=== PATIENT | female | born 1975 | race Caucasian/White ===

== ENCOUNTER → 2018-05-31 12:50 | Outpatient (CLI) | payer OTHER, SELFPAY ==
--- NOTE | 2018-05-31 12:53 | DI.RAD.S_ITS ---
PROCEDURE: XR FOOT LT MIN 3V INDICATIONS: foot inj TECHNIQUE: 3 views of the foot were acquired. COMPARISON: [facility], , FOOT COMP MIN 3VW (LT), 10/03/2014, 15:16. FINDINGS: Bones: No fractures or dislocations. No suspicious bony lesions. Mild first metatarsophalangeal joint degeneration. There is calcaneal spurring. Soft tissues: No tibiotalar joint effusion. Achilles tendon appears normal. IMPRESSION: 1. No fractures. 2. Mild degenerative joint disease. 3. Calcaneal spurring. Dictated by: Naomi Gordillo M.D. on 05/31/2018 at 17:40 Approved by: Naomi Gordillo M.D. on 05/31/2018 at 17:42
[2018-05-31 14:32] LABS: Add Manual Diff / Slide Review NO; Basophils Percent Auto 0.4 % (0-2); Eosinophils Percent Auto 0.3 % (2-4); Hematocrit 39.4 % (36-46); Hemoglobin 13.5 g/dL (12.0-16.0); Lymphocytes Percent Auto 29.4 % (25-40); Mean Corpuscular HGB Conc 34.2 % (30-36); Mean Corpuscular Hemoglobin 30.8 PG (26-34); Monocytes Percent Auto 4.6 % (3-14); Neutrophils Absolute Auto 5800 /uL (3000-5900); Neutrophils Percent Auto 65.3 % (50-75); Platelet Count 250 X10^3/uL (150-400); Red Blood Cell Count 4.37 X10^6/uL (4.0-5.2); Red Cell Distribution Width 13.6 % (11.6-14.8); White Blood Cell Count 8.8 X10^3/uL (4.5-11.0)
[2018-05-31 15:08] LABS: Erythrocyte Sedimentation Rate 21 MM/HR (0-20)
[2018-05-31 15:28] LABS: Prothrombin Time 10.7 SECONDS (10.1-12.7)
[2018-05-31 15:31] LABS: PTT Partial Thromboplastin Tim 30 SECONDS (26.4-36.2)
[2018-05-31 15:37] LABS: Alanine Aminotransferase 24 IU/L (9-52); Albumin 4.5 g/dL (3.5-5.0); Albumin Globulin Ratio 1.4 (1.0-2.8); Alkaline Phosphatase 65 U/L (38-126); Aspartate Aminotransferase 24 IU/L (14-36); BUN Creatinine Ratio 17.1 (6-22); Bilirubin Total 0.9 mg/dL (0.2-1.3); Blood Urea Nitrogen 12 mg/dL (7-17); C-Reactive Protein Quant < 0.5 mg/dL (<1.0); Calcium 9.6 mg/dL (8.4-10.2); Carbon Dioxide 29 mmol/L (22-32); Chloride 100 mmol/L (98-107); Cholesterol 162 mg/dL (140-199); Estimated Glomerular Filt Rate > 60.0 mL/min (>60); Globulin 3.3 g/dL (1.7-4.1); Glucose 93 mg/dL (70-100); HDL Cholesterol 45 mg/dL (40-60); HEMOLYSIS < 15 (0-50); LDL Cholesterol Calculated 89 mg/dL (<100); Potassium 4.1 mmol/L (3.4-5.1); Sodium 140 mmol/L (137-145); Total Protein 7.8 g/dL (6.3-8.2); Triglycerides 140 mg/dL (35-150)
[2018-05-31 15:49] LABS: Follicle Stimulating Hormone 1.98 mIU/mL; Luteinizing Hormone 2.55 mIU/mL
== END ==
PROVIDERS: PCP Family Medicine; Visit Provider Family Medicine
DX: R53.83 Other fatigue (principal); S99.929A Unspecified injury of unspecified foot, initial encounter
CPT/HCPCS: 36415; 73630; 80053; 80061; 83001; 83002; 84443; 85025; 85610; 85651; 85730; 86140

== ENCOUNTER → 2018-10-19 10:49 | Outpatient (CLI) | payer OTHER, SELFPAY ==
[2018-10-19 11:49] LABS: Add Manual Diff / Slide Review NO; Basophils Percent Auto 0.2 % (0-2); Eosinophils Percent Auto 0.4 % (2-4); Hematocrit 40.7 % (36-46); Hemoglobin 13.5 g/dL (12.0-16.0); Lymphocytes Percent Auto 15.9 % (25-40); Mean Corpuscular HGB Conc 33.1 % (30-36); Mean Corpuscular Hemoglobin 29.4 PG (26-34); Mean Corpuscular Volume 88.8 fL (80-100); Monocytes Percent Auto 4.8 % (3-14); Neutrophils Absolute Auto 9700 /uL (3000-5900); Neutrophils Percent Auto 78.7 % (50-75); Platelet Count 276 X10^3/uL (150-400); Red Blood Cell Count 4.59 X10^6/uL (4.0-5.2); White Blood Cell Count 12.4 X10^3/uL (4.5-11.0)
[2018-10-19 12:17] LABS: Alanine Aminotransferase 29 IU/L (9-52); Albumin 4.5 g/dL (3.5-5.0); Albumin Globulin Ratio 1.2 (1.0-2.8); Alkaline Phosphatase 76 U/L (38-126); Aspartate Aminotransferase 25 IU/L (14-36); BUN Creatinine Ratio 16.7 (6-22); Bilirubin Total 0.9 mg/dL (0.2-1.3); Blood Urea Nitrogen 10 mg/dL (7-17); Calcium 9.8 mg/dL (8.4-10.2); Carbon Dioxide 29 mmol/L (22-32); Chloride 100 mmol/L (98-107); Cholesterol 245 mg/dL (140-199); Estimated Glomerular Filt Rate > 60.0 mL/min (>60); Globulin 3.7 g/dL (1.7-4.1); Glucose 106 mg/dL (70-100); HDL Cholesterol 51 mg/dL (40-60); HEMOLYSIS < 15 (0-50); LDL Cholesterol Calculated 164 mg/dL (<100); Potassium 4.4 mmol/L (3.4-5.1); Sodium 141 mmol/L (137-145); Total Protein 8.2 g/dL (6.3-8.2); Triglycerides 148 mg/dL (35-150)
[2018-10-19 12:41] LABS: Thyroid Stimulating Hormone 0.95 uIU/mL (0.47-4.68)
== END ==
PROVIDERS: PCP Family Medicine; Visit Provider Family Medicine
DX: J32.9 Chronic sinusitis, unspecified (principal)
CPT/HCPCS: 36415; 80053; 80061; 84443; 85025

== ENCOUNTER → 2018-11-10 13:16 | Outpatient (CLI) | payer OTHER, SELFPAY ==
--- NOTE | 2018-11-10 13:18 | DI.RAD.S_ITS ---
PROCEDURE: XR CHEST 2V INDICATIONS: chest wall pain TECHNIQUE: 2 views of the chest were acquired. COMPARISON: [facility], CT, CHEST/ABDOMEN WITH CONTRAST, 02/02/2017, 14:23. FINDINGS: Surgical changes and devices: None. Lungs and pleura: No pleural effusions or pneumothorax. Lungs are clear. Mediastinum: Mediastinal contours are normal. Heart size is normal. Bones and chest wall: No suspicious bony abnormalities. Soft tissues appear unremarkable. IMPRESSION: No acute cardiopulmonary disease. Dictated by: Naomi Gordillo M.D. on 11/10/2018 at 15:12 Approved by: Naomi Gordillo M.D. on 11/10/2018 at 15:13
== END ==
PROVIDERS: PCP Family Medicine; Visit Provider Family Medicine
DX: R07.89 Other chest pain (principal)
CPT/HCPCS: 71046

== ENCOUNTER → 2019-07-12 12:38 | Outpatient (CLI) | payer OTHER, SELFPAY ==
--- NOTE | 2019-07-12 12:40 | DI.RAD.S_ITS ---
PROCEDURE: XR KNEE RT 3V INDICATIONS: right knee pain/ popping TECHNIQUE: 3 views of the knee were acquired. COMPARISON: [facility] [place], [place], KNEE 3VW (RT), 03/03/2011, 9:06. FINDINGS: Bones: No fractures or dislocations. No suspicious bony lesions. Mild tricompartmental osteoarthritis. Soft tissues: No joint effusion. No suspicious soft tissue calcifications. IMPRESSION: 1. No acute osseous lesion. If symptoms and/or clinical suspicion for pathology persists, further assessment with advanced imaging (e.g. CT, MRI or bone scan) may be helpful. 2. Mild tricompartmental osteoarthritis. Dictated by: Tita Nobles MD, PhD on 07/12/2019 at 16:53 Approved by: Tita Nobles MD, PhD on 07/12/2019 at 16:55
== END ==
PROVIDERS: PCP Family Medicine; Visit Provider Family Medicine
DX: M17.11 Unilateral primary osteoarthritis, right knee (principal)
CPT/HCPCS: 73562

== ENCOUNTER → 2019-12-20 11:43 | Outpatient (CLI) | payer OTHER, SELFPAY ==
--- NOTE | 2019-12-20 11:44 | DI.RAD.S_ITS ---
PROCEDURE: XR KNEE RT 3V INDICATIONS: medial rt knee pain, status post fall TECHNIQUE: 3 views of the knee were acquired. COMPARISON: [facility], CR, XR KNEE RT 3V, 07/12/2019, 12:46. FINDINGS: Bones: No fractures or dislocations. No suspicious bony lesions. Soft tissues: No joint effusion. No suspicious soft tissue calcifications. IMPRESSION: Source of knee pain is not seen. No joint effusion or loose body found. No prior trauma seen. Dictated by: Hans Jauregui M.D. on 12/20/2019 at 12:18 Approved by: Hans Jauregui M.D. on 12/20/2019 at 12:22
== END ==
PROVIDERS: PCP Family Medicine; Referring Provider Family Medicine; Visit Provider Family Medicine
DX: M25.561 Pain in right knee (principal); R55 Syncope and collapse
CPT/HCPCS: 73562

== ENCOUNTER → 2020-01-01 16:51 | Outpatient (CLI) | payer OTHER, SELFPAY ==
--- NOTE | 2020-01-01 16:52 | DI.MRI.S_ITS ---
PROCEDURE: MR KNEE RT WO CON INDICATIONS: Medial knee joint pain TECHNIQUE: Noncontrast sagittal PD fast spin echo and T2 fast spin echo with fat saturation, sagittal 3-D FLASH with fat saturation; coronal T1 spin echo and PD fast spin echo with fat saturation, and axial PD fast spin echo with fat saturation through the knee. COMPARISON: [facility], CR, XR KNEE RT 3V, 12/20/2019, 11:50. [facility], CR, XR KNEE RT 3V, 07/12/2019, 12:46. CR, KNEE 3VW (RT), 02/19/2009, 17:34. FINDINGS: Image quality: Excellent. Menisci: The medial and lateral menisci demonstrate normal morphology and internal signal. The meniscal root ligaments appear intact. Cruciate ligaments: The anterior and posterior cruciate ligaments appear intact. Medial structures: The medial collateral ligament appears intact but the substance of the MCL and is contiguous extension anteriorly into the medial patellar retinaculum demonstrates a linear fluid signal best seen on series 6 image 10, with immediately adjacent mild overlying edema in the anterior medial subcutaneous fat. The appearance is suggestive of a partial thickness tear within the substance of this retinaculum, and is considered unlikely to represent a manifestation of isolated tendinitis.. The posterior oblique ligament, semimembranosus tendon insertions, oblique popliteal ligament, and meniscocapsular junction appear intact. Visualized portions of the pes anserinus tendons appear normal. No abnormal bursal fluid. Lateral structures: The lateral collateral ligament, long and short heads of the biceps femoris tendon appear intact. The popliteus tendon appears normal; the popliteofibular ligament appears intact. The posterosuperior and anteroinferior popliteomeniscal fascicles appear intact. The arcuate and fabellofibular ligaments appear intact, on either side of the lateral inferior geniculate artery. Iliotibial band appears normal. Anterior structures: The quadriceps and patellar tendons appear intact. Patellar alignment is normal. No femoral trochlear dysplasia or ventral trochlear prominence. No edema in the infrapatellar fat pad. Bones and cartilage: No bone marrow contusions or fractures. The cartilage of the medial and lateral femorotibial compartments, as well as the patellofemoral compartment, appears normal in thickness. Joint space: There is physiologic knee joint fluid. No Marc's cyst. Normal appearing synovial plicae are incidentally noted. IMPRESSION: No meniscal injury, no evidence of anterior or posterior cruciate ligament injury. As discussed above there is a finding of a sharply demarcated linear band of fluid signal within the medial collateral ligament contiguously extending anteriorly within the medial patellar retinaculum. A partial-thickness anterior-posterior tear within the substance of this retinaculum is the likely etiology for that appearance. No joint effusion, no cartilage injury is found. Dictated by: Hans Jauregui M.D. on 01/02/2020 at 13:39 Approved by: Hans Jauregui M.D. on 01/02/2020 at 13:44
== END ==
PROVIDERS: PCP Family Medicine; Referring Provider Family Medicine; Visit Provider Family Medicine
DX: M25.561 Pain in right knee (principal)
CPT/HCPCS: 73721

== ENCOUNTER → 2020-01-29 13:53 | Outpatient (CLI) | payer OTHER, SELFPAY ==
--- NOTE | 2020-03-01 15:25 | PM.CARDMON.1 ---
[employer] Report Referral & Results Date Patient Seen: 01/29/20 Requesting provider: Romie Montiel Indication: Syncope Duration of monitoring (days): 14 Diary information: There were no patient diary entries or patient triggered events noted Data: Minimum heart rate identified was 43 beats per minute at 07:36 on 02/12/2020 Maximum sinus heart rate was 159 beats per minute at 15:59 on 01/31/2020 Maximum overall heart rate was 179 beats per minute at 03:20 on 02/09/2020 during a 16 beat run of SVT Less than 1% of identified beats or either ventricular supraventricular ectopic in origin Only 1 run of SVT was noted as above Impression: Minor dysrhythmias as above. No etiology for syncope identified on this study
== END ==
PROVIDERS: PCP Family Medicine; Referring Provider Family Medicine; Visit Provider Family Medicine
DX: R55 Syncope and collapse (principal)
CPT/HCPCS: 0296T; 0298T

== ENCOUNTER → 2020-06-13 12:41 | Outpatient (CLI) | payer OTHER, SELFPAY ==
--- NOTE | 2020-06-13 12:44 | DI.RAD.S_ITS ---
PROCEDURE: XR SACRUM COCCYX MIN 2V INDICATIONS: Coccydynia TECHNIQUE: 3 views of the sacrum and coccyx acquired. COMPARISON: [facility], CT, ABDOMEN/PELVIS WITH CONTRAST, 07/29/2017, 21:28. FINDINGS: Bones: Possible coccyx fracture although radiographically this is age indeterminate and is likely chronic. Soft tissues: Visualized bowel gas pattern is normal. No suspicious soft tissue densities. IMPRESSION: Possible coccyx fracture however radiographically this appears chronic. This appears unchanged since prior CT dated 07/29/17. Dictated by: Rio Hill M.D. on 06/13/2020 at 15:08 Approved by: Rio Hill M.D. on 06/13/2020 at 15:11
[2020-06-13 13:28] LABS: Add Manual Diff / Slide Review NO; Basophils Absolute Auto 0 /uL (0-100); Basophils Percent Auto 0.5 % (0-2); Eosinophils Absolute Auto 0 /uL (0-450); Eosinophils Percent Auto 0.1 % (2-4); Hematocrit 39.8 % (36-46); Hemoglobin 13.6 g/dL (12.0-16.0); Lymphocytes Absolute Auto 2100 /uL (1100-4500); Lymphocytes Percent Auto 22.9 % (25-40); Mean Corpuscular HGB Conc 34.2 % (30-36); Mean Corpuscular Hemoglobin 32.3 PG (26-34); Mean Corpuscular Volume 94.3 fL (80-100); Monocytes Absolute Auto 400 /uL (0-900); Monocytes Percent Auto 4.7 % (3-14); Neutrophils Absolute Auto 6700 /uL (1500-7000); Neutrophils Percent Auto 71.8 % (50-75); Platelet Count 226 X10^3/uL (150-400); Red Blood Cell Count 4.22 X10^6/uL (4.0-5.2); White Blood Cell Count 9.3 X10^3/uL (4.5-11.0)
[2020-06-13 13:43] LABS: Prothrombin Time 11.4 SECONDS (10.1-12.7)
[2020-06-13 14:02] LABS: Alanine Aminotransferase 13 IU/L (<35); Albumin 4.3 g/dL (3.5-5.0); Albumin Globulin Ratio 1.5 (1.0-2.8); Alkaline Phosphatase 52 U/L (38-126); Aspartate Aminotransferase 20 IU/L (14-36); BUN Creatinine Ratio 15.4 (6-22); Blood Urea Nitrogen 10 mg/dL (7-17); Calcium 9.8 mg/dL (8.4-10.2); Carbon Dioxide 29 mmol/L (22-32); Chloride 103 mmol/L (98-107); Estimated Glomerular Filt Rate > 60.0 mL/min (>60); Globulin 2.8 g/dL (1.7-4.1); Glucose 96 mg/dL (70-100); HEMOLYSIS < 15 (0-50); Potassium 3.8 mmol/L (3.4-5.1); Sodium 137 mmol/L (137-145); Total Protein 7.1 g/dL (6.3-8.2)
[2020-06-13 14:04] LABS: C-Reactive Protein Quant < 0.5 mg/dL (<1.0); Erythrocyte Sedimentation Rate 6 MM/HR (0-20)
== END ==
PROVIDERS: PCP Family Medicine; Referring Provider Family Medicine; Visit Provider Family Medicine
DX: M53.3 Sacrococcygeal disorders, not elsewhere classified (principal); K62.5 Hemorrhage of anus and rectum
CPT/HCPCS: 36415; 72220; 80053; 85025; 85610; 85651; 86140

== ENCOUNTER → 2020-08-08 17:15 | Outpatient (CLI) | payer OTHER, SELFPAY ==
[2020-08-08 17:23] LABS: Bacteria Urine None Seen
[2020-08-08 18:51] LABS: Culture Indicated Urine Cult Not Indicated; RBC Urine 0-1/HPF (0-5/HPF); Squamous Epithelial Cell Urine 0-1 /HPF (0-5/HPF); WBC Urine 0-1/HPF (0-5/HPF)
== END ==
PROVIDERS: PCP Family Medicine; Referring Provider Family Medicine; Visit Provider Family Medicine
DX: R30.0 Dysuria (principal)
CPT/HCPCS: 81015

== ENCOUNTER 2021-01-19 12:54 | Emergency (ER) | payer OTHER, SELFPAY ==
[2021-01-19] VITALS (9 sets, daily range): BP systolic 102–143; BP diastolic 62–93; PULSE 60–121; RESP 11–23; TEMP 36.7; O2SAT 99–100; BMI 28.0
[2021-01-19] MEDS: SODIUM CHLORIDE 0.9% 1,000 ML 1000 ML IV (13:19)
[2021-01-19] MEDS: ONDANSETRON 4 MG/2 ML INJ IV (13:20)
[2021-01-19 13:25] LABS: Add Manual Diff / Slide Review NO; Basophils Absolute Auto 0 /uL (0-100); Basophils Percent Auto 0.4 % (0-2); Eosinophils Absolute Auto 0 /uL (0-450); Eosinophils Percent Auto 0.8 % (2-4); Hematocrit 40.2 % (36-46); Hemoglobin 13.9 g/dL (12.0-16.0); Lymphocytes Absolute Auto 2100 /uL (1100-4500); Mean Corpuscular HGB Conc 34.6 % (30-36); Mean Corpuscular Hemoglobin 32.4 PG (26-34); Mean Corpuscular Volume 93.6 fL (80-100); Monocytes Absolute Auto 400 /uL (0-900); Monocytes Percent Auto 6.9 % (3-14); Neutrophils Absolute Auto 3100 /uL (1500-7000); Neutrophils Percent Auto 54.9 % (50-75); Platelet Count 213 X10^3/uL (150-400); Red Blood Cell Count 4.29 X10^6/uL (4.0-5.2); Red Cell Distribution Width 12.3 % (11.6-14.8); White Blood Cell Count 5.6 X10^3/uL (4.5-11.0)
--- NOTE | 2021-01-19 13:30 | ED.ABDPAIN ---
HPI - Abdominal Pain <Ellie DukeMEDARDOP-BC - Last Filed: 01/19/21 17:25> General Chief Complaint: Abdominal Pain Stated Complaint: Stomach Pain, Nausea, Chest Pains Time Seen by Provider: 01/19/21 12:57 Source: patient Mode of arrival: Ambulatory Limitations: no limitations History of Present Illness HPI narrative: The patient is a 45-year-old female former smoker with history of coronavirus infection in November who presents with a chief complaint of abdominal pain over the past few days. She states it is worse after she eats. She had an episode of chest pain yesterday. Complains of nausea, no vomiting. She states she was recently treated for constipation with MiraLax as well as magnesium citrate. This was treated a week before her abdominal pain started. She denies any fevers muscle aches or chills. Complains of abdominal pain cramping in epigastric pain. She states she is unable eat, endorses a 5 lb weight less recently. She wonders if she has a COVID long hauler syndrome. Denies any vaginal discharge. States the pain is in the epigastric, upper abdomen area Related Data Home Medications Medication Instructions Recorded Confirmed naproxen 500 mg tablet 500 mg PO Q12H PRN tab 06/13/20 01/22/21 zolmitriptan 5 mg nasal spray 1 spray NASAL Q24H PRN each 06/13/20 01/22/21 amitriptyline 10 mg tablet 10 mg PO BEDTIME 12/23/20 01/22/21 topiramate 25 mg tablet See Rx Instructions PO DAILY 12/23/20 01/22/21 Previous Rx's Medication Instructions Recorded epinephrine 0.3 mg/0.3 mL 0.3 mg IM SEE INSTRUCTIONS #1 each 07/30/20 injection, auto-injector omeprazole 20 mg capsule,delayed 20 mg PO QDAY #90 cap 07/30/20 release ondansetron 4 mg PO Q6H PRN #14 tab 01/19/21 sucralfate [Carafate] 10 ml PO QACHS #420 ml 01/19/21 Allergies Allergy/AdvReac Type Severity Reaction Status Date / Time bee venom protein (honey bee) Allergy Severe anaphylaxis Verified 01/22/21 15:27 [BEE VENOM PROTEIN (HONEY BEE)] Mosquito Allergy Severe Swelling Uncoded 01/22/21 15:27 and turns purple Review of Systems <TIMOTEO Mustafa - Last Filed: 01/19/21 17:25> Review of Systems Narrative: GENERAL: Denies chills, fatigue, malaise, fever, sweats. HEENT: Denies sinus pain, ear pain, sore throat, difficulty swallowing, dizziness. RESPIRATORY: Denies dyspnea, cough, wheezing, hemoptysis, sputum. CARDIOVASCULAR: Denies chest pain, palpitations, orthopnea, edema, GASTROINTESTINAL: See HPI : Denies dysuria, frequency, incontinence, hematuria, urinary retention. MUSCULOSKELETAL: denies weakness, joint pain, or bony pain SKIN: Denies rash, skin lesions, or other NEUROLOGIC: Denies weakness, headache, numbness, change in speech, confusion, seizures, incoordination. PSYCHIATRIC: No concerning psychosocial issues. 12 point review of systems is negative except for those stated above Patient History <TIMOTEO Mustafa - Last Filed: 01/19/21 17:25> Medical History Abnormal Pap smear of cervix (1996) Chronic headaches (1999) Constipation COVID-19 Endometriosis (1996) Fibroids (1996) Foot pain (2010) GERD (gastroesophageal reflux disease) (2012) History of heavy periods (1996) IBS (irritable bowel syndrome) (2012) Infertility (1996) Irregular periods/menstrual cycles (1996) Ovarian cyst (1996) Painful menstrual periods (1996) Recurrent sinusitis (2011) Urinary incontinence (2004) Surgical History Anesthesia History of bilateral salpingectomy (03/20/16) History of removal of cyst (2003) Status post hysterectomy (06/2009) Status post laparoscopy (1997) Status post laparoscopy (1998) Status post laparoscopy (2004) Status post laparoscopy (2007) Status post laparoscopy (03/20/16) Status post laparoscopy (12/10/17) Status post left foot surgery (2011) Status post left foot surgery (2010) Family History Brother Age: 46 High cholesterol Hiatal hernia Schatzki's ring Father Age: 70 Diabetes mellitus High cholesterol Grandfather Heart disease Heart attack Mother Age: 64 Essential hypertension Grandmother Perforated intestine Grandfather Colon cancer Grandmother Diabetes mellitus Social History Smoking Status: Former smoker Tobacco: How many years used: 2 alcohol intake: current (2 drinks per week ) substance use type: does not use Smoking Status: Former smoker alcohol intake frequency: 0-2 drinks per day Substance Use Type: does not use Exam <TIMOTEO Mustafa - Last Filed: 01/19/21 17:25> Narrative Exam Narrative: GENERAL: This is a well-nourished, well-developed patient, in no acute distress HEAD: Atraumatic. Normocephalic. No temporal or scalp tenderness. EYES: Pupils equal round and reactive. Extraocular motions intact. No scleral icterus. No injection or drainage. ENT: Nose without bleeding, purulent drainage or septal hematoma. Wearing a mask Airway patent. NECK: Trachea midline. No JVD or lymphadenopathy. Supple, nontender, no meningeal signs. CARDIOVASCULAR: Regular rate and rhythm RESPIRATORY: Clear to auscultation. Breath sounds equal bilaterally. No wheezes, rales, or rhonchi. No cough. No increased respiratory effort. No accessory muscle use GASTROINTESTINAL: Abdomen soft, diffusely tender to palpation, slight occasional guarding middle right side of abdomen, active bowel sounds all 4 quadrant No hepato-splenomegaly, or palpable masses. No guarding. EXTREMITIES: No clubbing, cyanosis, or edema. No joint tenderness, effusion, or edema noted. BACK: Nontender without deformity or crepitance. No flank tenderness. NEURO: AOx3. SKIN: No rash or erythema on visible skin Initial Vital Signs Initial Vital Signs: Vital Signs Temperature 98.1 F 01/19/21 12:55 Pulse Rate 121 H 01/19/21 12:55 Respiratory Rate 20 01/19/21 12:55 Blood Pressure 143/93 H 01/19/21 12:55 Pulse Oximetry 99 01/19/21 12:55 <Sherine Smyth DO - Last Filed: 01/27/21 10:23> Initial Vital Signs Initial Vital Signs: Vital Signs Temperature 98.1 F 01/19/21 12:55 Pulse Rate 121 H 01/19/21 12:55 Respiratory Rate 20 01/19/21 12:55 Blood Pressure 143/93 H 01/19/21 12:55 Pulse Oximetry 99 01/19/21 12:55 Scores <TIMOTEO Mustafa - Last Filed: 01/19/21 17:25> GCS Rylee coma scale eye opening: Spontaneous Rylee coma scale verbal response: Orientated [place] coma scale motor response: Obey commands Rylee coma scale total score: 15 Course <TIMOTEO Mustafa - Last Filed: 01/19/21 17:25> Orders Ordered: Discontinued Medications Al Hydrox/Mg Hydrox/Simethicone 20 ml/ Lidocaine HCl 15 ml 0 ml PO NOW ONE Stop: 01/19/21 15:55 Last Admin: 01/19/21 16:00 Dose: 35 ml Documented by: AFUA Sodium Chloride (Normal Saline 0.9%) 1,000 mls @ 1,000 mls/hr IV BOLUS ONE Stop: 01/19/21 14:05 Last Infusion: 01/19/21 14:37 Dose: 0 mls/hr Documented by: Admin: 01/19/21 13:19 Dose: 1,000 mls/hr Documented by: AFUA Magnesium Citrate (Magnesium Citrate 300 Ml Solution) 300 ml PO NOW ONE Stop: 01/19/21 15:55 Last Admin: 01/19/21 16:00 Dose: 300 ml Documented by: AFUA Ondansetron HCl (Ondansetron 4 Mg/2 Ml Inj) 4 mg IV NOW ONE Stop: 01/19/21 13:00 Last Admin: 01/19/21 13:20 Dose: 4 mg Documented by: AFUA Sucralfate (Sucralfate 1 Gm/10 Ml Oral Susp) 1 gm PO NOW ONE Stop: 01/19/21 15:55 Last Admin: 01/19/21 15:59 Dose: 1 gm Documented by: AFUA Vital Signs Vital signs: Vital Signs - 8 hr 01/19/21 12:55 01/19/21 13:06 01/19/21 13:30 Temperature 98.1 F Pulse Rate 121 H 85 71 Respiratory Rate 20 23 20 Blood Pressure 143/93 H 141/79 H 117/73 Pulse Oximetry 99 99 01/19/21 14:00 01/19/21 14:30 01/19/21 15:00 Temperature Pulse Rate 60 66 64 Respiratory Rate 21 17 14 Blood Pressure 111/66 102/62 Pulse Oximetry 100 100 100 01/19/21 15:30 01/19/21 16:00 01/19/21 16:30 Temperature Pulse Rate 72 63 73 Respiratory Rate 16 11 L 15 Blood Pressure 109/71 112/71 Pulse Oximetry 100 100 99 <Sherine Smyth, DO - Last Filed: 01/27/21 10:23> Orders Ordered: Discontinued Medications Al Hydrox/Mg Hydrox/Simethicone 20 ml/ Lidocaine HCl 15 ml 0 ml PO NOW ONE Stop: 01/19/21 15:55 Last Admin: 01/19/21 16:00 Dose: 35 ml Documented by: AFUA Sodium Chloride (Normal Saline 0.9%) 1,000 mls @ 1,000 mls/hr IV BOLUS ONE Stop: 01/19/21 14:05 Last Infusion: 01/19/21 14:37 Dose: 0 mls/hr Documented by: Admin: 01/19/21 13:19 Dose: 1,000 mls/hr Documented by: AFUA Magnesium Citrate (Magnesium Citrate 300 Ml Solution) 300 ml PO NOW ONE Stop: 01/19/21 15:55 Last Admin: 01/19/21 16:00 Dose: 300 ml Documented by: AFUA Ondansetron HCl (Ondansetron 4 Mg/2 Ml Inj) 4 mg IV NOW ONE Stop: 01/19/21 13:00 Last Admin: 01/19/21 13:20 Dose: 4 mg Documented by: AFUA Sucralfate (Sucralfate 1 Gm/10 Ml Oral Susp) 1 gm PO NOW ONE Stop: 01/19/21 15:55 Last Admin: 01/19/21 15:59 Dose: 1 gm Documented by: AFUA Vital Signs Vital signs: Vital Signs - 8 hr 01/19/21 12:55 01/19/21 13:06 01/19/21 13:30 Temperature 98.1 F Pulse Rate 121 H 85 71 Respiratory Rate 20 23 20 Blood Pressure 143/93 H 141/79 H 117/73 Pulse Oximetry 99 99 01/19/21 14:00 01/19/21 14:30 01/19/21 15:00 Temperature Pulse Rate 60 66 64 Respiratory Rate 21 17 14 Blood Pressure 111/66 102/62 Pulse Oximetry 100 100 100 01/19/21 15:30 01/19/21 16:00 01/19/21 16:30 Temperature Pulse Rate 72 63 73 Respiratory Rate 16 11 L 15 Blood Pressure 109/71 112/71 Pulse Oximetry 100 100 99 MDM - Abdominal Pain <Ellie Duke, LAY MIDWIFE- - Last Filed: 01/19/21 17:25> Lab Data Attestation: I reviewed the patient's lab results. Result diagrams: 01/19/21 13:16 01/19/21 13:16 Labs: Lab Results 01/19/21 01/19/21 01/19/21 Range/Units 13:16 13:16 13:16 WBC 5.6 (4.5-11.0) X10^3/uL RBC 4.29 (4.0-5.2) X10^6/uL Hgb 13.9 (12.0-16.0) g/dL Hct 40.2 (36-46) % MCV 93.6 (80-100) fL MCH 32.4 (26-34) PG MCHC 34.6 (30-36) % RDW 12.3 (11.6-14.8) % Plt Count 213 (150-400) X10^3/uL Neut % (Auto) 54.9 (50-75) % Lymph % (Auto) 37.0 (25-40) % [place] % (Auto) 6.9 (3-14) % Eos % (Auto) 0.8 L (2-4) % Baso % (Auto) 0.4 (0-2) % Neut # (Auto) 3100 (9497-6946) /uL Lymph # (Auto) 2100 (7850-7514) /uL [place] # (Auto) 400 (0-900) /uL Eos # (Auto) 0 (0-450) /uL Baso # (Auto) 0 (0-100) /uL PT 11.4 (10.1-12.7) SECONDS INR 1.0 (0.9-1.3) APTT 35 D (26.4-36.2) SECONDS D-Dimer < 200 (<230) ng/mL Sodium 139 (137-145) mmol/L Potassium 3.9 (3.4-5.1) mmol/L Chloride 107 (98-107) mmol/L Carbon Dioxide 24 (22-32) mmol/L BUN 11 (7-17) mg/dL Creatinine 0.61 (0.52-1.04) mg/dL Estimated GFR > 60.0 (>60) mL/min BUN/Creatinine Ratio 18.0 (6-22) Glucose 103 H (70-100) mg/dL Calcium 9.6 (8.4-10.2) mg/dL Total Bilirubin 0.8 (0.2-1.3) mg/dL AST 28 (14-36) IU/L ALT 31 (<35) IU/L Alkaline Phosphatase 46 (38-126) U/L Total Creatine Kinase 55 (30-135) U/L CK-MB (CK-2) TNP CK-MB (CK-2) Rel Index TNP Troponin I < 0.012 (0.01-0.034) ng/mL NT-Pro-B Natriuret Pep (<125) pg/mL Total Protein 7.4 (6.3-8.2) g/dL Albumin 4.3 (3.5-5.0) g/dL Globulin 3.1 (1.7-4.1) g/dL Albumin/Globulin Ratio 1.4 (1.0-2.8) Amylase 51 (30-110) U/L Lipase 42 (23-300) U/L 01/19/21 Range/Units 13:16 WBC (4.5-11.0) X10^3/uL RBC (4.0-5.2) X10^6/uL Hgb (12.0-16.0) g/dL Hct (36-46) % MCV (80-100) fL MCH (26-34) PG MCHC (30-36) % RDW (11.6-14.8) % Plt Count (150-400) X10^3/uL Neut % (Auto) (50-75) % Lymph % (Auto) (25-40) % [place] % (Auto) (3-14) % Eos % (Auto) (2-4) % Baso % (Auto) (0-2) % Neut # (Auto) (7521-8052) /uL Lymph # (Auto) (7170-4087) /uL [place] # (Auto) (0-900) /uL Eos # (Auto) (0-450) /uL Baso # (Auto) (0-100) /uL PT (10.1-12.7) SECONDS INR (0.9-1.3) APTT (26.4-36.2) SECONDS D-Dimer (<230) ng/mL Sodium (137-145) mmol/L Potassium (3.4-5.1) mmol/L Chloride (98-107) mmol/L Carbon Dioxide (22-32) mmol/L BUN (7-17) mg/dL Creatinine (0.52-1.04) mg/dL Estimated GFR (>60) mL/min BUN/Creatinine Ratio (6-22) Glucose (70-100) mg/dL Calcium (8.4-10.2) mg/dL Total Bilirubin (0.2-1.3) mg/dL AST (14-36) IU/L ALT (<35) IU/L Alkaline Phosphatase (38-126) U/L Total Creatine Kinase (30-135) U/L CK-MB (CK-2) CK-MB (CK-2) Rel Index Troponin I (0.01-0.034) ng/mL NT-Pro-B Natriuret Pep 74 (<125) pg/mL Total Protein (6.3-8.2) g/dL Albumin (3.5-5.0) g/dL Globulin (1.7-4.1) g/dL Albumin/Globulin Ratio (1.0-2.8) Amylase (30-110) U/L Lipase (23-300) U/L Point of care testing: Urine Dip Bedside Urine Glucose Negative Bedside Urine Bilirubin - Negative Bedside Urine Ketone + 15 Urine Specific [place] 1.015 Bedside Urine Occult Blood - Negative Bedside Urine pH 6.5 Bedside Urine Protein - Negative Bedside Urine Urobilinogen - Negative Bedside Urine Nitrite - Negative Bedside Urine Leukocytes - Negative Esterase Imaging Data CT scan - abdomen/pelvis: Radiologist's Impression: [address] [id number] Scan ReportSigned Patient: Carmelita Olivares JMR#: [id number]: [id number]:[id number]/Sex: 45 / FDate of Service: 01/19/21Loc: EDAccession Number: [id number] Procedure: CT abdomen pelvis w con Ordering Provider: Ellie Duke-BC PROCEDURE: CT ABDOMEN PELVIS W CON INDICATIONS: abd pain, weight loss, nausea TECHNIQUE: After the administration of intravenous contrast, 5 mm thick sections acquired from the diaphragm to the symphysis. 5 mm coronal and sagittal reformats were acquired. For radiation dose reduction, the following was used: automated exposure control, adjustment of mA and/or kV according to patient size. COMPARISON: [facility], CT, ABDOMEN/PELVIS WITH CONTRAST, 07/29/2017, 21:28. FINDINGS: Image quality: Excellent. ABDOMEN: Lung bases: Lung bases are clear. Heart size is normal. Solid organs: Liver is normal in size and enhancement. Gallbladder is surgically absent. Biliary system is non dilated. Pancreas enhances normally. Spleen is normal in size and enhancement. No adrenal nodules. Kidneys demonstrate normal size and enhancement, without hydronephrosis. Peritoneum and bowel: Bowel loops demonstrate normal wall thickness and caliber. No free fluid or air. Sigmoid diverticulosis without evidence of diverticulitis. Large amount right colonic fecal debris. Normal appendix. Nodes and vessels: No retroperitoneal or mesenteric adenopathy by size criteria. Aorta and inferior vena cava are normal in size. Miscellaneous: No ventral hernias. PELVIS: Genitourinary: Bladder wall thickness is normal. Miscellaneous: No inguinal hernias or adenopathy. Remote hysterectomy. Bilateral ovarian cysts. Bones: No suspicious bony lesions. No vertebral body compression fractures. IMPRESSION: 1. No evidence of acute abdominal process. 2. Sigmoid diverticulosis. 3. Large right colonic fecal load. Dictated by: Francesco Bailey M.D. on 01/19/2021 at 14:08 Approved by: Francesco Bailey M.D. on 01/19/2021 at 14:21 ECG Data Attestation: I personally reviewed and interpreted this ECG as follows: Interpretation: Normal sinus rhythm. Ventricular rate 70. P.r. interval 154. QRS 86. No ectopy noted. Viewed by Dr Libra MENDOZA Narrative Medical decision making narrative: The patient is a 45-year-old female who presents with a chief complaint of an episode of chest pain yesterday as well as abdominal pain and discomfort. She has a history of GERD as well as coronavirus, has had slight episode of chest pain off and on since COVID. Overall her lab work is reassuring, no leukocytosis, negative troponin. However given to her pain to palpation I did get a CT abdomen pelvis. D-dimer helps rule out PE. Her CT scan shows a large right colonic fecal load. I discussed at length remedies for constipation, magnesium citrate, increasing fiber, increasing fluid, stool softener, occasional senna. She was discharged with magnesium citrate. Low suspicion of cardiac etiology given her negative D-dimer, negative troponin the next day after an episode of chest pain. Could be related to her acid reflux, so she was given GI cocktail and Carafate which she states helped improve her pain a lot. I encouraged follow-up with primary care provider in the next few days as well as very strict ER return precautions including abdominal pain with fever, inability keep down fluids etcetera. Patient is able to tolerate p.o. in the emergency department. No questions or concerns upon discharge states understanding return precautions as well as follow-up care. <Sherine Smyth, DO - Last Filed: 01/27/21 10:23> Lab Data Labs: Lab Results 01/19/21 01/19/21 01/19/21 Range/Units 13:16 13:16 13:16 WBC 5.6 (4.5-11.0) X10^3/uL RBC 4.29 (4.0-5.2) X10^6/uL Hgb 13.9 (12.0-16.0) g/dL Hct 40.2 (36-46) % MCV 93.6 (80-100) fL MCH 32.4 (26-34) PG MCHC 34.6 (30-36) % RDW 12.3 (11.6-14.8) % Plt Count 213 (150-400) X10^3/uL Neut % (Auto) 54.9 (50-75) % Lymph % (Auto) 37.0 (25-40) % [place] % (Auto) 6.9 (3-14) % Eos % (Auto) 0.8 L (2-4) % Baso % (Auto) 0.4 (0-2) % Neut # (Auto) 3100 (8748-8753) /uL Lymph # (Auto) 2100 (0678-5665) /uL [place] # (Auto) 400 (0-900) /uL Eos # (Auto) 0 (0-450) /uL Baso # (Auto) 0 (0-100) /uL PT 11.4 (10.1-12.7) SECONDS INR 1.0 (0.9-1.3) APTT 35 D (26.4-36.2) SECONDS D-Dimer < 200 (<230) ng/mL Sodium 139 (137-145) mmol/L Potassium 3.9 (3.4-5.1) mmol/L Chloride 107 (98-107) mmol/L Carbon Dioxide 24 (22-32) mmol/L BUN 11 (7-17) mg/dL Creatinine 0.61 (0.52-1.04) mg/dL Estimated GFR > 60.0 (>60) mL/min BUN/Creatinine Ratio 18.0 (6-22) Glucose 103 H (70-100) mg/dL Calcium 9.6 (8.4-10.2) mg/dL Total Bilirubin 0.8 (0.2-1.3) mg/dL AST 28 (14-36) IU/L ALT 31 (<35) IU/L Alkaline Phosphatase 46 (38-126) U/L Total Creatine Kinase 55 (30-135) U/L CK-MB (CK-2) TNP CK-MB (CK-2) Rel Index TNP Troponin I < 0.012 (0.01-0.034) ng/mL NT-Pro-B Natriuret Pep (<125) pg/mL Total Protein 7.4 (6.3-8.2) g/dL Albumin 4.3 (3.5-5.0) g/dL Globulin 3.1 (1.7-4.1) g/dL Albumin/Globulin Ratio 1.4 (1.0-2.8) Amylase 51 (30-110) U/L Lipase 42 (23-300) U/L // Range/Units 13:16 WBC (4.5-11.0) X10^3/uL RBC (4.0-5.2) X10^6/uL Hgb (12.0-16.0) g/dL Hct (36-46) % MCV (80-100) fL MCH (26-34) PG MCHC (30-36) % RDW (11.6-14.8) % Plt Count (150-400) X10^3/uL Neut % (Auto) (50-75) % Lymph % (Auto) (25-40) % [place] % (Auto) (3-14) % Eos % (Auto) (2-4) % Baso % (Auto) (0-2) % Neut # (Auto) (7366-1692) /uL Lymph # (Auto) (3577-5278) /uL [place] # (Auto) (0-900) /uL Eos # (Auto) (0-450) /uL Baso # (Auto) (0-100) /uL PT (10.1-12.7) SECONDS INR (0.9-1.3) APTT (26.4-36.2) SECONDS D-Dimer (<230) ng/mL Sodium (137-145) mmol/L Potassium (3.4-5.1) mmol/L Chloride (98-107) mmol/L Carbon Dioxide (22-32) mmol/L BUN (7-17) mg/dL Creatinine (0.52-1.04) mg/dL Estimated GFR (>60) mL/min BUN/Creatinine Ratio (6-22) Glucose (70-100) mg/dL Calcium (8.4-10.2) mg/dL Total Bilirubin (0.2-1.3) mg/dL AST (14-36) IU/L ALT (<35) IU/L Alkaline Phosphatase (38-126) U/L Total Creatine Kinase (30-135) U/L CK-MB (CK-2) CK-MB (CK-2) Rel Index Troponin I (0.01-0.034) ng/mL NT-Pro-B Natriuret Pep 74 (<125) pg/mL Total Protein (6.3-8.2) g/dL Albumin (3.5-5.0) g/dL Globulin (1.7-4.1) g/dL Albumin/Globulin Ratio (1.0-2.8) Amylase (30-110) U/L Lipase (23-300) U/L Point of care testing: Urine Dip Bedside Urine Glucose Negative Bedside Urine Bilirubin - Negative Bedside Urine Ketone + 15 Urine Specific [place] 1.015 Bedside Urine Occult Blood - Negative Bedside Urine pH 6.5 Bedside Urine Protein - Negative Bedside Urine Urobilinogen - Negative Bedside Urine Nitrite - Negative Bedside Urine Leukocytes - Negative Esterase Discharge Plan Departure Patient Disposition: Home Clinical Impression: Constipation Qualifiers: Constipation type: unspecified constipation type Qualified Code(s): K59.00 - Constipation, unspecified Abdominal pain Qualifiers: Abdominal location: generalized Qualified Code(s): R10.84 - Generalized abdominal pain Instructions: Constipation (Alternative Therapy), DI for Constipation Activity Restrictions/Additional Instructions: Thank you for trusting us with your care today. Your labs resulted well, as did your imaging. However your CT scan does show a significant stool load on the right side of your colon. I believe that we need to step up with a remedies to help the constipation that you have previously treated. As discussed, I did sent 2 prescriptions to [facility] in [place]. This includes Zofran for nausea, as discussed so be careful using this as they can be constipating. I also sent in a prescription for Carafate to to help your acid reflux. Be aware that you cannot take other medications at the same time as this medication. We have sent you home with magnesium citrate. This should help you have a bowel movement. As discussed, the things can be useful such as increasing her hydration, increasing her fiber intake, docusate as a softener, senna or smooth move tea as a laxative. You can also use the old nurses trick of warm applesauce mixed with warm prune juice and a tab of better on top. As discussed, please follow-up with primary care provider in the next few days. Please call them tomorrow and let them know that you were seen in the emergency department. Please come back to the emergency department for any acute concerns such as abdominal pain with fever, inability keep down fluids etcetera Prescriptions: New ondansetron 4 mg tablet,disintegrating 4 mg PO Q6H PRN (Reason: nausea and vomiting) Qty: 14 RF: 0 sucralfate [Carafate] 100 mg/mL suspension 10 ml PO QACHS Qty: 420 RF: 0 No Action epinephrine [EpiPen 2-Reji] 0.3 mg/0.3 mL auto-injector 0.3 mg IM SEE INSTRUCTIONS Qty: 1 RF: 3 omeprazole 20 mg capsule,delayed release(DR/EC) 20 mg PO QDAY Qty: 90 RF: 3 naproxen 500 mg tablet 500 mg PO Q12H PRNRF: 0 Zomig 5 mg spray,non-aerosol 1 spray NASAL Q24H PRNRF: 0 topiramate [Topamax] 25 mg tablet See Rx Instructions PO DAILY RF: 0 amitriptyline 10 mg tablet 10 mg PO BEDTIME RF: 0 Referrals: Ariel Osei DO [Primary Care Provider] - Stand Alone Forms: Work Release Note <Sherine Smyth DO - Last Filed: 01/27/21 10:23> Cosign ED Attending Cosignature Attestation: I was immediately available in the department for consultation. Documentation has been reviewed. I agree with assessment and plan.
[2021-01-19 13:36] LABS: Prothrombin Time 11.4 SECONDS (10.1-12.7)
[2021-01-19 13:38] LABS: PTT Partial Thromboplastin Tim 35 SECONDS (26.4-36.2)
[2021-01-19 13:40] LABS: Alanine Aminotransferase 31 IU/L (<35); Albumin 4.3 g/dL (3.5-5.0); Albumin Globulin Ratio 1.4 (1.0-2.8); Alkaline Phosphatase 46 U/L (38-126); Amylase 51 U/L (30-110); Aspartate Aminotransferase 28 IU/L (14-36); Bilirubin Total 0.8 mg/dL (0.2-1.3); Blood Urea Nitrogen 11 mg/dL (7-17); Calcium 9.6 mg/dL (8.4-10.2); Carbon Dioxide 24 mmol/L (22-32); Chloride 107 mmol/L (98-107); Creatine Kinase 55 U/L (30-135); Estimated Glomerular Filt Rate > 60.0 mL/min (>60); Globulin 3.1 g/dL (1.7-4.1); Glucose 103 mg/dL (70-100); HEMOLYSIS < 15 (0-50); Lipase 42 U/L (23-300); Potassium 3.9 mmol/L (3.4-5.1); Sodium 139 mmol/L (137-145); Total Protein 7.4 g/dL (6.3-8.2)
[2021-01-19 13:46] LABS: D Dimer < 200 ng/mL (<230)
[2021-01-19 13:52] LABS: Troponin I < 0.012 ng/mL (0.01-0.034)
[2021-01-19 14:14] LABS: NT-proBNP (BNP-Adult 18+) 74 pg/mL (<125)
--- NOTE | 2021-01-19 14:21 | DI.CT.S_ITS ---
PROCEDURE: CT ABDOMEN PELVIS W CON INDICATIONS: abd pain, weight loss, nausea TECHNIQUE: After the administration of intravenous contrast, 5 mm thick sections acquired from the diaphragm to the symphysis. 5 mm coronal and sagittal reformats were acquired. For radiation dose reduction, the following was used: automated exposure control, adjustment of mA and/or kV according to patient size. COMPARISON: [facility], CT, ABDOMEN/PELVIS WITH CONTRAST, 07/29/2017, 21:28. FINDINGS: Image quality: Excellent. ABDOMEN: Lung bases: Lung bases are clear. Heart size is normal. Solid organs: Liver is normal in size and enhancement. Gallbladder is surgically absent. Biliary system is non dilated. Pancreas enhances normally. Spleen is normal in size and enhancement. No adrenal nodules. Kidneys demonstrate normal size and enhancement, without hydronephrosis. Peritoneum and bowel: Bowel loops demonstrate normal wall thickness and caliber. No free fluid or air. Sigmoid diverticulosis without evidence of diverticulitis. Large amount right colonic fecal debris. Normal appendix. Nodes and vessels: No retroperitoneal or mesenteric adenopathy by size criteria. Aorta and inferior vena cava are normal in size. Miscellaneous: No ventral hernias. PELVIS: Genitourinary: Bladder wall thickness is normal. Miscellaneous: No inguinal hernias or adenopathy. Remote hysterectomy. Bilateral ovarian cysts. Bones: No suspicious bony lesions. No vertebral body compression fractures. IMPRESSION: 1. No evidence of acute abdominal process. 2. Sigmoid diverticulosis. 3. Large right colonic fecal load. Dictated by: Francesco Bailey M.D. on 01/19/2021 at 14:08 Approved by: Francesco Bailey M.D. on 01/19/2021 at 14:21
[2021-01-19] MEDS: SUCRALFATE 1 GM/10 ML ORAL SUSP PO (15:59)
[2021-01-19] MEDS: MAG HYDROX/ALUMINUM/SIMETH SUS 20 ML, LIDOCAINE VISCOUS 2% 15 ML PO (16:00)
[2021-01-19] MEDS: MAGNESIUM CITRATE 300 ML SOLUTION PO (16:00)
== END 2021-01-19 17:00 | disposition home or self-care (01) ==
PROVIDERS: Emergency Provider Nurse Practitioner Family; PCP Family Medicine
DX: K59.00 Constipation, unspecified (principal); R10.84 Generalized abdominal pain; R07.9 Chest pain, unspecified
CPT/HCPCS: 36415; 74177; 80053; 81003; 82150; 82550; 83690; 83880; 84484; 85025; 85379; 85610; 85730; 93005; 96361; 96374; 99284; J2405; Q9967

== ENCOUNTER → 2021-02-05 15:48 | Outpatient (CLI) | payer OTHER, SELFPAY ==
--- NOTE | 2021-02-05 15:49 | DI.RAD.S_ITS ---
PROCEDURE: XR ACUTE ABDOMEN SERIES INDICATIONS: Constipation/Abdominal Pain x1 month TECHNIQUE: One view chest and two views of the abdomen were acquired. COMPARISON: [facility], CT, CT ABDOMEN PELVIS W CON, 01/19/2021, 14:33. FINDINGS: Surgical changes and devices: None. Chest: Lungs are clear. Heart size is normal. No pleural effusions. No pneumoperitoneum. Abdomen: Scattered small bowel and colonic gas. Prominent stool in the right colon. No suspicious calcifications. Visualized solid organ contours appear normal. Bones: No suspicious bony lesions. IMPRESSION: No acute cardiopulmonary abnormality. Nonobstructive bowel gas pattern. Prominent stool in the right colon. Dictated by: John Johnson M.D. on 02/05/2021 at 18:24 Approved by: John Johnson M.D. on 02/05/2021 at 18:27
== END ==
PROVIDERS: PCP Family Medicine; Referring Provider Family Medicine; Visit Provider Family Medicine
DX: K59.00 Constipation, unspecified (principal); R10.9 Unspecified abdominal pain
CPT/HCPCS: 74022

== ENCOUNTER → 2021-02-18 15:19 | Outpatient (CLI) | payer OTHER, SELFPAY ==
--- NOTE | 2021-02-18 15:20 | DI.CT.S_ITS ---
PROCEDURE: CT ABDOMEN PELVIS W CON INDICATIONS: Constipation/Abdominal Pain x1 month TECHNIQUE: After the administration of oral and intravenous contrast, 5 mm thick sections acquired from the diaphragms to the symphysis. 5 mm thick coronal and sagittal reformats were performed. For radiation dose reduction, the following was used: automated exposure control, adjustment of mA and/or kV according to patient size. COMPARISON: [facility], CT, CHEST/ABDOMEN WITH CONTRAST, 02/02/2017, 14:23. [facility], CT, CT ABDOMEN PELVIS W CON, 01/19/2021, 14:33. [facility], CT, ABDOMEN/PELVIS WITH CONTRAST, 07/29/2017, 21:28. FINDINGS: Image quality: Excellent. ABDOMEN: Lung bases: Lung bases are clear. Heart size is normal. Note is made of asymmetric retroareolar soft tissues at the right breast, more prominent than that on the left. This may represent normal anatomic variant but no prior mammographic imaging is noted in the comparison or available imaging from the past. A prior CT from 02/02/17 includes this area which is asymmetrically mildly more prominent on the right than the left, but not to the degree that is currently present. Solid organs: Liver is normal in size and enhancement. Gallbladder all is normal. Biliary system is non-dilated. Pancreas enhances normally. Spleen is normal in size and enhancement. No adrenal nodules. Kidneys are normal in size and enhancement, without hydronephrosis. Peritoneum and bowel: Stomach, small bowel, and colon loops are normal in caliber and wall thickness. No free fluid or air. [id number] colonic obstipation bilaterally. Nodes and vessels: No retroperitoneal or mesenteric adenopathy. Aorta and inferior vena cava are normal in caliber. Miscellaneous: No ventral hernias. PELVIS: Genitourinary: Bladder wall thickness is normal. Note is made of what appears to be several right ovarian cysts, but the ovaries not enlarged. Prior hysterectomy. Miscellaneous: No inguinal hernias or adenopathy. Bones: No suspicious bony lesions. No vertebral body compression fractures. IMPRESSION: 1. Note is made of asymmetric retroareolar breast tissue on the right, to the degree that correlation clinically and consideration of mammographic correlation is recommended. As noted above a prior CT scan from 2016 had shown a mild asymmetry, right greater than left, in retroareolar breast soft tissue but the current appearance is significantly more prominent in degree of asymmetry. No prior mammographic imaging is seen on the listing of comparison studies from the [facility] PACS system. 2. Generalized colonic obstipation, [id number]. Dictated by: Hans Jauregui M.D. on 02/19/2021 at 10:41 Approved by: Hans Jauregui M.D. on 02/19/2021 at 10:51
== END ==
PROVIDERS: PCP Family Medicine; Referring Provider Family Medicine; Visit Provider Family Medicine
DX: K59.00 Constipation, unspecified (principal); R10.9 Unspecified abdominal pain
CPT/HCPCS: 74177; Q9967

== ENCOUNTER → 2021-02-28 14:55 | Outpatient (CLI) | payer OTHER, SELFPAY ==
--- NOTE | 2021-02-28 | DI.US.S_ITS ---
LIMITED ULTRASOUND OF RIGHT BREAST: 02/28/2021 CLINICAL: Patient returns for additional imaging over a suspected mass in the right breast. Comparison is made to exams dated: 02/28/2021 mammogram - [facility] and 03/01/2014 mammogram - [facility]. Real-time ultrasound of the right breast retroareolar was performed. Khan scale images of the real-time examination were reviewed. No significant abnormalities were seen sonographically in the right breast. IMPRESSION: NEGATIVE There is no sonographic evidence of malignancy in the region of possible asymmetry. A 1 year screening mammogram is recommended. Exam findings were conveyed to the patient. This exam was interpreted at Station ID: [id number]. Electronically Signed By: John Johnson M.D. slc/:02/28/2021 16:22:27 letter sent: Normal Exam Ultrasound BI-RADS: 1 Negative
--- NOTE | 2021-02-28 | DI.MG.S_ITS ---
BILATERAL DIGITAL DIAGNOSTIC MAMMOGRAM 3D/2D: 02/28/2021 CLINICAL: Right asymmetric retroareolar tissue seen on CT done 02/18/21. Comparison is made to exam dated: 03/01/2014 mammogram - [facility]. The tissue of both breasts is heterogeneously dense. This may lower the sensitivity of mammography. There is an irregular focal asymmetry in the right breast central to the nipple in the retroareolar region. This is less prominent. Possible calcifications in the right breast at 1 o'clock in the retroareolar region. This is not seen in additional views. There is a possible 0.8 cm oval high density asymmetry in the left breast anterior depth lateral region seen on the craniocaudal view only. This is more prominent. No other significant masses or calcifications are seen in either breast. IMPRESSION: INCOMPLETE: NEEDS ADDITIONAL IMAGING EVALUATION The irregular focal asymmetry in the right breast central to the nipple in the retroareolar region is indeterminate. -A targeted ultrasound is recommended and will immediately follow. Possible 0.8 cm oval high density asymmetry in the left breast anterior depth lateral region seen on the craniocaudal view only resembles a cyst and is indeterminate. -A targeted ultrasound is recommended. This exam was interpreted at Station ID: [id number]. NOTE: For mammograms, a report in lay terms will be sent to the patient. Approximately 15% of breast malignancies will not be visualized mammographically. In the management of a palpable breast mass, a negative mammogram must not discourage biopsy of a clinically suspicious lesion. Electronically Signed By: John Johnson M.D. slc/:02/28/2021 16:17:32 ACR BI-RADS Category 0: Incomplete [id number]
== END ==
PROVIDERS: PCP Family Medicine; Referring Provider Family Medicine; Visit Provider Family Medicine
DX: R92.8 Other abnormal and inconclusive findings on diagnostic imaging of breast (principal); N64.89 Other specified disorders of breast
CPT/HCPCS: 76642; 77066; G0279

== ENCOUNTER → 2021-03-07 08:10 | Outpatient (CLI) | payer OTHER, SELFPAY ==
--- NOTE | 2021-03-07 08:11 | DI.US.S_ITS ---
LIMITED ULTRASOUND OF LEFT BREAST: 03/07/2021 CLINICAL: Patient returns today to evaluate a focal asymmetry in the left breast. Comparison is made to exams dated: 02/28/2021 mammogram - [facility], 03/01/2014 mammogram - [facility], and 02/13/2014 mammogram - [facility]. Real-time ultrasound of the left breast lower aspect was performed. Khan scale images of the real-time examination were reviewed. No significant abnormalities were seen sonographically in the left breast. Specifically, no finding to correspond to the patient's screening mammographic abnormality. IMPRESSION: PROBABLY BENIGN There is no sonographic correlate to the patient's screening mammography abnormality and no evidence of malignancy. A follow-up left mammogram in 6 months is recommended to demonstrate stability of the mammographic finding. Findings and recommendations were conveyed to the patient at time of exam. This exam was interpreted at Station ID: [id number]. Electronically Signed By: Evelin mauro/:03/07/2021 08:53:53 letter sent: Followup Recommended Ultrasound BI-RADS: 3 Probably benign
== END ==
PROVIDERS: PCP Family Medicine; Referring Provider Family Medicine; Visit Provider Family Medicine
DX: R92.8 Other abnormal and inconclusive findings on diagnostic imaging of breast (principal); N64.89 Other specified disorders of breast
CPT/HCPCS: 76642

== ENCOUNTER → 2021-09-15 07:53 | Outpatient (CLI) | payer OTHER, SELFPAY ==
[2021-09-15 09:05] LABS: Hematocrit 40.7 % (36-46); Hemoglobin 13.7 g/dL (12.0-16.0); Mean Corpuscular HGB Conc 33.7 % (30-36); Mean Corpuscular Hemoglobin 32.2 PG (26-34); Mean Corpuscular Volume 95.5 fL (80-100); Red Blood Cell Count 4.26 X10^6/uL (4.0-5.2); Red Cell Distribution Width 12.5 % (11.6-14.8); White Blood Cell Count 8.5 X10^3/uL (4.5-11.0)
[2021-09-15 09:21] LABS: Alanine Aminotransferase 16 IU/L (<35); Albumin 4.2 g/dL (3.5-5.0); Albumin Globulin Ratio 1.4 (1.0-2.8); Alkaline Phosphatase 46 U/L (38-126); Aspartate Aminotransferase 26 IU/L (14-36); BUN Creatinine Ratio 21.6 (6-22); Bilirubin Total 0.5 mg/dL (0.2-1.3); Blood Urea Nitrogen 16 mg/dL (7-17); Calcium 9.6 mg/dL (8.4-10.2); Carbon Dioxide 23 mmol/L (22-32); Chloride 104 mmol/L (98-107); Cholesterol 222 mg/dL (140-199); Estimated Glomerular Filt Rate > 60.0 mL/min (>60); Globulin 2.9 g/dL (1.7-4.1); Glucose 95 mg/dL (70-100); HDL Cholesterol 64 mg/dL (40-60); HEMOLYSIS 35 (0-50); LDL Cholesterol Calculated 124 mg/dL (<100); Potassium 4.5 mmol/L (3.4-5.1); Sodium 136 mmol/L (137-145); Total Protein 7.1 g/dL (6.3-8.2); Triglycerides 170 mg/dL (35-150)
[2021-09-15 09:22] LABS: Platelet Count 217 X10^3/uL (150-400)
[2021-09-15 09:50] LABS: TSH w/ Reflex to FT4 2.12 uIU/mL (0.47-4.68)
== END ==
PROVIDERS: PCP Family Medicine; Referring Provider Nurse Practitioner Family; Visit Provider Nurse Practitioner Family
DX: Z00.00 Encounter for general adult medical examination without abnormal findings (principal); E78.2 Mixed hyperlipidemia; R00.2 Palpitations
CPT/HCPCS: 36415; 80053; 80061; 84443; 85027

== ENCOUNTER → 2021-10-02 15:03 | Outpatient (CLI) | payer OTHER, SELFPAY ==
--- NOTE | 2021-10-28 16:58 | P.HOLT.S_ITS ---
Staff Midwife/Apprenticeship Director Report Referral & Results Date Patient Seen: 10/02/21 Requesting provider: Vicente Lindsay Indication: Palpitations Duration of monitoring (days): 7 Diary information: There are no patient events to review Data: Minimum heart rate identified was 55 beats per minute at 06:51 on 10/04/2021 Maximum sinus heart rate was 165 beats per minute at 16:14 on 10/09/2021 Maximum overall heart rate was 184 beats per minute at 10:33 on 10/05/2021 during a run of SVT Less than 1% of identified beats were ventricular or supraventricular ectopic in origin, which would classify them as rare. There was 1 run of SVT lasting 4 beats at a rate of 184 beats per minute Impression: Essentially normal 7 day cafeteria monitor with the exception 1 4 beat run of an accelerated supraventricular source
== END ==
PROVIDERS: PCP Family Medicine; Referring Provider Nurse Practitioner Family; Visit Provider Nurse Practitioner Family
DX: R00.2 Palpitations (principal)
CPT/HCPCS: 93242; 93244

== ENCOUNTER → 2021-10-31 14:05 | Outpatient (CLI) | payer OTHER, SELFPAY ==
--- NOTE | 2021-10-31 14:07 | DI.MG.S_ITS ---
UNILATERAL LEFT DIGITAL DIAGNOSTIC MAMMOGRAM 3D/2D SHORT-TERM FOLLOW-UP: 10/31/2021 CLINICAL: Short term follow up for the left breast. Comparison is made to exams dated: 03/07/2021 ultrasound, 02/28/2021 mammogram - [facility], and 03/01/2014 mammogram - [facility]. The tissue of left breast is heterogeneously dense. This may lower the sensitivity of mammography. The previously described possible 0.7 cm oval equal density asymmetry in the left breast anterior depth lateral region seen on the craniocaudal view only is not significantly changed and was not seen on the prior ultrasound. No other significant masses or calcifications are seen in the breast. IMPRESSION: PROBABLY BENIGN The possible 0.7 cm oval equal density asymmetry in the left breast is probably benign. A follow-up bilateral mammogram in 6 months is recommended to demonstrate stability. Findings and recommendations were conveyed to the patient during today's evaluation. This exam was interpreted at Station ID: [id number]. NOTE: For mammograms, a report in lay terms will be sent to the patient. Approximately 15% of breast malignancies will not be visualized mammographically. In the management of a palpable breast mass, a negative mammogram must not discourage biopsy of a clinically suspicious lesion. Electronically Signed By: Jose Huynh M.D. aty/:10/31/2021 14:41:33 letter sent: Followup Recommended ACR BI-RADS Category 3: Probably benign [id number]
== END ==
PROVIDERS: PCP Family Medicine; Referring Provider Family Medicine; Visit Provider Family Medicine
DX: R92.8 Other abnormal and inconclusive findings on diagnostic imaging of breast (principal)
CPT/HCPCS: 77065; G0279

== ENCOUNTER → 2022-01-20 15:57 | Outpatient (CLI) | payer OTHER, SELFPAY ==
--- NOTE | 2022-01-20 15:59 | DI.ECHO.S_ITS ---
[facility] +---------+ : : [address] [place] : : : : [id number] : : : : Phone: [phone]+ Echocardiogram Report + + :Name: BIJAL SANDOVAL Study Date: 01/20/2022 Height: 64 in : :[facility] ReadingLocation: Weight: 190 lb : : Gender: Female BSA: 1.9 m2 : :: 1975 Age: 46 yrs BP: 121/91 mmHg: :Reason For Study: PALPITATIONS : :Ordering Physician: [place], : :VICKY Performed By: Sheri iKdd : :Referring: VICKY HAYNES : + + Interpretation Summary The left ventricle is normal in size and wall thickness. The ejection fraction is estimated to be 60-65%. Diastolic parameters suggest probable normal left ventricular diastolic function and normal filling pressures. The right ventricle is normal in size and function. The right ventricular systolic pressure is estimated to be at least 22 mmHg based on an estimated right atrial pressure of 3 mm Hg. Mild mitral regurgitation. Mild tricuspid regurgitation. Procedure: A two-dimensional transthoracic echocardiogram with color flow and Doppler was performed. The study quality was technically adequate. There is no prior echocardiogram noted for this patient. The patient was in sinus rhythm with heart rates between 62-70 bpm during the exam. Left Ventricle: The left ventricle is normal in size and wall thickness. The ejection fraction is estimated to be 60-65%. Left ventricular wall motion is normal. Diastolic parameters suggest probable normal left ventricular diastolic function and normal filling pressures. Right Ventricle: The right ventricle is normal in size and function. Atria: The left atrial size is normal. Right atrial size is normal. There is no Doppler evidence for an interatrial shunt. Mitral Valve: The mitral valve is normal in structure and function. There is mild mitral regurgitation. Aortic Valve: The aortic valve opens well. The aortic valve is trileaflet. There is no aortic valve stenosis. No aortic regurgitation is present. Tricuspid Valve: The tricuspid valve is normal in structure and function. There is mild tricuspid regurgitation. The right ventricular systolic pressure is estimated to be at least 22 mmHg based on an estimated right atrial pressure of 3 mm Hg. Pulmonic Valve: The pulmonic valve is not well visualized. There is no pulmonic valvular regurgitation. Great Vessels: The aortic root is normal size. The dimensions of the ascending aorta are normal. The IVC is of normal diameter and collapses greater than 50% with a sniff. This suggests a low right atrial pressure of 3 mm Hg. Pericardium/ Pleura There is no pericardial effusion. There is no pleural effusion. MMode/2D Measurements & Calculations LVIDd: 5.2 cm LVOT diam: 2.1 cm LVIDs: 3.6 cm Ao root diam: 3.2 cm FS: 30.7 % asc Aorta Diam: 3.1 cm IVSd: 0.60 cm Ao Arch Diam (Prox Trans): 2.8 cm LVPWd: 0.60 cm LV moody. diameter/BSA (cm/m^2): 2.7 LV sys. diameter/BSA (cm/m^2): 1.9 LA A2 area: 19.4 cm2 RA long axis: 4.4 cm LA A4 area: 15.4 cm2 RA area: 12.2 cm2 LA length (vol): 4.9 cm RA vol: 28.9 ml LA vol: 51.4 ml RA : 15.1 ml/m2 LA vol index: 26.9 ml/m2 IVC diam: 1.0 cm RVD1 (basal): 3.5 cm TAPSE: 1.7 cm Doppler Measurements & Calculations Ao V2 max: 108.5 cm/sec LVOT Max Tayo: 76.8 cm/sec Ao V2 mean: 76.7 cm/sec LV V1 max P.4 mmHg Ao max P.7 mmHg LV V1 VTI: 16.2 cm Ao mean P.6 mmHg LIAT(I,D): 2.5 cm2 Ao V2 VTI: 22.8 cm LIAT(V,D): 2.5 cm2 sev ratio: 0.71 LIAT indexed to BSA (cm^2/m^2): 1.3 MV E max tayo: 69.7 cm/sec TR max tayo: 216.5 cm/sec MV A max tayo: 54.5 cm/sec TR max P.7 mmHg MV E/A: 1.3 PA V2 max: 64.0 cm/sec Med Peak E' Tyao: 8.1 cm/sec PA V2 mean: 46.5 cm/sec E/E' med: 8.6 PA mean P.96 mmHg Lat Peak E' Tayo: 10.1 cm/sec PA pr(Accel): 36.2 mmHg E/E' lat: 6.9 E/e' average: 7.7 MV dec time: 0.22 sec [facility] 57.7 ml Reading Physician:PM
== END ==
PROVIDERS: PCP Family Medicine; Referring Provider Nurse Practitioner Family; Visit Provider Nurse Practitioner Family
DX: I08.1 Rheumatic disorders of both mitral and tricuspid valves (principal); R00.2 Palpitations; Z82.49 Family history of ischemic heart disease and other diseases of the circulatory system
CPT/HCPCS: 93306

== ENCOUNTER → 2022-03-26 16:53 | Outpatient (CLI) | payer OTHER, SELFPAY ==
[2022-03-26 19:08] LABS: Appearance Urine UA CLEAR; Bilirubin Urine UA NEGATIVE (NEGATIVE); Color Urine UA YELLOW; Glucose Urine UA NEGATIVE (Negative); Ketones Urine UA NEGATIVE (NEGATIVE); Leukocyte Esterase Urine UA TRACE (NEGATIVE); Nitrite Urine UA NEGATIVE (Negative); Occult Blood Urine UA NEGATIVE (Negative); Protein Urine UA NEGATIVE (Negative); Specific Gravity Urine UA <=1.005 (1.000-1.035); Urobilinogen Urine UA 0.2 E.U./dL (0.2)
[2022-03-26 19:47] LABS: Bacteria Urine Moderate (10-30); Culture Indicated Urine Specimen Cultured; RBC Urine 0-1/HPF (0-5/HPF); Squamous Epithelial Cell Urine 5-10 /HPF (0-5/HPF); Transitional Epi Cells Urine 1-5/HPF (0-5/HPF); WBC Urine 1-5/HPF (0-5/HPF)
== END ==
PROVIDERS: PCP Family Medicine; Referring Provider Family Medicine; Visit Provider Family Medicine
DX: R31.9 Hematuria, unspecified (principal)
CPT/HCPCS: 81001; 87086

== ENCOUNTER → 2022-05-19 17:04 | Outpatient (CLI) | payer OTHER, SELFPAY ==
--- NOTE | 2022-05-19 17:06 | DI.US.S_ITS ---
PROCEDURE: US PELVIC COMPLETE INDICATIONS: Pelvic pain/irregular bleeding TECHNIQUE: Real-time scanning was performed of the pelvic organs, with image documentation. Additional endovaginal scanning was necessary due to incomplete visualization of the adnexal and endometrial structures by transabdominal scanning. COMPARISON: [facility], CT, CT ABDOMEN PELVIS W CON, 02/18/2021, 16:08. [facility], US, PELVIC COMPLETE, 09/22/2017, 14:57. FINDINGS: Uterus: Absent. Small calcification near the vaginal cuff. Ovaries: The right ovary measures 3.1 x 2.1 x 1.7 cm, with a calculated ovarian volume of 6 cc. The left ovary measures 4.8 x 3.4 x 2.5 cm, with a calculated ovarian volume of 21 cc. Blood flow seen in both ovaries. Less than 12 follicles can be seen in each ovary. Isoechoic structure in the left ovary measuring 2.8 cm. Mild heterogeneity. No internal vascularity is seen. Other: Trace free fluid in pelvic cul-de-sac. IMPRESSION: 1. Post hysterectomy. 2. Isoechoic structure in the left ovary measuring 2.8 cm. No internal vascularity is seen. This could represent a complex ovarian cyst, endometrioma, or normal ovarian tissue. Consider follow-up pelvic ultrasound in 6-12 weeks. 3. Trace free fluid in pelvic cul-de-sac. We strive to produce accurate, complete, and clear reports of imaging services. To assist us in improving patient care, this report was composed using standard report templates and voice recognition software. Therefore, it may contain abnormal punctuation, insertions and/or omissions. Occasional wrong-word or sound-alike substitutions may occur. Though we review the report and make efforts to correct it, we do recommend that the report be read carefully in proper context to recognize any text inaccuracies. Dictated by: John Johnson M.D. on 05/20/2022 at 10:32 Approved by: John Johnson M.D. on 05/20/2022 at 11:01
== END ==
PROVIDERS: PCP Family Medicine; Referring Provider Obstetrics & Gynecology; Visit Provider Obstetrics & Gynecology
DX: N93.9 Abnormal uterine and vaginal bleeding, unspecified (principal); R10.2 Pelvic and perineal pain
CPT/HCPCS: 76830; 76856

== ENCOUNTER → 2022-05-28 10:43 | Outpatient (CLI) | payer OTHER, SELFPAY ==
[2022-05-28 13:30] LABS: TSH w/ Reflex to FT4 0.96 uIU/mL (0.47-4.68)
[2022-05-28 13:31] LABS: Cancer Antigen 125 5.7 U/mL (0-35)
[2022-05-28 16:48] LABS: Follicle Stimulating Hormone 6.17 mIU/mL
== END ==
PROVIDERS: PCP Family Medicine; Referring Provider Obstetrics & Gynecology; Visit Provider Obstetrics & Gynecology
DX: R23.2 Flushing (principal); N83.299 Other ovarian cyst, unspecified side
CPT/HCPCS: 36415; 83001; 84443; 86304

== ENCOUNTER → 2022-07-10 15:58 | Outpatient (CLI) | payer OTHER, SELFPAY ==
[2022-07-10 16:27] LABS: COVID19 -Nasal RAPID Negative (Negative)
== END ==
PROVIDERS: PCP Family Medicine; Visit Provider Obstetrics & Gynecology
DX: Z20.822 Contact with and (suspected) exposure to COVID-19 (principal); Z01.812 Encounter for preprocedural laboratory examination
CPT/HCPCS: 87635

== ENCOUNTER 2022-07-13 08:38 | Day surgery (SDC) | payer OTHER, SELFPAY ==
[2022-07-03 12:31] VITALS: BMI 35.5
[2022-07-13] VITALS (8 sets, daily range): BP systolic 121–138; BP diastolic 72–89; PULSE 68–97; RESP 14–20; TEMP 36.8–36.9; O2SAT 96–99; BMI 35.5
--- NOTE | 2022-07-13 | PATH_ITS ---
[facility] Accession Number: [id number] . 01 Material submitted: . ovary - LEFT AND RIGHT OVARY . 01 Diagnosis: Left and Right Ovary, Bilateral Oophorectomy: Ovarian parenchyma with cystic follicles, cystic corpus luteum, and focal dystrophic calcification. No evidence of malignancy. MRV 07/15/2022 1200 Local . 01 Electronically signed: . Yuly hSanks MD, Pathologist NPI- [id number] . 01 Gross description: . Received in formalin labeled with the patient's name and left ovary and right ovary consists of two unoriented cerebriform ovaries. The first ovary weighs 11 grams and measures 4.3 x 2.9 x 1.7 cm. The second ovary weighs 7 grams and measures 4.1 x 2.5 x 1.6 cm. No cystic structures are identified on the ovarian surface. Sectioning the largest ovary reveals multiple smooth thin-walled cystic structures filled with hernandez serous fluid measuring up to 0.9 cm in greatest dimension. The possible normal parenchyma is hemorrhagic and distorted by the cystic structures. Sectioning the smaller ovary reveals multiple thin smooth-walled cystic structures filled with clear serous fluid measuring up to 0.9 cm in greatest dimension. The apparently normal ovarian parenchyma is physiologic and slightly distorted. [employer] sections of the ovary are submitted in A1 and A2. [employer] sections of the smaller ovary are submitted in A3 and A4. ([id number]) /MRV 07/14/2022 1544 Local . 01 Pathologist provided ICD-10: N83.209 . 01 CPT . 314355 Specimen Comment: A courtesy copy of this report has been sent to [facility] Performed at: 01 [facility] [address] [place] [address], [place], [place] [id number] MD Keven Abreu MD Phone: [phone]
[2022-07-13] MEDS: LACTATED RINGERS 1,000 ML 100 ML IV ×2 (09:56→13:51)
--- NOTE | 2022-07-13 10:30 | PM.PREOP ---
Pre-operative Note COVID-19 COVID-19 status: Negative Result date/Date tested (Pos, Neg/Pending): 07/10/22 Criteria for continued procedure: Continuing or worsening of significant or severe pain Interval Note History & Physical reviewed/Exam performed by Physician: Yes Changes to H&P: No
[2022-07-13] MEDS: ACETAMINOPHEN IV 1,000 MG/100 ML VIAL 400 MG IV (13:00)
--- NOTE | 2022-07-13 13:27 | SUR.OPER ---
Lithotomy on padded OR bed, head on pillow, arms secured on padded arm boards at <90 degrees abduction. Legs secured in padded yellow fins stirrups.
[2022-07-13] MEDS: BUPIVACAINE 0.5% W/ EPI (PF) 30 ML VIAL INJ (13:43)
--- NOTE | 2022-07-13 14:39 | P.OP_ITS ---
Operative Date/Time/Diagnoses Date of procedure: 07/13/22 Time of procedure: 13:30 Pre-op diagnosis: chronic pelvic pain, history of endometriosis, recurrent painful ovarian cysts, desires bilateral oophorectomy Post-op diagnosis: same Procedure & Clinicians Procedure: Laparoscopic bilateral oophorectomy, lysis of adhesions Same procedure as scheduled: Yes Indications: 47 yo female with a history of multiple laparoscopies And laparoscopic hysterectomy with bilateral salpingectomy, for the treatment of endometriosis and ovarian cysts, who has recurrent discomfort from ovarian cysts and chronic pelvic pain. Ovarian cysts, even the planned small ovulatory size have been causing her significant discomfort. Pelvic pain also persists when ovarian cysts resolve. She has failed treatment with suppression of the ovaries to help her discomfort. she requested bilateral oophorectomy for attempted definitive treatment of the cyclic discomfort from her ovaries and for the chronic pelvic pain. Option given for trial of Lupron to shut down the ovaries and to treat any possible endometriosis, as well as a trial to see if the ovar ies are causing her chronic pelvic pain. She is bothered by cyclic ovarian cyst as well and declines Lupron, request both ovaries be removed. Consented to treat any visible endometriosis and for possible lysis of adhesions. Surgeon: Jerica Miranda Wire Drawing Die Maker: Queenie Miller Anesthesia Type: General Operative Notes Findings: Normal appearing ovaries bilaterally. Adhesions from the left ovary to the sigmoid colon. There was no visible endometriosis. The upper abdomen appeared normal with a normal liver, and without any adhesions. Closure Type: primary Specimen(s): other (Bilateral ovaries sent as one specimen) Estimated Blood Loss (mL): 10 Blood products transfused: none Procedure in detail: After being properly identified she was transferred to the operating room. After an adequate level of general anesthesia was obtained she was placed in [facility] in the dorsal lithotomy position. She was prepped and draped in routine sterile fashion. Her bladder was sterilely drained with a rubber catheter for approximately 25 mL of clear urine. She had voided shortly prior to the procedure. A moist sponge stick was placed in the vagina, if needed to push up the vaginal vault. Attention was placed abdominally where after injection of local anesthesia, a small vertical infraumbilical incision was made through her prior incision. Her abdomen was elevated and the Veress needle was placed. With doing the drop test, there was not free flow of the NSS in to the abdomen and preperitoneal placement was suspected. The Veress needle was removed. The abdomen was again elevated and the Veress needle was again placed. Drop test was again performed and now appeared to confirm intraperitoneal placement. The CO2 gas was connected and opening pressure was low. The abdomen was then insufflated with CO2 gas. A 5 mm Visiport trocar was then placed under direct visualization without difficulty. The camera was then placed and intraperitoneal placement confirmed. Inferior to the trocar site was atraumatic. The lower abdomen and pelvis were free of any visible adhesions. The upper abdomen was inspected and Appeared normal. A normal liver was visible and there no adhesions noted in upper abdomen. Attention was placed back to the lower abdomen. Two 5 mm trocars were placed in her right and left lower abdomen through her prior port scars. The area of the prior small scars were injected with local anesthesia, small incisions were made and 5 mm blunt trocars were placed under direct visualization without difficulty. A blunt probe was placed. The patient was placed in Trendelenburg and the bowel was pushed out of the pelvis. Inspection of the ovaries revealed the above findings. There was no obvious endometriosis visible in the pelvis upon inspection of the cul-de-sac and lateral sidewalls. The ovaries appeared free of endometriosis. First attention was placed to the right ovary which was elevated. The Endo Seal device was then used to coagulate and cut the right infundibulopelvic ligament. The Endo Seal was sent used to continue across the peritoneal attachment of the ovary to the right lateral sidewall, keeping close to the ovary. the right ovary was then freed and placed in the pelvis. Attention was then placed to the left ovary which was noted to be somewhat smaller in size. Adhesions from the sigmoid to the ovary were noted. The ovary was grasped with a blunt grasper and elevated. The adhesions were noted to be to the mid to inferior ovary. Using a blunt probe, and the endo seal, some of the adhesions were lysed. An additional trocar was then placed at this time to be able to place some counter-traction on the adhesions to be able to further lyse the adhesions. An incision was made in the midline suprapubically after injection of local anesthesia, and a 12 mm trocar was placed under direct visualization. An additional atraumatic grasper was placed. The ovary was again elevated and he adhesions were grasped. Using the laparoscopic scissors the adhesions were lysed. the Endo Seal was then used to come across the left infundibulopelvic ligament and peritoneal attachment to the left pelvic sidewall. The ovary was then freed and placed in the cul-de-sac. The suction aerial installer was placed and suction irrigation performed. Inspection of the colon revealed it to be intact. Inspection the pelvic sidewall and the area the adhesions revealed good hemostasis. The right lateral sidewall was inspected and good hemostasis was noted at the IP pedicle and overall. At this time Dr. Miller left as the assist and Sami Gupta scrubbed in to finish as assist. An Endo-Catch bag was placed through the 12 mm trocar site. Both ovaries were placed in the Endo-Catch bag and the bag was cinched down under direct visualization. The endocatch bag with the ovaries was too large to bring through her incision and the fascia was incised bilaterally to extend the fascial incision. The Endo-Catch bag with the ovaries was then able to be pulled through the incision at this time and was handed off to send the ovaries as specimen . On attention back to the incision there was bleeding noted from the incision site. After wiping and using the suction aerial installer for suction, an area of bleeding was noted along her right muscles. A small vessel was grasped just inferior to the fascia and was coagulated. There was still some persistent bleeding which appeared to be superficially over the muscles. The muscle appeared intact in this area but was bleeding on the surface. Bovie was used and the area was coagulated with decrease in the bleeding, however some light persistent bleeding persisted. A [id number] suture of 3-0 chromic was placed through the superficial muscle in this area and hemostasis was obtained. The fascia was then closed with running continuous suture of 0 Vicryl. A 2x2 sponge was placed in the subcutaneous tissue for now, to return for later closure. The abdomen was then reinsufflated with CO2 gas and the camera was placed to re-inspect the pelvis. A small amount of serosanguineous fluid in the pelvis was suction. Repeat inspection of the pelvis and infundibulopelvic ligaments revealed hemostasis. Inspection of the anterior abdominal wall beneath the inferior trocar site, revealed hemostasis. The abdomen was partially desufflated and repeat inspection revealed continued hemostasis. The abdomen was then further desufflated and the trocars were removed. The skin incisions were then closed. Attention was placed to the suprapubic incision where the fascia had previously been closed. Inspection revealed hemostasis. The subcutaneous tissue was irrigated. The skin was closed with a subcuticular suture of 4-0 Monocryl. The other trocar sites were closed with interrupted subcuticular suture of 4-0 Monocryl. Steri-Strips and dressings were placed. The sponge stick was removed from the vagina. The procedure was ended. She tolerated the procedure well and went to the recovery room in stable condition. Complications: none Post-operative Condition: stable Disposition: PACU Plan for aftercare: Discharged from the PACU. Follow-up in the office and 7-10 days.
[2022-07-13] MEDS: OXYCODONE/ACETAMINOPHEN 5/325 TABLET 1 TAB PO (14:59)
[2022-07-13] MEDS: ONDANSETRON 4 MG/2 ML INJ IV (15:00)
[2022-07-13] MEDS: HYDROMORPHONE 2 MG INJ IV (15:10)
--- NOTE | 2022-07-13 15:38 | SUR.PHASEI ---
Pt A&Ox4, reports pain as tolerable, denies nausea, VSS, dressings c/d/i and ready to transition to phase 2. Report given to PETER Weaver using SBAR with time allowed for questions. Will transfer care now.
== END 2022-07-13 15:45 | disposition home or self-care (01) ==
PROVIDERS: PCP Family Medicine; Referring Provider Obstetrics & Gynecology; Visit Provider Obstetrics & Gynecology
PROC: (CPT 49320; principal; 2022-07-13 11:45)
DX: N83.10 Corpus luteum cyst of ovary, unspecified side (principal); N73.6 Female pelvic peritoneal adhesions (postinfective); R10.2 Pelvic and perineal pain; K21.9 Gastro-esophageal reflux disease without esophagitis; Z87.891 Personal history of nicotine dependence
CPT/HCPCS: 58661; 82962; J0131; J1100; J1170; J1885; J2250; J2405; J2704; J3010

== ENCOUNTER → 2022-07-14 11:57 | Outpatient (CLI) | payer OTHER, SELFPAY ==
--- NOTE | 2022-07-14 11:57 | DI.MG.S_ITS ---
BILATERAL DIGITAL DIAGNOSTIC MAMMOGRAM 3D/2D: 07/14/2022 CLINICAL: Short term follow up for the left breast. Comparison is made to exams dated: 10/31/2021 mammogram, 03/07/2021 ultrasound, 02/28/2021 ultrasound, and 02/28/2021 mammogram - [facility]. Both breasts are heterogeneously dense, which may obscure small masses (category c / 51-75% glandular tissue). There is a 0.6 cm oval equal density asymmetry in the left breast anterior depth lateral region seen on the craniocaudal view only. This is not seen in additional views. This is not significantly changed and was not seen on the prior ultrasound. No other significant masses, calcifications, or other findings are seen in either breast. IMPRESSION: PROBABLY BENIGN The 0.6 cm asymmetry in the left breast is stable, and probably benign. A follow-up left mammogram in 6 months is recommended to demonstrate continued stability. Findings and recommendations were conveyed to the patient at time of exam. Based on the Tyrer Cuzick model (a risk assessment model) the patient's lifetime risk is 8.9% and her 10 year risk is 1.6%. According to the ACR, ACS, and NCCN guidelines, an annual breast MRI exam along with mammogram is recommended if the patient's lifetime risk is 20% or greater. This exam was interpreted at Station ID: [id number]. NOTE: For mammograms, a report in lay terms will be sent to the patient. Approximately 15% of breast malignancies will not be visualized mammographically. In the management of a palpable breast mass, a negative mammogram must not discourage biopsy of a clinically suspicious lesion. Electronically Signed By: Evelin mauro/:07/14/2022 12:27:07 letter sent: Followup Recommended ACR BI-RADS Category 3: Probably benign 3343F
== END ==
PROVIDERS: PCP Family Medicine; Referring Provider Family Medicine; Visit Provider Family Medicine
DX: R92.8 Other abnormal and inconclusive findings on diagnostic imaging of breast (principal); N64.89 Other specified disorders of breast
CPT/HCPCS: 77066; G0279

== ENCOUNTER → 2023-01-13 08:43 | Outpatient (CLI) | payer OTHER, SELFPAY ==
--- NOTE | 2023-01-13 08:44 | DI.MG.S_ITS ---
BILATERAL DIGITAL DIAGNOSTIC MAMMOGRAM 3D/2D SHORT-TERM FOLLOW-UP: 01/13/2023 CLINICAL: Short term follow up of the left breast, due for bilateral imaging. Comparison is made to exams dated: 07/14/2022 mammogram, 10/31/2021 mammogram, and 02/28/2021 mammogram - [facility]. Both breasts are heterogeneously dense, which may obscure small masses (category c / 51-75% glandular tissue). There is a stable 0.6 cm oval equal density asymmetry in the left breast anterior depth lateral region seen on the craniocaudal view only. This was not seen on the prior ultrasound. No other significant masses, calcifications, or other findings are seen in either breast. IMPRESSION: BENIGN There is no mammographic evidence of malignancy. Left breast asymmetry demonstrates long-term stability and is benign. A 1 year screening mammogram is recommended. Based on the Tyrer Cuzick model (a risk assessment model) the patient's lifetime risk is 8.9% and her 10 year risk is 1.6%. According to the ACR, ACS, and NCCN guidelines, an annual breast MRI exam along with mammogram is recommended if the patient's lifetime risk is 20% or greater. This exam was interpreted at Station ID: [id number]. NOTE: For mammograms, a report in lay terms will be sent to the patient. Approximately 15% of breast malignancies will not be visualized mammographically. In the management of a palpable breast mass, a negative mammogram must not discourage biopsy of a clinically suspicious lesion. Electronically Signed By: John Johnson M.D. [facility] [place]/:01/13/2023 16:02:17 letter sent: Normal Exam ACR BI-RADS Category 2: Benign Finding(s) 3342F
== END ==
PROVIDERS: PCP Family Medicine; Referring Provider Family Medicine; Visit Provider Family Medicine
DX: R92.8 Other abnormal and inconclusive findings on diagnostic imaging of breast (principal); N64.89 Other specified disorders of breast
CPT/HCPCS: 77066; G0279

== ENCOUNTER → 2023-03-30 16:48 | Outpatient (CLI) | payer OTHER, SELFPAY ==
[2023-03-30 18:36] LABS: Alanine Aminotransferase 43 IU/L (<35); Albumin 4.3 g/dL (3.5-5.0); Albumin Globulin Ratio 1.2 (1.0-2.8); Alkaline Phosphatase 71 U/L (38-126); Aspartate Aminotransferase 46 IU/L (14-36); BUN Creatinine Ratio 25.4 (6-22); Bilirubin Total 0.4 mg/dL (0.2-1.3); Blood Urea Nitrogen 16 mg/dL (7-17); Calcium 9.6 mg/dL (8.4-10.2); Carbon Dioxide 28 mmol/L (22-32); Chloride 97 mmol/L (98-107); Estimated Glomerular Filt Rate > 60 mL/min (>60); Globulin 3.6 g/dL (1.7-4.1); Glucose 100 mg/dL (70-100); HEMOLYSIS 29 (0-50); Potassium 4.3 mmol/L (3.4-5.1); Sodium 135 mmol/L (137-145); Total Protein 7.9 g/dL (6.3-8.2)
[2023-03-30 19:05] LABS: TSH w/ Reflex to FT4 1.21 uIU/mL (0.47-4.68)
== END ==
PROVIDERS: PCP Family Medicine; Referring Provider Family Medicine; Visit Provider Family Medicine
DX: I10 Essential (primary) hypertension (principal); M25.471 Effusion, right ankle; M25.472 Effusion, left ankle; M25.474 Effusion, right foot; M25.475 Effusion, left foot
CPT/HCPCS: 36415; 80053; 84443

== ENCOUNTER → 2023-04-24 08:26 | Outpatient (CLI) | payer OTHER, SELFPAY ==
--- NOTE | 2023-04-24 08:28 | DI.CT.S_ITS ---
PROCEDURE: CT ABDOMEN W CON INDICATIONS: RUQ pain, edema TECHNIQUE: After the administration of intravenous contrast, axial sections were acquired from the lung bases to the iliac crests. Coronal and sagittal reformats were performed. For radiation dose reduction, the following was used: automated exposure control, adjustment of mA and/or kV according to patient size. COMPARISON: None. FINDINGS: Lower thorax: The lung bases are clear. Heart size normal. No hiatal hernia. Liver: The liver is diffusely decreased in attenuation without focal mass lesion. Biliary system: No calcified cholelithiasis or pericholecystic inflammation. No intra or extrahepatic bile duct dilatation. Pancreas: Unremarkable without mass or inflammation evident. Spleen: Normal in size and density. Adrenals: Normal morphology and density. Urinary system: Normal renal size and attenuation. No renal calculi, hydronephrosis, or solid mass present. Gastrointestinal system: In the left flank, there are 2 separate foci of small bowel-small bowel intussusception. The 1st measures 2.6 cm in length, and the 2nd measures 1.7 cm in length. No evidence of bowel obstruction. Peritoneal spaces: No mesenteric or retroperitoneal adenopathy. No free air. No free fluid. Vasculature: The IVC, aorta and iliac vasculature are unremarkable. Abdominal wall: Abdominal wall intact without evidence of ventral or inguinal hernias. Musculoskeletal: Normal bone mineralization. No acute fractures. IMPRESSION: 1. Left-sided multifocal small bowel intussusception without obstruction 2. Hepatic fatty infiltration Approved by: Juan M Shelby M.D. on 04/24/2023 at 10:21
== END ==
PROVIDERS: PCP Family Medicine; Referring Provider Family Medicine; Visit Provider Family Medicine
DX: K76.0 Fatty (change of) liver, not elsewhere classified (principal); R10.11 Right upper quadrant pain; K56.1 Intussusception; R60.9 Edema, unspecified
CPT/HCPCS: 74160; Q9967

== ENCOUNTER → 2023-08-16 08:08 | Outpatient (CLI) | payer OTHER, SELFPAY ==
--- NOTE | 2023-08-16 08:41 | DI.MRI.S_ITS ---
PROCEDURE: MR ABDOMEN WO/W CON INDICATIONS: Generalized abdominal pain TECHNIQUE: Coronal HASTE, axial 2D FLASH in- and [id number]; axial breath-hold T2 FSE. Dynamic axial VIBE during the administration of contrast; post-contrast coronal VIBE or 2D FLASH with fat saturation from the hepatic dome to the iliac crests. Restricted diffusion weighted imaging and ADC. COMPARISON: [facility], CT, CT ABDOMEN PELVIS W CON, 02/18/2021, 16:08. [facility], CT, CT ABDOMEN PELVIS WITH CONTRAST, 07/05/2023, 9:27. FINDINGS: Image quality: Excellent. Lung bases: No basal pleural effusions. Heart size is normal. Solid organs: Hepatic steatosis. No focal hepatic lesion. Gallbladder is unremarkable. No pericholecystic fluid. No gallstones seen. Biliary system is non dilated. Pancreas demonstrates fatty infiltration. Spleen is normal in size and enhancement. No adrenal nodules. Both kidneys demonstrate normal size and enhancement, without hydronephrosis. Nodes and vessels: No retroperitoneal or mesenteric adenopathy by size criteria. Aorta and inferior vena cava are normal in size. Bowel and peritoneum: Unenhanced bowel loops are normal in caliber. No free fluid. Bones and soft tissues: No ventral hernias. Bone marrow is normal in overall signal. IMPRESSION: 1. No mass. No adenopathy. No free fluid. 2. Hepatic steatosis. Fatty infiltration of the pancreas. Dictated by: John Johnson M.D. on 08/16/2023 at 10:19 Approved by: John Johnson M.D. on 08/16/2023 at 10:25
== END ==
PROVIDERS: PCP Family Medicine; Referring Provider Internal Medicine; Visit Provider Internal Medicine
DX: R10.84 Generalized abdominal pain (principal); K76.0 Fatty (change of) liver, not elsewhere classified; K86.9 Disease of pancreas, unspecified
CPT/HCPCS: 74183; A9579

== ENCOUNTER → 2023-08-17 08:18 | Outpatient (CLI) | payer OTHER, SELFPAY ==
--- NOTE | 2023-08-17 | DI.MRI.S_ITS ---
PROCEDURE: MR PELVIS WO/W CON INDICATIONS: Generalized abdominal pain TECHNIQUE: Coronal HASTE, sagittal breath-hold T2 FSE; axial T1 FSE with and without fat saturation through the pelvis. Optional long- and short-axis uterine nonbreath-hold T2 FSE through the uterus. Sagittal or axial dynamic VIBE during administration of contrast. Post-contrast axial or coronal VIBE/2-D FLASH with fat saturation from the iliac crests to the symphysis. Optional diffusion weighted imaging and ADC may be performed. COMPARISON: None. FINDINGS: Image quality: Excellent. Uterus: Uterus is absent. Adnexa: Both ovaries are normal in size, without suspicious cystic or solid lesions. Urinary system: Bladder wall is normal in thickness. Distal ureters are non distended. Urethra appears normal in morphology. Nodes and vessels: No pelvic or inguinal adenopathy by size criteria. Iliac vessels are normal in size. Bowel and peritoneum: Close association of the sigmoid colon with the vaginal cuff, with lack fat plane present (series 3, image 25). Colonic diverticulosis without evidence of diverticulitis. Soft tissues: No inguinal hernias. No findings of pelvic floor incompetence in the absence of provocation. Bones: Marrow demonstrates normal overall signal. IMPRESSION: Close association of the sigmoid colon with the vaginal cuff, with lack of fat plane. Findings could represent a potential fistula or more likely adhesions from prior hysterectomy. Colonic diverticulosis without evidence of diverticulitis. Dictated by: Joel Montemayor M.D. on 08/17/2023 at 10:58 Approved by: Joel Montemayor M.D. on 08/17/2023 at 11:06
== END ==
PROVIDERS: PCP Family Medicine; Referring Provider Internal Medicine; Visit Provider Internal Medicine
DX: R10.84 Generalized abdominal pain (principal); K57.90 Diverticulosis of intestine, part unspecified, without perforation or abscess without bleeding
CPT/HCPCS: 72197

== ENCOUNTER → 2023-09-08 13:47 | Outpatient (CLI) | payer OTHER, SELFPAY ==
[2023-09-09 13:20] LABS: Candida species Negative (Negative); Gardnerella vaginalis Negative (Negative); Trichomoas vaginalis Negative (Negative)
== END ==
PROVIDERS: PCP Family Medicine; Visit Provider Obstetrics & Gynecology
DX: N89.8 Other specified noninflammatory disorders of vagina (principal)
CPT/HCPCS: 87480; 87510; 87660

== ENCOUNTER → 2023-10-13 06:57 | Outpatient (CLI) | payer OTHER, SELFPAY ==
[2023-10-13 07:59] LABS: Add Manual Diff / Slide Review NO; Basophils Absolute Auto 100 /uL (0-100); Basophils Percent Auto 0.8 % (0-2); Eosinophils Absolute Auto 100 /uL (0-450); Eosinophils Percent Auto 1.7 % (2-4); Hematocrit 40.1 % (36-46); Hemoglobin 13.6 g/dL (12.0-16.0); Lymphocytes Absolute Auto 2300 /uL (1100-4500); Lymphocytes Percent Auto 35.3 % (25-40); Mean Corpuscular Hemoglobin 31.1 PG (26-34); Mean Corpuscular Volume 91.5 fL (80-100); Monocytes Absolute Auto 400 /uL (0-900); Monocytes Percent Auto 5.9 % (3-14); Neutrophils Absolute Auto 3700 /uL (1500-7000); Neutrophils Percent Auto 56.3 % (50-75); Platelet Count 253 X10^3/uL (150-400); Red Blood Cell Count 4.38 X10^6/uL (4.0-5.2); Red Cell Distribution Width 12.8 % (11.6-14.8); White Blood Cell Count 6.6 X10^3/uL (4.5-11.0)
[2023-10-13 08:27] LABS: Alanine Aminotransferase 72 IU/L (<35); Albumin 4.2 g/dL (3.5-5.0); Albumin Globulin Ratio 1.3 (1.0-2.8); Alkaline Phosphatase 58 U/L (38-126); Aspartate Aminotransferase 63 IU/L (14-36); BUN Creatinine Ratio 25.7 (6-22); Bilirubin Total 0.6 mg/dL (0.2-1.3); Blood Urea Nitrogen 18 mg/dL (7-17); Calcium 10.1 mg/dL (8.4-10.2); Carbon Dioxide 28 mmol/L (22-32); Chloride 101 mmol/L (98-107); Cholesterol 248 mg/dL (140-199); Estimated Glomerular Filt Rate > 60 mL/min (>60); Globulin 3.2 g/dL (1.7-4.1); Glucose 108 mg/dL (70-100); HDL Cholesterol 53 mg/dL (40-60); HEMOLYSIS < 15 (0-50); LDL Cholesterol Calculated 161 mg/dL (<100); Potassium 4.9 mmol/L (3.4-5.1); Sodium 137 mmol/L (137-145); Total Protein 7.4 g/dL (6.3-8.2); Triglycerides 171 mg/dL (35-150)
[2023-10-13 09:06] LABS: TSH w/ Reflex to FT4 0.99 uIU/mL (0.47-4.68)
== END ==
PROVIDERS: PCP Family Medicine; Referring Provider Family Medicine; Visit Provider Family Medicine
DX: E66.9 Obesity, unspecified (principal); Z83.3 Family history of diabetes mellitus; F41.8 Other specified anxiety disorders; I10 Essential (primary) hypertension
CPT/HCPCS: 36415; 80053; 80061; 83036; 84443; 85025

== ENCOUNTER 2023-12-30 10:26 | Emergency (ER) | payer OTHER, SELFPAY ==
[2023-12-30] VITALS (10 sets, daily range): BP systolic 103–125; BP diastolic 64–82; PULSE 36–97; RESP 15–25; TEMP 36.2; O2SAT 94–100; BMI 38.6
[2023-12-30 11:16] LABS: Add Manual Diff / Slide Review NO; Basophils Absolute Auto 100 /uL (0-100); Basophils Percent Auto 0.7 % (0-2); Eosinophils Absolute Auto 100 /uL (0-450); Hematocrit 46.8 % (36-46); Hemoglobin 16.2 g/dL (12.0-16.0); INR 0.9 (0.9-1.3); Lymphocytes Absolute Auto 1600 /uL (1100-4500); Lymphocytes Percent Auto 17.1 % (25-40); Mean Corpuscular HGB Conc 34.5 % (30-36); Mean Corpuscular Hemoglobin 31.1 PG (26-34); Mean Corpuscular Volume 90.2 fL (80-100); Monocytes Absolute Auto 400 /uL (0-900); Monocytes Percent Auto 4.5 % (3-14); Neutrophils Absolute Auto 7300 /uL (1500-7000); Neutrophils Percent Auto 76.7 % (50-75); Platelet Count 266 X10^3/uL (150-400); Prothrombin Time 10.1 SECONDS (9.4-12.5); Red Blood Cell Count 5.19 X10^6/uL (4.0-5.2); Red Cell Distribution Width 13.2 % (11.6-14.8); White Blood Cell Count 9.5 X10^3/uL (4.5-11.0)
[2023-12-30 11:19] LABS: PTT Partial Thromboplastin Tim 36 SECONDS (25.1-36.5)
[2023-12-30 11:22] LABS: Alanine Aminotransferase 91 IU/L (<35); Albumin 4.6 g/dL (3.5-5.0); Albumin Globulin Ratio 1.2 (1.0-2.8); Alkaline Phosphatase 66 U/L (38-126); Aspartate Aminotransferase 61 IU/L (14-36); BUN Creatinine Ratio 20.8 (6-22); Bilirubin Total 0.9 mg/dL (0.2-1.3); Blood Urea Nitrogen 16 mg/dL (7-17); Calcium 9.9 mg/dL (8.4-10.2); Carbon Dioxide 23 mmol/L (22-32); Chloride 102 mmol/L (98-107); Estimated Glomerular Filt Rate > 60 mL/min (>60); Globulin 3.8 g/dL (1.7-4.1); Glucose 103 mg/dL (70-100); HEMOLYSIS < 15 (0-50); Potassium 4.3 mmol/L (3.4-5.1); Sodium 138 mmol/L (137-145); Total Protein 8.4 g/dL (6.3-8.2)
[2023-12-30] MEDS: PANTOPRAZOLE 40 MG VIAL 80 MG IV (11:27)
[2023-12-30] MEDS: ONDANSETRON 4 MG/2 ML INJ IV ×2 (11:27→14:11)
--- NOTE | 2023-12-30 11:37 | DI.CT.S_ITS ---
PROCEDURE: CT ANGIO ABD/PEL GI BLEED INDICATIONS: IV contrast only/left lower quadrant pain/GI bleed TECHNIQUE: After the administration of intravenous contrast, 2.5 mm thick sections acquired from the diaphragm to the symphysis. 10 mm maximum-intensity projection (MIP) reformats were then acquired. For radiation dose reduction, the following was used: automated exposure control. COMPARISON: None. FINDINGS: Image Quality: Diagnostic. Abdominal aorta: No aortic aneurysm or evidence of acute aortic syndrome. Mesenteric arteries: Patent without hemodynamically significant stenosis. Renal arteries: Patent without hemodynamically significant stenosis. There is no contrast extravasation within the stomach, small bowel or colon on the arterial phase post-contrast images. No findings to suggest active arterial extravasation at this time. OTHER: Lower Chest: No significant findings. There is a small hiatal hernia. Liver: The liver is enlarged and markedly hypodense. Gallbladder: No radiopaque gallstones or wall thickening. Biliary ducts: No biliary dilation. Pancreas: There is marked fatty atrophy of the pancreas. Spleen: Size is within normal limits. Adrenal Glands: No adrenal nodules. Kidneys and Ureters: No hydronephrosis. No solid mass. No complex renal cystic lesion which requires follow up. Stomach and Bowel: There are scattered sigmoid diverticular outpouchings. Mild pericolonic fat stranding and mild circumferential wall thickening is present within the distal half of the transverse colon, the descending colon, and the proximal sigmoid colon. The appendix is thin walled and gas filled. Peritoneum: There is trace pelvic free fluid which is likely physiologic in a premenopausal female. No free air. Ventral Wall: No hernia. Abdominal Nodes: No retroperitoneal or mesenteric adenopathy by size criteria. Vessels: Aorta and inferior vena cava are normal in size. PELVIS: Pelvic Organs: Unremarkable. Bladder: Unremarkable. Pelvic Nodes: No enlarged lymph nodes. Miscellaneous: No inguinal hernias are seen. Bones: No aggressive osseous abnormality. IMPRESSION: 1. No active extravasation visualized on the arterial phase study. 2. Diverticulosis. Pericolonic fat stranding and wall thickening raise the suspicion for acute non perforated diverticulitis versus acute colitis. Colitis is favored given the extent of the fat stranding and wall thickening and the limited diverticulosis. 3. Normal appendix. 4. Marked hepatic steatosis. 5. Fatty atrophy of the pancreas, much greater than expected for patient age. Dictated by: Suellen Boss M.D. on 12/30/2023 at 12:34 Approved by: Suellen Boss M.D. on 12/30/2023 at 12:42
--- NOTE | 2023-12-30 11:40 | ED.GIBLEED ---
HPI - GI Bleed General Chief complaint: GI Bleed Stated complaint: blood in bm Time Seen by Provider: 12/30/23 11:27 Source: patient Mode of arrival: Ambulatory History of Present Illness HPI Narrative: patient here with . Complains left lower quadrant pain and bright red blood per rectum since this morning6:00 a.m.. Has had bright red blood each hour since this morning. Family history of gastric cancer as well as colon cancer. Patient had colonoscopy and EGD September 2023. Polyps were noted. patient and state pockets were noted in the colon but no definitive diagnosis of diverticulosis. Patient is not on any blood thinners. History of total hysterectomy. Vital signs at this time are reassuring. No dizziness no syncope. Related Data Home Medications Medication Instructions Recorded Confirmed naproxen 500 mg tablet 500 mg PO Q12H PRN Pain 06/13/20 10/11/23 amitriptyline 10 mg tablet 10 mg PO BEDTIME 12/23/20 10/11/23 galcanezumab-gnlm 120 mg/mL 120 mg SUBCUT QMONTH 07/07/22 10/11/23 subcutaneous pen injector (Emgality Pen) Previous Rx's Medication Instructions Recorded epinephrine 0.3 mg/0.3 mL 0.3 mg (0.3 mL) IM SEE 02/04/23 injection, auto-injector (EpiPen INSTRUCTIONS #1 ea 2-Reji) estradiol 0.5 mg tablet 0.25 mg (1/2 x 0.5 mg) PO DAILY 04/14/23 #90 tabs lorazepam 0.5 mg tablet 0.5 mg PO BID PRN anxiety #14 tabs 04/30/23 omeprazole 20 mg capsule,delayed 20 mg PO QDAY #90 caps 07/30/23 release estradiol 10 mcg vaginal tablet 10 mcg vaginal 2XW #24 tabs 09/08/23 (Yuvafem) lisinopril 10 mg tablet 10 mg PO DAILY #30 tabs 09/16/23 tirzepatide 2.5 mg/0.5 mL 2.5 mg (0.5 mL) SUBCUT QWEEK 4 11/17/23 subcutaneous pen injector weeks #2 mL blood sugar diagnostic #100 ea 12/08/23 blood-glucose meter (Blood Glucose #1 ea 12/08/23 Monitoring kit) lancets 30 gauge #100 ea 12/08/23 ciprofloxacin HCl 500 mg tablet 500 mg PO BID #14 tabs 12/30/23 (Cipro) metronidazole 500 mg tablet 500 mg PO TID #21 tabs 12/30/23 ondansetron 4 mg disintegrating 4 mg PO Q8H PRN nausea and 12/30/23 tablet vomiting #20 tabs oxycodone-acetaminophen 5 mg-325 1 tab PO Q4-6H PRN pain #20 tabs 12/30/23 mg tablet (Percocet) Allergies Allergy/AdvReac Type Severity Reaction Status Date / Time bee venom protein (honey bee) Allergy Severe anaphylaxis Verified 12/30/23 10:29 [BEE VENOM PROTEIN (HONEY BEE)] lovastatin AdvReac Mild myalgia Verified 12/30/23 10:29 Mosquito Allergy Severe Swelling Uncoded 10/11/23 15:54 and turns purple Review of Systems Review of Systems Narrative: GENERAL: negative chills, fatigue, malaise, fever, sweats. HEENT: negative sinus pain, ear pain, sore throat RESPIRATORY: negative dyspnea, cough CARDIOVASCULAR: negative chest pain, palpitations GASTROINTESTINAL: Positive nausea, positive rectal bleeding positive abdominal pain : negative dysuria, frequency, hematuria MUSCULOSKELETAL: negative muscle or bony pain SKIN: negative rash, skin lesions NEUROLOGIC: negative weakness, numbness negative dizziness ROS Unobtainable: All systems reviewed & are unremarkable except as noted in HPI and below Patient History Medical History Pre-diabetes Obesity (BMI 30-39.9) Obesity (BMI 30.0-34.9) Family history of diabetes mellitus Situational anxiety Intussusception of small bowel Leg edema Hypertension De Quervain's tenosynovitis Migraine headache Abnormal mammogram Ovarian cyst, complex Vaginal bleeding Breast nodule Family history of ischemic heart disease Intermittent palpitations (2015) COVID-19 (~11/23/20) Recurrent sinusitis (2011) Foot pain (2010) Ovarian cyst (1996) Infertility (1996) Endometriosis (1996) GERD (gastroesophageal reflux disease) (2012) Urinary incontinence (2004) IBS (irritable bowel syndrome) (2012) Abnormal Pap smear of cervix (1996) Fibroids (1996) History of heavy periods (1996) Irregular periods/menstrual cycles (1996) Painful menstrual periods (1996) Chronic headaches (1999) Surgical History History of total abdominal hysterectomy and bilateral salpingo-oophorectomy S/P bilateral oophorectomy (~07/13/22) Anesthesia Status post left foot surgery (2010) Status post left foot surgery (2011) History of removal of cyst (2003) History of bilateral salpingectomy (03/20/16) Status post laparoscopy (12/10/17) Status post laparoscopy (03/20/16) Status post hysterectomy (06/2009) Status post laparoscopy (2007) Status post laparoscopy (2004) Status post laparoscopy (1998) Status post laparoscopy (1997) Family History Brother Age: 49 High cholesterol Hiatal hernia Schatzki's ring Father Age: 73 Diabetes mellitus High cholesterol Grandfather Heart disease Heart attack Mother Age: 67 Essential hypertension Grandmother Perforated intestine Grandfather Colon cancer Grandmother Diabetes mellitus Social History household members: spouse Smoking Status: Former smoker Tobacco: How many years used: 2 alcohol intake: current substance use type: does not use Smoking Status: Former smoker alcohol intake frequency: holidays/special occasions only Substance Use Type: marijuana Exam Narrative Exam Narrative: GENERAL: in no distress, not toxic not dyspneic HEAD: Normocephalic. EYES: Pupils equal round , pink conjunctiva ENT: Mucous membranes moist. NECK: Trachea midline. CARDIOVASCULAR: Regular rate and rhythm RESPIRATORY: Clear to auscultation. Breath sounds equal bilaterally. No wheezes, rales, or rhonchi. GASTROINTESTINAL: Abdomen soft, Reproducible left lower quadrant tenderness. Bowel sounds are present. No peritoneal signs. No pain out of proportion to exam. No CVA tenderness EXTREMITIES: No gross deformities. BACK: No flank tenderness. NEURO: AOx4. SKIN: Warm and dry PSYCH: Not anxious, is cooperative Initial Vital Signs Initial Vital Signs: Vital Signs Temperature 97.1 F L 12/30/23 10:29 Pulse Rate 92 H 12/30/23 10:29 Respiratory Rate 15 12/30/23 10:29 Blood Pressure 115/82 12/30/23 10:29 Pulse Oximetry 100 12/30/23 10:29 Oxygen Delivery Method Room Air 12/30/23 10:29 Course Orders Ordered: Discontinued Medications Ciprofloxacin (Ciprofloxacin 250 Mg Tablet) 500 mg PO NOW ONE Stop: 12/30/23 13:52 Last Admin: 12/30/23 14:11 Dose: 500 mg Documented By: OTONIEL Metronidazole (Metronidazole 500 Mg Tablet) 500 mg PO NOW ONE Stop: 12/30/23 13:52 Last Admin: 12/30/23 14:11 Dose: 500 mg Documented By: OTONIEL Morphine Sulfate (Morphine 4 Mg/Ml Inj) 4 mg IV NOW ONE Stop: 12/30/23 11:38 Last Admin: 12/30/23 11:46 Dose: 4 mg Documented By: BLANCA Morphine Sulfate (Morphine 4 Mg/Ml Inj) 4 mg IV NOW ONE Stop: 12/30/23 13:51 Last Admin: 12/30/23 14:11 Dose: 4 mg Documented By: OTONIEL Ondansetron HCl (Ondansetron 4 Mg/2 Ml Inj) 4 mg IV NOW PRN PRN Reason: Nausea And Vomiting Last Admin: 12/30/23 11:27 Dose: 4 mg Documented By: BLANCA Ondansetron HCl (Ondansetron 4 Mg/2 Ml Inj) 4 mg IV NOW ONE Stop: 12/30/23 13:51 Last Admin: 12/30/23 14:11 Dose: 4 mg Documented By: OTONIEL Pantoprazole Sodium (Pantoprazole 40 Mg Vial) 80 mg IV NOW ONE Stop: 12/30/23 10:33 Last Admin: 12/30/23 11:27 Dose: 80 mg Documented By: BLANCA Vital Signs Vital signs: Vital Signs - 8 hr 12/30/23 10:29 12/30/23 11:15 12/30/23 11:18 Temperature 97.1 F L Pulse Rate 92 H 36 L 97 H Respiratory Rate 15 Blood Pressure 115/82 Pulse Oximetry 100 100 98 Oxygen Delivery Method Room Air 12/30/23 11:18 12/30/23 11:30 12/30/23 11:30 Temperature Pulse Rate 92 H Respiratory Rate 25 H Blood Pressure 125/81 115/75 Pulse Oximetry 97 Oxygen Delivery Method Room Air 12/30/23 12:07 12/30/23 12:08 12/30/23 12:08 Temperature Pulse Rate 84 82 Respiratory Rate 21 15 Blood Pressure 103/69 Pulse Oximetry 94 96 Oxygen Delivery Method 12/30/23 12:30 12/30/23 12:30 12/30/23 13:00 Temperature Pulse Rate 83 75 Respiratory Rate 22 19 Blood Pressure 108/70 Pulse Oximetry 98 97 Oxygen Delivery Method 12/30/23 13:00 12/30/23 13:30 12/30/23 13:30 Temperature Pulse Rate 76 Respiratory Rate 15 Blood Pressure 110/70 110/67 Pulse Oximetry 97 Oxygen Delivery Method MDM - GI Bleed Lab Data 12/30/23 10:38 12/30/23 10:38 Labs: Lab Results 12/30/23 12/30/23 Range/Units 10:38 10:45 WBC 9.5 (4.5-11.0) X10^3/uL RBC 5.19 (4.0-5.2) X10^6/uL Hgb 16.2 H (12.0-16.0) g/dL Hct 46.8 H (36-46) % MCV 90.2 (80-100) fL MCH 31.1 (26-34) PG MCHC 34.5 (30-36) % RDW 13.2 (11.6-14.8) % Plt Count 266 (150-400) X10^3/uL Neut % (Auto) 76.7 H (50-75) % Lymph % (Auto) 17.1 L (25-40) % [place] % (Auto) 4.5 (3-14) % Eos % (Auto) 1.0 L (2-4) % Baso % (Auto) 0.7 (0-2) % Neut # (Auto) 7300 H (0263-9331) /uL Lymph # (Auto) 1600 (5165-7421) /uL [place] # (Auto) 400 (0-900) /uL Eos # (Auto) 100 (0-450) /uL Baso # (Auto) 100 (0-100) /uL PT 10.1 (9.4-12.5) SECONDS INR 0.9 (0.9-1.3) APTT 36 (25.1-36.5) SECONDS Sodium 138 (137-145) mmol/L Potassium 4.3 (3.4-5.1) mmol/L Chloride 102 (98-107) mmol/L Carbon Dioxide 23 (22-32) mmol/L BUN 16 (7-17) mg/dL Creatinine 0.77 (0.52-1.04) mg/dL Estimated GFR > 60 (>60) mL/min BUN/Creatinine Ratio 20.8 (6-22) Glucose 103 H (70-100) mg/dL Calcium 9.9 (8.4-10.2) mg/dL Total Bilirubin 0.9 (0.2-1.3) mg/dL AST 61 H (14-36) IU/L ALT 91 H (<35) IU/L Alkaline Phosphatase 66 (38-126) U/L Total Protein 8.4 H (6.3-8.2) g/dL Albumin 4.6 (3.5-5.0) g/dL Globulin 3.8 (1.7-4.1) g/dL Albumin/Globulin Ratio 1.2 (1.0-2.8) Urine Color Yellow Urine Appearance Sl cloudy Urine pH 5.5 (4.5-8.0) Ur Specific [place] 1.015 (1.000-1.035) Urine Protein Negative (Negative) Urine Glucose (UA) Negative (Negative) g/dL Urine Ketones Negative (NEGATIVE) Urine Occult Blood Negative (Negative) Urine Nitrate Negative (Negative) Urine Bilirubin Negative (NEGATIVE) Urine Urobilinogen 0.2 (0.2) E.U./dL Ur Leukocyte Esterase Negative (NEGATIVE) Urine RBC None seen (0-5/HPF) Urine WBC 0-1/hpf (0-5/HPF) Ur Squamous Epith Cells 5-10 /hpf H (0-5/HPF) Urine Bacteria Many (>30) H (None) Ur Culture Indicated? Cult not indicated Vol Urine Centrifuged 10ml (spun) Blood Type O Positive Antibody Screen Negative Imaging Data CT scan - abdomen/pelvis: Radiologist's Impression: [address] [address] [address] Scan Report Signed Patient: Carmelita Olivares MR#: [id number] : 1975 Acct:[id number] Age/Sex: 48 / F Date of Service: 12/30/23 Loc: ED Accession Number: [id number] Procedure: CT angio Abd/Pel GI Bleed Ordering Provider: Bairon Hdz MD PROCEDURE: CT ANGIO ABD/PEL GI BLEED INDICATIONS: IV contrast only/left lower quadrant pain/GI bleed TECHNIQUE: After the administration of intravenous contrast, 2.5 mm thick sections acquired from the diaphragm to the symphysis. 10 mm maximum-intensity projection (MIP) reformats were then acquired. For radiation dose reduction, the following was used: automated exposure control. COMPARISON: None. FINDINGS: Image Quality: Diagnostic. Abdominal aorta: No aortic aneurysm or evidence of acute aortic syndrome. Mesenteric arteries: Patent without hemodynamically significant stenosis. Renal arteries: Patent without hemodynamically significant stenosis. There is no contrast extravasation within the stomach, small bowel or colon on the arterial phase post-contrast images. No findings to suggest active arterial extravasation at this time. OTHER: Lower Chest: No significant findings. There is a small hiatal hernia. Liver: The liver is enlarged and markedly hypodense. Gallbladder: No radiopaque gallstones or wall thickening. Biliary ducts: No biliary dilation. Pancreas: There is marked fatty atrophy of the pancreas. Spleen: Size is within normal limits. Adrenal Glands: No adrenal nodules. Kidneys and Ureters: No hydronephrosis. No solid mass. No complex renal cystic lesion which requires follow up. Stomach and Bowel: There are scattered sigmoid diverticular outpouchings. Mild pericolonic fat stranding and mild circumferential wall thickening is present within the distal half of the transverse colon, the descending colon, and the proximal sigmoid colon. The appendix is thin walled and gas filled. Peritoneum: There is trace pelvic free fluid which is likely physiologic in a premenopausal female. No free air. Ventral Wall: No hernia. Abdominal Nodes: No retroperitoneal or mesenteric adenopathy by size criteria. Vessels: Aorta and inferior vena cava are normal in size. PELVIS: Pelvic Organs: Unremarkable. Bladder: Unremarkable. Pelvic Nodes: No enlarged lymph nodes. Miscellaneous: No inguinal hernias are seen. Bones: No aggressive osseous abnormality. IMPRESSION: 1. No active extravasation visualized on the arterial phase study. 2. Diverticulosis. Pericolonic fat stranding and wall thickening raise the suspicion for acute non perforated diverticulitis versus acute colitis. Colitis is favored given the extent of the fat stranding and wall thickening and the limited diverticulosis. 3. Normal appendix. 4. Marked hepatic steatosis. 5. Fatty atrophy of the pancreas, much greater than expected for patient age. Dictated by: Suellen Boss M.D. on 12/30/2023 at 12:34 Approved by: Suellen Boss M.D. on 12/30/2023 at 12:42 MDM Narrative Medical decision making narrative: patient here with . Complains left lower quadrant pain and bright red blood per rectum since this morning6:00 a.m.. Has had bright red blood each hour since this morning. Family history of gastric cancer as well as colon cancer. Patient had colonoscopy and EGD September 2023. Polyps were noted. patient and state pockets were noted in the colon but no definitive diagnosis of diverticulosis. Patient is not on any blood thinners. History of total hysterectomy. Vital signs at this time are reassuring. No dizziness no syncope. After history and examCBC CMP morphine Zofran normal saline Protonix CT abdomen pelvis MDM CC: left lower quadrant pain/rectal bleeding Complicating co-morbidities: family history of GI cancer, history of hemorrhoids, history acid reflux Data collected from: patient and Medical records reviewed: no recent visit here for this complaint, colonoscopy was not done at this facility last September Differential considered: Includes but not limited to diverticulosis diverticulitis colitis inflammatory bowel disease, neoplastic bleed Exam documented above, pertinent findings include: tender left lower quadrant Lab Test results independently reviewed as above. Pertinent findings: WBC 9.5 hemoglobin 16.2 hematocrit 46.8 platelets 266 INR 0.9 Imaging studies independently reviewed: CT abdomen pelvis diverticulosis with differential of diverticulitis /colitis Consultations: None indicated this time Treatments: morphine Zofran normal saline Protonix Cipro Flagyl Re-evaluations: 1:52 p.m.. Reviewed results with patient and . Reviewed CT imaging. Clinically likely diverticulitis, imaging does show colitis. And diverticulosis. However given exam tender to touch left lower quadrant. They do agree for treatment for diverticulitis. Return precautions reviewed. Pain is controlled. Nontoxic at discharge. Antibiotics have been started. Discussion: appropriate for discharge home. Antibiotics have been started. Clinically treating for diverticulitis. They do have primary care and GI services to follow up with. Work note provided. Pain is controlled. Prescriptions provided as well. Nontoxic at discharge. Patient is early in symptoms. Onset 8 hours ago. Diagnosis: acute diverticulitis Discharge Plan Departure Patient Disposition: Home Clinical Impression: Diverticulitis Instructions: DI for Diverticulitis Activity Restrictions/Additional Instructions: no driving or operating machinery today or when taking prescribed pain medication. Exam laboratory studies show possibly diverticulitis and antibiotics have been started as well as pain medication. Please see your family doctor next week and schedule appointment with your gastroenterology services for re-evaluation and possible colonoscopy. Return if worse if any questions or concerns. Keep well hydrated. Prescriptions: New metronidazole 500 mg tablet 500 mg PO TID Qty: 21 0RF ciprofloxacin HCl [Cipro] 500 mg tablet 500 mg PO BID Qty: 14 0RF oxycodone-acetaminophen [Percocet] 5-325 mg tablet 1 tab PO Q4-6H PRN (Reason: pain) Qty: 20 0RF ondansetron 4 mg tablet,disintegrating 4 mg PO Q8H PRN (Reason: nausea and vomiting) Qty: 20 0RF No Action omeprazole 20 mg capsule,delayed release(DR/EC) 20 mg PO QDAY Qty: 90 3RF Rx Instructions: TAKE ONE CAP BY MOUTH DAILY. lisinopril 10 mg tablet 10 mg PO DAILY Qty: 30 3RF (DME) blood-glucose meter [Blood Glucose Monitoring] Kit See Rx Instructions .Route Qty: 1 0RF Rx Instructions: As directed, to test glucose level once daily (DME) blood sugar diagnostic Strip See Rx Instructions .Route Qty: 100 0RF Rx Instructions: As directed, test glucose level once daily (DME) lancets 30 gauge misc See Rx Instructions .Route Qty: 100 0RF Rx Instructions: As directed, to test glucose level once daily naproxen 500 mg tablet 500 mg PO Q12H PRN (Reason: Pain) Rx Instructions: No more than 5 days in a row. Emgality Pen 120 mg/mL pen injector 120 mg SUBCUT QMONTH lorazepam 0.5 mg tablet 0.5 mg PO BID PRN (Reason: anxiety) Qty: 14 0RF amitriptyline 10 mg tablet 10 mg PO BEDTIME epinephrine [EpiPen 2-Reji] 0.3 mg/0.3 mL auto-injector 0.3 mg IM SEE INSTRUCTIONS Qty: 1 3RF Rx Instructions: Follow instructions on label packet estradiol 0.5 mg tablet 0.25 mg PO DAILY Qty: 90 1RF estradiol [Yuvafem] 10 mcg tablet 10 mcg vaginal 2XW Qty: 24 3RF tirzepatide 2.5 mg/0.5 mL pen injector 2.5 mg SUBCUT QWEEK 28 Days Qty: 2 1RF Rx Instructions: ZEPBOUND, not mounjaro Referrals: Ariel Osei, [Primary Care Provider] - Stand Alone Forms: Patient Portal/API, Work Release Note
[2023-12-30] MEDS: MORPHINE 4 MG/ML INJ IV ×2 (11:46→14:11)
--- NOTE | 2023-12-30 12:06 | PC.NURSE ---
Pt reports being awake throughout the night with nausea after she believed I ate bad eggs. This morning 0600 pt reports bright red bleeding in her stool, and having BM's aproximately every hour with blood. She has bilateral lower abdominal pain which is worse with BM. Pt has a history of hemorrhoids, but states this is nothing like that. She denies vomiting. Her drove her to the ER today.
[2023-12-30 13:59] LABS: Appearance Urine UA SL CLOUDY; Bilirubin Urine UA NEGATIVE (NEGATIVE); Color Urine UA YELLOW; Glucose Urine UA NEGATIVE (Negative); Ketones Urine UA NEGATIVE (NEGATIVE); Leukocyte Esterase Urine UA NEGATIVE (NEGATIVE); Nitrite Urine UA NEGATIVE (Negative); Occult Blood Urine UA NEGATIVE (Negative); Protein Urine UA NEGATIVE (Negative); Specific Gravity Urine UA 1.015 (1.000-1.035); Urobilinogen Urine UA 0.2 E.U./dL (0.2)
[2023-12-30 14:09] LABS: pH Urine UA 5.5 (4.5-8.0)
[2023-12-30] MEDS: CIPROFLOXACIN 250 MG TABLET 500 MG PO (14:11)
[2023-12-30] MEDS: metroNIDAZOLE 500 MG TABLET PO (14:11)
[2023-12-30 14:18] LABS: RBC Urine None Seen (0-5/HPF); Urine Volume 10mL (spun); WBC Urine 0-1/HPF (0-5/HPF)
[2023-12-30 14:19] LABS: Bacteria Urine Many (>30); Culture Indicated Urine Cult Not Indicated; Squamous Epithelial Cell Urine 5-10 /HPF (0-5/HPF)
== END 2023-12-30 14:21 | disposition home or self-care (01) ==
PROVIDERS: Emergency Provider Emergency Medicine; PCP Family Medicine
DX: K57.93 Diverticulitis of intestine, part unspecified, without perforation or abscess with bleeding (principal); Z79.899 Other long term (current) drug therapy
CPT/HCPCS: 36415; 74174; 80053; 81001; 85025; 85610; 85730; 86850; 86900; 86901; 96374; 96375; 96376; 99284; C9113; J2270; J2405; Q9967

== ENCOUNTER → 2024-01-29 09:05 | Outpatient (CLI) | payer OTHER, SELFPAY ==
--- NOTE | 2024-01-29 09:07 | DI.MG.S_ITS ---
BILATERAL DIGITAL SCREENING MAMMOGRAM 3D/2D WITH CAD: 01/29/2024 CLINICAL: Routine screening. Comparison is made to exams dated: 01/13/2023 mammogram, 07/14/2022 mammogram, 10/31/2021 mammogram, and 02/28/2021 mammogram - [facility]. Both breasts are heterogeneously dense, which may obscure small masses (category c / 51-75% glandular tissue). Current study was also evaluated with a Computer Aided Detection (CAD) system. No significant masses, calcifications, or other findings are seen in either breast. There has been no significant interval change. IMPRESSION: NEGATIVE There is no mammographic evidence of malignancy. A 1 year screening mammogram is recommended. Based on the Tyrer Cuzick model (a risk assessment model) the patient's lifetime risk is 8.9% and her 10 year risk is 1.7%. According to the ACR, ACS, and NCCN guidelines, an annual breast MRI exam along with mammogram is recommended if the patient's lifetime risk is 20% or greater. This exam was interpreted at Station ID: [id number]. NOTE: For mammograms, a report in lay terms will be sent to the patient. Approximately 15% of breast malignancies will not be visualized mammographically. In the management of a palpable breast mass, a negative mammogram must not discourage biopsy of a clinically suspicious lesion. Electronically Signed By: Satinder galeas/anai:01/31/2024 10:48:40 letter sent: Normal Exam ACR BI-RADS Category 1: Negative [id number]
[2024-01-29 10:24] LABS: Alanine Aminotransferase 58 IU/L (<35); Albumin 3.9 g/dL (3.5-5.0); Albumin Globulin Ratio 1.3 (1.0-2.8); Alkaline Phosphatase 54 U/L (38-126); Aspartate Aminotransferase 44 IU/L (14-36); Bilirubin Total 0.8 mg/dL (0.2-1.3); Blood Urea Nitrogen 9 mg/dL (7-17); Calcium 9.6 mg/dL (8.4-10.2); Carbon Dioxide 29 mmol/L (22-32); Chloride 106 mmol/L (98-107); Cholesterol 222 mg/dL (140-199); Estimated Glomerular Filt Rate > 60 mL/min (>60); Globulin 2.9 g/dL (1.7-4.1); Glucose 98 mg/dL (70-100); HDL Cholesterol 55 mg/dL (40-60); HEMOLYSIS < 15 (0-50); LDL Cholesterol Calculated 130 mg/dL (<100); Potassium 4.7 mmol/L (3.4-5.1); Sodium 137 mmol/L (137-145); Total Protein 6.8 g/dL (6.3-8.2); Triglycerides 187 mg/dL (35-150)
[2024-01-29 11:36] LABS: Hemoglobin A1C% w Est Avg Glu 5.4 % (4.0-6.0)
== END ==
LOC: MAMMO 09:07
PROVIDERS: PCP Family Medicine; Referring Provider Family Medicine; Visit Provider Family Medicine
DX: Z12.31 Encounter for screening mammogram for malignant neoplasm of breast (principal); R92.333 Mammographic heterogeneous density, bilateral breasts; R73.03 Prediabetes; E78.2 Mixed hyperlipidemia
CPT/HCPCS: 36415; 77063; 77067; 80053; 80061; 83036

== ENCOUNTER → 2024-07-05 12:21 | Outpatient (CLI) | payer OTHER, SELFPAY ==
--- NOTE | 2024-07-05 12:23 | DI.RAD.S_ITS ---
PROCEDURE: XR SACRUM COCCYX MIN 2V INDICATIONS: Hx of fx - fell again in March increased pain TECHNIQUE: 3 views of the sacrum and coccyx acquired. COMPARISON: [facility], CR, XR SACRUM COCCYX MIN 2V, 06/13/2020, 12:53. FINDINGS: Bones: No acute fracture or subluxation seen. Possible chronic coccyx fracture appears similar to prior study in 2019. Soft tissues: Visualized bowel gas pattern is nonobstructive. IMPRESSION: No acute osseous abnormality identified Dictated by: Leo Garrett M.D. on 07/05/2024 at 16:11 Approved by: Leo Garrett M.D. on 07/05/2024 at 16:13
== END ==
PROVIDERS: PCP Family Medicine; Referring Provider Physician Assistant; Visit Provider Physician Assistant
DX: M53.3 Sacrococcygeal disorders, not elsewhere classified (principal)
CPT/HCPCS: 72220

== ENCOUNTER 2024-09-14 13:32 | Outpatient (CLI) | payer OTHER, SELFPAY ==
[2024-09-14] VITALS (10 sets, daily range): BP systolic 97–125; BP diastolic 65–79; PULSE 70–84; RESP 16–18; TEMP 36.2; O2SAT 93–100
--- NOTE | 2024-09-14 14:00 | DI.RAD.S_ITS ---
PROCEDURE: PAIN SI JOINT INJECTION INDICATIONS: Coccyx injection COMPARISON: None. FINDINGS: Fluoroscopic spot filming was performed to verify placement of spinal needles at the coccyx =, as labeled on the films. Appropriate location(s) of the needle tip(s) was confirmed by injection of iodinated contrast. IMPRESSION: Intra procedural examination demonstrating appropriate positions of the needles. Dictated by: Aleks Gage M.D. on 09/14/2024 at 16:06 Approved by: Aleks Gage M.D. on 09/14/2024 at 16:07
[2024-09-14] MEDS: MIDAZOLAM 2 MG/2 ML VIAL IV ×2 (14:56→15:01)
[2024-09-14] MEDS: iopamidoL 15 ML VIAL 3 ML INJ (14:59)
[2024-09-14] MEDS: BUPIVACAINE 0.5% (PF) 10 ML VIAL 2 ML INJ (14:59)
[2024-09-14] MEDS: BETAMETHASONE 30 MG/5 ML MDV 12 MG INJ (15:00)
[2024-09-14] MEDS: BETAMETHASONE 30 MG/5 ML MDV 6 MG INJ (15:13)
--- NOTE | 2024-09-14 15:18 | PM.PROC.IR.1 ---
Date/Time/Diagnoses Date of procedure: 09/14/24 Time of procedure: 15:18 Pre-procedure diagnosis: Coccydynia Procedure Notes Procedure: Fluoroscopically guided contrast controlled Coccyx Injection Indications: Coccydynia Physician: Larry Benson Total Fluoroscopy time (seconds): 11 Total sedation minutes: 18 Procedure in detail & Post-procedure care: DESCRIPTION OF PROCEDURE Fluoroscopic guided, contrast controlled coccyx injection Following review of allergies and review of potential side effects and complications, including, but not necessarily limited to, infection, allergic reaction, local tissue breakdown, temporary as well as permanent nerve injury, paralysis, stroke and possible , the patient indicated that they understood and agreed to proceed. An informed consent was signed by the patient, witnessed by a nurse, and placed in the patient's chart. Additionally, other treatment options including modalities, medications, and physical therapy were reviewed with the patient. After review of previous anaesthesic history and IV conscious sedation the patient was deemed safe to proceed with today?s procedure with IV conscious sedation as ASA class II designation. Safety time-out was performed to confirm patient ID, procedure to be performed and site of procedure. IV sedation was accomplished with a combination of 4mg of Versed administered by the RN after DO order, titrated to patient comfort during the course of the procedure while the patient remained responsive to all verbal commands. In the prone position following sterile prep and drape of the pelvic region, the hyper lucency on in the inferior aspect of the coccyx joint was identified fluoroscopically the skin was anesthetized be a 25 gauge 1 eventual with approximately 2cc of 1% lidocaine solution. At this point, a 22 gauge 3inch spinal needle was atraumatically introduced and advanced under fluoroscopic guidance into the inferior aspect of the left sacroiliac joint. Following negative aspiration, approximately 0.3cc of [id number]-300 was injected confirming intra-articular placement without vascular uptake. Radiographic data, including multiple fluoroscopic views of the pelvis, reveals a spinal needle in the coccyx. Subsequent view show flow contrast tear superiorly and inferiorly within the joint capsule without vascular intrathecal uptake. At this point a total of 3cc [id number] or 0.5% Marcaine was combined with 2cc of 12mg of betamethasone was injected without incident. The patient tolerated the procedure well without signs or symptoms of complications prior to transfer to the recovery area for further monitoring. The patient was then transferred to the recovery area with a bur observed for an appropriate time after the injection. The patient reverted a vas score of 7 prior to the procedure and postprocedure vas of 1. POSTOP INSTRUCTIONS The patient was provided with a pain like to continue to record the patient's response to the target specific procedure prior to the patient's follow-up visit with the referring physician. Additionally, specific post injection care instructions and a contact number to our office were provided if concerns arise regarding the possible complications associated with procedure are suspected.
== END 2024-09-14 15:45 | disposition home or self-care (01) ==
LOC: RAD 13:33
PROVIDERS: PCP Family Medicine; Referring Provider Physical Medicine & Rehabilitation; Visit Provider Physical Medicine & Rehabilitation
DX: M53.3 Sacrococcygeal disorders, not elsewhere classified (principal)
CPT/HCPCS: 27096; 99152; J0702; J2250

== ENCOUNTER 2024-09-28 17:03 | Emergency (ER) | payer OTHER, SELFPAY ==
[2024-09-28 17:09] VITALS: BP 152/84; PULSE 89; RESP 18; TEMP 36.6; O2SAT 98; BMI 35.3
--- NOTE | 2024-09-28 17:15 | DI.RAD.S_ITS ---
PROCEDURE: XR CLAVICLE RT INDICATIONS: Pain post boweling since the TECHNIQUE: 2 views of the clavicle were acquired. COMPARISON: None. FINDINGS: Bones: No fractures or dislocations. Tfjw-gl-qnloerfs acromioclavicular joint osteoarthritis is seen. No suspicious bony lesions. Soft tissues: No suspicious soft tissue calcifications. IMPRESSION: No acute right clavicular fracture or dislocation. Wwby-yy-ljbedcuu right acromioclavicular joint osteoarthritis. Dictated by: Serge Santizo M.D. on 09/28/2024 at 17:34 Approved by: Serge Santizo M.D. on 09/28/2024 at 17:34
--- NOTE | 2024-09-28 17:15 | DI.RAD.S_ITS ---
PROCEDURE: XR SHOULDER RT MIN 2V INDICATIONS: Pain post boweling since the TECHNIQUE: 3 views of the shoulder were acquired. COMPARISON: None. FINDINGS: Bones: No fractures or dislocations. Tsvf-vz-pinjiokv osteoarthritic changes are noted in acromioclavicular joint with joint space narrowing, subchondral sclerosis and inferior marginal osteophyte formation. No suspicious bony lesions. Visualized ribs appear intact. Soft tissues: No suspicious soft tissue calcifications. IMPRESSION: No acute right shoulder fracture or dislocation. Tgqn-do-hcwdwvzl acromioclavicular joint osteoarthritis. No gross soft tissue abnormalities. Dictated by: Serge Santizo M.D. on 09/28/2024 at 17:33 Approved by: Serge Santizo M.D. on 09/28/2024 at 17:33
--- NOTE | 2024-09-28 18:15 | ED_ITS ---
HPI - Extremity Injury (Upper) <Mariluz Torres PA-C - Last Filed: 09/28/24 19:13> General Chief Complaint: Extremity Injury, Upper Stated Complaint: rt popping collar bone, rib pain, arm going numb Time Seen by Provider: 09/28/24 18:15 Source: patient Mode of arrival: Ambulatory History of Present Illness HPI narrative: Ms. Olivares is a pleasant 49-year-old female with a past medical history of prediabetes, hypertension, hyperlipidemia, hysterectomy who presents to the emergency department for right shoulder and collarbone pain after bowling on Wednesday. Patient reports while she was bowling she developed acute pain of the right shoulder/scapular region. The pain spread onto her right side under the armpit as well. She continued pulling through the pain. Over the last few days, the pain has spread to her right collar bone and she occasionally feels a popping sensation. When this occurs, the pain sometimes shoots down her arm and is tingling. She denies any direct trauma to the area. Denies midline neck pain, back pain, shortness of breath, fevers, chills, extremity weakness. She takes meloxicam in the morning for chronic pain due to a past coccyx fracture. The patient is with her who contributes to the history. Related Data Home Medications Medication Instructions Recorded Confirmed naproxen 500 mg tablet 500 mg PO Q12H PRN Pain 06/13/20 08/08/24 amitriptyline 10 mg tablet 10 mg PO BEDTIME 12/23/20 08/08/24 Compounded GLP-2 0.5mg SUBCUT QWEEK 07/05/24 08/08/24 erenumab-aooe 140 mg/mL 140 mg SUBCUT QMONTH 07/05/24 08/08/24 subcutaneous auto-injector (Aimovig Autoinjector) propranolol 20 mg tablet 40 mg PO BID 08/08/24 08/08/24 Previous Rx's Medication Instructions Recorded epinephrine 0.3 mg/0.3 mL 0.3 mg (0.3 mL) IM SEE 02/04/23 injection, auto-injector (EpiPen INSTRUCTIONS #1 ea 2-Reji) lorazepam 0.5 mg tablet 0.5 mg PO BID PRN anxiety #14 tabs 04/30/23 estradiol 10 mcg vaginal tablet 10 mcg vaginal 2XW #24 tabs 09/08/23 (Yuvafem) blood-glucose meter (Blood Glucose #1 ea 12/08/23 Monitoring kit) ondansetron 4 mg disintegrating 4 mg PO Q8H PRN nausea and 12/30/23 tablet vomiting #20 tabs lisinopril 10 mg tablet 10 mg PO DAILY #90 tabs 02/01/24 blood sugar diagnostic #100 ea 02/21/24 lancets 30 gauge #100 ea 02/21/24 omeprazole 20 mg capsule,delayed 20 mg PO QDAY #90 caps 06/30/24 release meloxicam 15 mg tablet 15 mg PO DAILY #30 tabs 08/08/24 estradiol 0.5 mg tablet 0.25 mg (1/2 x 0.5 mg) PO DAILY 09/18/24 #45 tabs methocarbamol 500 mg tablet 1,000 mg (2 x 500 mg) PO Q8H PRN 09/28/24 muscle spasm #20 tabs Allergies Allergy/AdvReac Type Severity Reaction Status Date / Time bee venom protein (honey bee) Allergy Severe anaphylaxis Verified 08/08/24 10:19 [BEE VENOM PROTEIN (HONEY BEE)] lovastatin AdvReac Mild myalgia Verified 08/08/24 10:19 Mosquito Allergy Severe Swelling Uncoded 08/08/24 10:19 and turns purple Review of Systems <Mariluz Torres PA-C - Last Filed: 09/28/24 19:13> Review of Systems ROS Unobtainable: All systems reviewed & are unremarkable except as noted in HPI and below Patient History <Mariluz Torres PA-C - Last Filed: 09/28/24 19:13> Medical History Traumatic coccydynia Diverticulosis Pre-diabetes Obesity (BMI 30-39.9) Obesity (BMI 30.0-34.9) Family history of diabetes mellitus Situational anxiety Intussusception of small bowel Leg edema Hypertension De Quervain's tenosynovitis Migraine headache Abnormal mammogram Ovarian cyst, complex Vaginal bleeding Breast nodule Family history of ischemic heart disease Intermittent palpitations (2015) COVID-19 (~11/23/20) Recurrent sinusitis (2011) Foot pain (2010) Ovarian cyst (1996) Infertility (1996) Endometriosis (1996) GERD (gastroesophageal reflux disease) (2012) Urinary incontinence (2004) IBS (irritable bowel syndrome) (2012) Abnormal Pap smear of cervix (1996) Fibroids (1996) History of heavy periods (1996) Irregular periods/menstrual cycles (1996) Painful menstrual periods (1996) Chronic headaches (1999) Surgical History History of total abdominal hysterectomy and bilateral salpingo-oophorectomy S/P bilateral oophorectomy (~07/13/22) Anesthesia Status post left foot surgery (2010) Status post left foot surgery (2011) History of removal of cyst (2003) History of bilateral salpingectomy (03/20/16) Status post laparoscopy (12/10/17) Status post laparoscopy (03/20/16) Status post hysterectomy (06/2009) Status post laparoscopy (2007) Status post laparoscopy (2004) Status post laparoscopy (1998) Status post laparoscopy (1997) Family History Brother Age: 50 High cholesterol Hiatal hernia Schatzki's ring Father Age: 74 Diabetes mellitus High cholesterol Grandfather Heart disease Heart attack Mother Age: 68 Essential hypertension Grandmother Perforated intestine Grandfather Colon cancer Grandmother Diabetes mellitus Social History household members: spouse Smoking Status: Former smoker Tobacco: How many years used: 2 alcohol intake: current substance use type: does not use Smoking Status: Former smoker alcohol intake frequency: holidays/special occasions only Substance Use Type: marijuana Exam <Mariluz Torres PA-C - Last Filed: 09/28/24 19:13> Narrative Exam Narrative: GENERAL: 49 year old patient appears stated age. Well-developed patient, in no acute distress. HEAD: Atraumatic. Normocephalic. EYES: Extraocular motions intact. No scleral icterus. No injection or drainage. ENT: Nose without bleeding, purulent drainage. Airway patent. NECK: Trachea midline. Cervical ROM intact. No midline cervical tenderness. CARDIOVASCULAR: Regular rate and rhythm. RESPIRATORY: ?Nonlabored respirations. ?Speaking in clear, full sentences. ?Clear to auscultation. Breath sounds equal bilaterally. No wheezes, rales, or rhonchi. ? GASTROINTESTINAL: Abdomen soft, non-tender, nondistended. Musculoskeletal: Patient has tenderness to palpation of the right superior scapula and AC joint. She does have full range of motion of the right shoulder but pain with abduction of the shoulder greater than 90?. No palpable bony defects. Right hand is neurovascularly intact with a strong pulse. BACK: Nontender without deformity or crepitance. NEURO: AOx3. ?Clear speech. ?Moves all 4 extremities appropriately. Sensation intact to light touch in the distribution of the median, ulnar, radial nerve of the right hand. SKIN: No rash or erythema of visible areas Initial Vital Signs Initial Vital Signs: Vital Signs Temperature 97.8 F 09/28/24 17:09 Pulse Rate 89 09/28/24 17:09 Respiratory Rate 18 09/28/24 17:09 Blood Pressure 152/84 H 09/28/24 17:09 Pulse Oximetry 98 09/28/24 17:09 Oxygen Delivery Method Room Air 09/28/24 17:09 <Ellie Weiner MD - Last Filed: 09/29/24 00:54> Initial Vital Signs Initial Vital Signs: Vital Signs Temperature 97.8 F 09/28/24 17:09 Pulse Rate 89 09/28/24 17:09 Respiratory Rate 18 09/28/24 17:09 Blood Pressure 152/84 H 09/28/24 17:09 Pulse Oximetry 98 09/28/24 17:09 Oxygen Delivery Method Room Air 09/28/24 17:09 Course <Mariluz Torres PA-C - Last Filed: 09/28/24 19:13> Orders Ordered: ED Orders 09/28/24 17:15 XR clavicle RT Stat XR shoulder RT min 2V Stat Discontinued Medications Acetaminophen (Acetaminophen 325 Mg Tablet) 975 mg PO NOW ONE Stop: 09/28/24 18:34 Last Admin: 09/28/24 18:38 Dose: 975 mg Documented By: TAYO Ketorolac Tromethamine (Ketorolac 30 Mg/Ml Vial) 30 mg IM NOW ONE Stop: 09/28/24 18:34 Last Admin: 09/28/24 18:38 Dose: 30 mg Documented By: TAYO Vital Signs Vital signs: Vital Signs - 8 hr 09/28/24 17:09 09/28/24 19:15 Temperature 97.8 F Pulse Rate 89 90 Respiratory Rate 18 14 Blood Pressure 152/84 H 149/72 H Pulse Oximetry 98 95 Oxygen Delivery Method Room Air Room Air <Ellie Weiner MD - Last Filed: 09/29/24 00:54> Orders Ordered: ED Orders 09/28/24 17:15 XR clavicle RT Stat XR shoulder RT min 2V Stat Discontinued Medications Acetaminophen (Acetaminophen 325 Mg Tablet) 975 mg PO NOW ONE Stop: 09/28/24 18:34 Last Admin: 09/28/24 18:38 Dose: 975 mg Documented By: TAYO Ketorolac Tromethamine (Ketorolac 30 Mg/Ml Vial) 30 mg IM NOW ONE Stop: 09/28/24 18:34 Last Admin: 09/28/24 18:38 Dose: 30 mg Documented By: TAYO Vital Signs Vital signs: Vital Signs - 8 hr 09/28/24 17:09 09/28/24 19:15 Temperature 97.8 F Pulse Rate 89 90 Respiratory Rate 18 14 Blood Pressure 152/84 H 149/72 H Pulse Oximetry 98 95 Oxygen Delivery Method Room Air Room Air MDM - Extremity Injury (Upper) <Mariluz Torres PA-C - Last Filed: 09/28/24 19:13> Imaging Data Clavicle Xray right: Radiologist's Impression: PROCEDURE: XR CLAVICLE RT INDICATIONS: Pain post boweling since the TECHNIQUE: 2 views of the clavicle were acquired. COMPARISON: None. FINDINGS: Bones: No fractures or dislocations. Zitd-bw-gpfshmwc acromioclavicular joint osteoarthritis is seen. No suspicious bony lesions. Soft tissues: No suspicious soft tissue calcifications. IMPRESSION: No acute right clavicular fracture or dislocation. Pprt-bg-qudznkwo right acromioclavicular joint osteoarthritis. Shoulder Xray Right: Radiologist's Impression: PROCEDURE: XR SHOULDER RT MIN 2V INDICATIONS: Pain post boweling since the TECHNIQUE: 3 views of the shoulder were acquired. COMPARISON: None. FINDINGS: Bones: No fractures or dislocations. Oazv-tg-dfplmnbx osteoarthritic changes are noted in acromioclavicular joint with joint space narrowing, subchondral sclerosis and inferior marginal osteophyte formation. No suspicious bony lesions. Visualized ribs appear intact. Soft tissues: No suspicious soft tissue calcifications. IMPRESSION: No acute right shoulder fracture or dislocation. Wahj-yd-nzhrmcsc acromioclavicular joint osteoarthritis. No gross soft tissue abnormalities. MDM Narrative Medical decision making narrative: 49-year-old female presents to the emergency department for right shoulder and clavicle pain after bowling 6 days ago. Differential diagnosis includes but is not limited to shoulder dislocation, clavicle fracture, humerus fracture, scapular fracture, acromioclavicular joint injury, rotator cuff tear, etc. on exam patient is in no acute distress, nontoxic appearing, afebrile. She has rather diffuse tenderness to palpation of the right shoulder region concentrated along superior scapula in the right AC joint. Range of motion intact of the right shoulder. No overlying skin changes. Right arm is neurovascularly intact. X-rays of right shoulder and clavicle were obtained. X-rays reveal no acute bony abnormality however she does have kmbx-og-okyicklw right acromioclavicular joint osteoarthritis. I suspect strain of the right shoulder which is likely exacerbating her underlying osteoarthritis. After shared decision-making with the patient, she was placed into a right arm sling for support and given a 1 time dose of Toradol for pain in addition to Tylenol. I prescribed her a short course of Robaxin if needed for muscle spasm pain and recommended she continue taking meloxicam in addition to using Tylenol and lidocaine patches. Advised she follow up with the primary care doctor and/or an orthopedic doctor for persistent pain. ER return precautions discussed. Patient is stable for discharge at this time. Discharge Plan Departure Patient Disposition: Home Clinical Impression: Osteoarthritis of right AC (acromioclavicular) joint Right shoulder strain Qualifiers: Encounter type: initial encounter Qualified Code(s): S46.911A - Strain of unspecified muscle, fascia and tendon at shoulder and upper arm level, right arm, initial encounter Instructions: DI for Shoulder Sprain Activity Restrictions/Additional Instructions: Today you were evaluated for right-sided pain after a bowling injury. Your x- rays did not reveal any acute fractures or dislocations, but they did show kulj-sz-olbwxfqq right acromioclavicular joint osteoarthritis. X-rays do not tell us about underlying ligament or soft tissue injuries. It is very important to use the right arm sling for comfort, continue taking your meloxicam for anti- inflammatory pain relief, take 1000 mg of Tylenol every 6-8 hours as needed for pain, use lidocaine patches every 12 hours on the right shoulder for pain, and most importantly rest of the right arm. I have prescribed a muscle relaxer for you to use if needed. These may make you drowsy, so do not drink alcohol or drive a car while taking them. Please follow up with your primary care doctor. If you have persistent pain, he may need to follow up with an orthopedic doctor for further evaluation. You may contact [facility] at [phone] to schedule an appointment. Please follow up with your primary care doctor within the next 2-3 days. Return to the emergency department for any new or worsening symptoms, or any other concerns. Thank you for letting me participate in your care, Mariluz Torres PA-C Prescriptions: New methocarbamol 500 mg tablet 1,000 mg PO Q8H PRN (Reason: muscle spasm) Qty: 20 0RF No Action (DME) blood-glucose meter [Blood Glucose Monitoring] Kit See Rx Instructions .Route Qty: 1 0RF Rx Instructions: As directed, to test glucose level once daily lisinopril 10 mg tablet 10 mg PO DAILY Qty: 90 3RF (DME) blood sugar diagnostic Strip See Rx Instructions .Route Qty: 100 3RF Rx Instructions: As directed, test glucose level once daily (DME) lancets 30 gauge misc See Rx Instructions .Route Qty: 100 3RF Rx Instructions: As directed, to test glucose level once daily omeprazole 20 mg capsule,delayed release(DR/EC) 20 mg PO QDAY Qty: 90 3RF Rx Instructions: TAKE ONE CAP BY MOUTH DAILY. estradiol 0.5 mg tablet 0.25 mg PO DAILY Qty: 45 1RF Rx Instructions: 3 month supply naproxen 500 mg tablet 500 mg PO Q12H PRN (Reason: Pain) Hold Instructions: Home Medication placed on hold at Doctor's office Rx Instructions: No more than 5 days in a row. lorazepam 0.5 mg tablet 0.5 mg PO BID PRN (Reason: anxiety) Qty: 14 0RF amitriptyline 10 mg tablet 10 mg PO BEDTIME epinephrine [EpiPen 2-Reji] 0.3 mg/0.3 mL auto-injector 0.3 mg IM SEE INSTRUCTIONS Qty: 1 3RF Rx Instructions: Follow instructions on label packet estradiol [Yuvafem] 10 mcg tablet 10 mcg vaginal 2XW Qty: 24 3RF Aimovig Autoinjector 140 mg/mL auto-injector 140 mg SUBCUT QMONTH Compounded GLP-2 0.5mg SUBCUT QWEEK Rx Instructions: Semaglutide/B12 compound ondansetron 4 mg tablet,disintegrating 4 mg PO Q8H PRN (Reason: nausea and vomiting) Qty: 20 0RF propranolol 20 mg tablet 40 mg PO BID meloxicam 15 mg tablet 15 mg PO DAILY Qty: 30 2RF Referrals: Ariel Osei, [Primary Care Provider] - Stand Alone Forms: Patient Portal/API/Survey, Work Release Note ED Sign-out <Ellie Weiner MD - Last Filed: 09/29/24 00:54> Cosign ED Attending Cosignature Attestation: I did not see this patient. I was available all times for consultation.
[2024-09-28] MEDS: ACETAMINOPHEN 325 MG TABLET 975 MG PO (18:38)
[2024-09-28] MEDS: KETOROLAC 30 MG/ML VIAL IM (18:38)
--- NOTE | 2024-09-28 18:46 | PC.NURSE ---
patient arm assessed by the APC. sling ordered and applied. pt tolerated it well
[2024-09-28 19:15] VITALS: BP 149/72; PULSE 90; RESP 14; O2SAT 95
== END 2024-09-28 19:16 | disposition home or self-care (01) ==
PROVIDERS: Emergency Provider Physician Assistant; PCP Family Medicine
DX: S46.911A Strain of unspecified muscle, fascia and tendon at shoulder and upper arm level, right arm, initial encounter (principal); X58.XXXA Exposure to other specified factors, initial encounter; Y93.54 Activity, bowling; M19.011 Primary osteoarthritis, right shoulder
CPT/HCPCS: 73000; 73030; 96372; 99283; 99284; J1885

== ENCOUNTER → 2024-10-04 11:00 | Outpatient (CLI) | payer OTHER, SELFPAY ==
--- NOTE | 2024-10-04 11:01 | DI.RAD.S_ITS ---
PROCEDURE: XR CERVICAL SPINE 2V OR 3V INDICATIONS: Neck pain; numbness tingling in R shoulder TECHNIQUE: Three views (s) of the cervical spine were acquired. COMPARISON: [facility], CR, XR CLAVICLE RT, 09/28/2024, 17:27. FINDINGS: Cervical spine curvature and alignment: Normal. Bones: There are no osseous abnormalities. Disc spaces: Mild C5-6 degenerative disc disease noted. Intervertebral foramen: Grossly normal in width. Soft tissues: No soft tissue swelling, calcification or mass. IMPRESSION: Mild C5-6 degenerative disc disease. Dictated by: Edilberto Varma M.D. on 10/05/2024 at 11:47 Approved by: Edilberto Varma M.D. on 10/05/2024 at 11:47
== END ==
PROVIDERS: PCP Family Medicine; Referring Provider Physician Assistant; Visit Provider Physician Assistant
DX: M50.322 Other cervical disc degeneration at C5-C6 level (principal); R20.0 Anesthesia of skin; R20.2 Paresthesia of skin
CPT/HCPCS: 72040

== ENCOUNTER → 2024-11-27 12:20 | Outpatient (CLI) | payer OTHER, SELFPAY ==
[2024-11-27 13:48] LABS: Alanine Aminotransferase 36 IU/L (<35); Albumin 4.6 g/dL (3.5-5.0); Albumin Globulin Ratio 1.4 (1.0-2.8); Alkaline Phosphatase 58 U/L (38-126); Aspartate Aminotransferase 38 IU/L (14-36); BUN Creatinine Ratio 19.2 (6-22); Bilirubin Total 0.8 mg/dL (0.2-1.3); Blood Urea Nitrogen 14 mg/dL (7-17); Calcium 9.6 mg/dL (8.4-10.2); Carbon Dioxide 28 mmol/L (22-32); Chloride 101 mmol/L (98-107); Cholesterol 302 mg/dL (140-199); Estimated Glomerular Filt Rate > 60 mL/min (>60); Globulin 3.3 g/dL (1.7-4.1); Glucose 88 mg/dL (70-100); HDL Cholesterol 49 mg/dL (40-60); HEMOLYSIS < 15 (0-50); LDL Cholesterol Calculated 213 mg/dL (<100); Potassium 4.5 mmol/L (3.4-5.1); Sodium 136 mmol/L (137-145); Total Protein 7.9 g/dL (6.3-8.2); Triglycerides 199 mg/dL (35-150)
[2024-11-27 14:16] LABS: TSH w/ Reflex to FT4 0.13 uIU/mL (0.47-4.68)
[2024-11-27 14:41] LABS: Free T4, Direct Thyroxine 1.31 ng/dL (0.78-2.19)
== END ==
PROVIDERS: PCP Family Medicine; Referring Provider Family Medicine; Visit Provider Family Medicine
DX: I10 Essential (primary) hypertension (principal); E78.2 Mixed hyperlipidemia; R73.03 Prediabetes; E66.9 Obesity, unspecified
CPT/HCPCS: 36415; 80053; 80061; 83036; 84439; 84443

== ENCOUNTER 2024-12-07 10:10 | Outpatient (CLI) | payer OTHER, SELFPAY ==
[2024-12-07] VITALS (10 sets, daily range): BP systolic 92–111; BP diastolic 55–66; PULSE 70–81; RESP 13–19; TEMP 35.9; O2SAT 98–100
--- NOTE | 2024-12-07 10:10 | DI.RAD.S_ITS ---
PROCEDURE: PAIN SI JOINT INJECTION INDICATIONS: Right Coccyx injection COMPARISON: [facility], XA, PAIN SI JOINT INJECTION, 09/14/2024, 15:02. FINDINGS/IMPRESSION: Fluoroscopic spot filming was performed to verify placement of spinal needles at the coccyx level(s), as labeled on the films. Appropriate location(s) of the needle tip(s) was confirmed by injection of iodinated contrast. Dictated by: Joel Montemayor M.D. on 12/07/2024 at 14:40 Approved by: Joel Montemayor M.D. on 12/07/2024 at 14:40
[2024-12-07] MEDS: MIDAZOLAM 2 MG/2 ML VIAL IV (11:18)
[2024-12-07] MEDS: BETAMETHASONE 30 MG/5 ML MDV 12 MG INJ (11:21)
[2024-12-07] MEDS: BUPIVACAINE 0.5% (PF) 10 ML VIAL 2 ML INJ (11:21)
[2024-12-07] MEDS: iopamidoL 15 ML VIAL 3 ML INJ (11:22)
[2024-12-07] MEDS: DEXAMETHASONE 10 MG/ML VIAL INJ (11:38)
--- NOTE | 2024-12-07 11:46 | PM.PROC.IR.1 ---
Date/Time/Diagnoses Date of procedure: 12/07/24 Time of procedure: 11:46 Pre-procedure diagnosis: Coccydynia Procedure Notes Procedure: Fluoroscopically guided contrast controlled Coccyx Injection Indications: Coccydynia Physician: Larry Benson Total Fluoroscopy time (seconds): 12 Total sedation minutes: 20 Procedure in detail & Post-procedure care: DESCRIPTION OF PROCEDURE Fluoroscopic guided, contrast controlled coccyx injection Following review of allergies and review of potential side effects and complications, including, but not necessarily limited to, infection, allergic reaction, local tissue breakdown, temporary as well as permanent nerve injury, paralysis, stroke and possible , the patient indicated that they understood and agreed to proceed. An informed consent was signed by the patient, witnessed by a nurse, and placed in the patient's chart. Additionally, other treatment options including modalities, medications, and physical therapy were reviewed with the patient. After review of previous anaesthesic history and IV conscious sedation the patient was deemed safe to proceed with today?s procedure with IV conscious sedation as ASA class II designation. Safety time-out was performed to confirm patient ID, procedure to be performed and site of procedure. IV sedation was accomplished with a combination of 2mg of Versed administered by the RN after DO order, titrated to patient comfort during the course of the procedure while the patient remained responsive to all verbal commands. In the prone position following sterile prep and drape of the pelvic region, the hyper lucency on in the inferior aspect of the coccyx joint was identified fluoroscopically the skin was anesthetized be a 25 gauge 1 eventual with approximately 2cc of 1% lidocaine solution. At this point, a 22 gauge 3inch spinal needle was atraumatically introduced and advanced under fluoroscopic guidance into the inferior aspect of the left sacroiliac joint. Following negative aspiration, approximately 0.3cc of Isovue-300 was injected confirming intra-articular placement without vascular uptake. Radiographic data, including multiple fluoroscopic views of the pelvis, reveals a spinal needle in the coccyx. Subsequent view show flow contrast tear superiorly and inferiorly within the joint capsule without vascular intrathecal uptake. At this point a total of 1cc or 0.5% Marcaine was combined with 1cc of 6mg of betamethasone was injected without incident. The patient tolerated the procedure well without signs or symptoms of complications prior to transfer to the recovery area for further monitoring. The patient was then transferred to the recovery area with and observed for an appropriate time after the injection. The patient reverted a vas score of 7 prior to the procedure and postprocedure vas of 1. POSTOP INSTRUCTIONS The patient was provided with a pain like to continue to record the patient's response to the target specific procedure prior to the patient's follow-up visit with the referring physician. Additionally, specific post injection care instructions and a contact number to our office were provided if concerns arise regarding the possible complications associated with procedure are suspected.
== END 2024-12-07 11:55 | disposition home or self-care (01) ==
LOC: RAD 10:10
PROVIDERS: PCP Family Medicine; Referring Provider Physical Medicine & Rehabilitation; Visit Provider Physical Medicine & Rehabilitation
DX: M53.3 Sacrococcygeal disorders, not elsewhere classified (principal)
CPT/HCPCS: 27096; 99152; J0702; J1100; J2250

== ENCOUNTER 2025-01-25 11:38 | Emergency (ER) | payer OTHER, SELFPAY ==
[2025-01-25 11:42] VITALS: BP 113/74; PULSE 81; RESP 16; TEMP 36.9; O2SAT 100; BMI 32.8
--- NOTE | 2025-01-25 12:26 | ED.HA ---
HPI - Headache <Mariluz Torres PA-C - Last Filed: 01/25/25 15:21> General Chief Complaint: Headache Stated Complaint: Migraine Time Seen by Provider: 01/25/25 12:06 Mode of arrival: Ambulatory History of Present Illness HPI Narrative: Ms. Olivares is a very pleasant 49-year-old female with a past medical history of migraines followed by neurologist Dr. Joyce, HTN, HLD who presents to the emergency department for migraine x 11 days. Patient currently uses Ubrelvy and naproxen for breakthrough migraine pain, is on daily amitriptyline and propranolol, and monthly Aimovig injections for her migraines. States that this regimen has been working well for her and she has not been in the emergency department for at least 1 year for breakthrough migraine however she contacted her neurologist for this breakthrough migraine as he typically treats her with steroids but she is having new symptoms of left eye twitching and occasional sharp pain directly on the top of her head so he prompted that she come to the emergency department for further evaluation. Patient reports current and normal migraine symptoms of nausea, sensitivity to light, headaches, dizziness, new symptoms of left eye twitching and very intermittent sharp stabbing pain directly on the top of her head. She has taken no medications today however she was previously using Ubrelvy and naproxen as she typically would without resolution of the headache. She denies any numbness tingling or weakness except for chronic right cervical radiculopathy. No fevers chills or flu-like symptoms. No visual disturbance. She is here with her . Related Data Home Medications Medication Instructions Recorded Confirmed amitriptyline 10 mg tablet 10 mg PO BEDTIME 12/23/20 11/27/24 Compounded GLP-2 0.5mg SUBCUT QWEEK 07/05/24 11/27/24 erenumab-aooe 140 mg/mL 140 mg SUBCUT QMONTH 07/05/24 11/27/24 subcutaneous auto-injector (Aimovig Autoinjector) propranolol 20 mg tablet 40 mg PO BID 08/08/24 11/27/24 Previous Rx's Medication Instructions Recorded epinephrine 0.3 mg/0.3 mL 0.3 mg (0.3 mL) IM SEE 02/04/23 injection, auto-injector (EpiPen INSTRUCTIONS #1 ea 2-Reji) lorazepam 0.5 mg tablet 0.5 mg PO BID PRN anxiety #14 tabs 04/30/23 estradiol 10 mcg vaginal tablet 10 mcg vaginal 2XW #24 tabs 09/08/23 (Yuvafem) blood-glucose meter (Blood Glucose #1 ea 12/08/23 Monitoring kit) ondansetron 4 mg disintegrating 4 mg PO Q8H PRN nausea and 12/30/23 tablet vomiting #20 tabs blood sugar diagnostic #100 ea 02/21/24 lancets 30 gauge #100 ea 02/21/24 omeprazole 20 mg capsule,delayed 20 mg PO QDAY #90 caps 06/30/24 release meloxicam 15 mg tablet 15 mg PO DAILY #30 tabs 08/08/24 estradiol 0.5 mg tablet 0.25 mg (1/2 x 0.5 mg) PO DAILY 09/18/24 #45 tabs gabapentin 300 mg capsule 300 mg PO BEDTIME #30 caps 10/04/24 diazepam 10 mg tablet (Valium) 10 mg PO .COMPLEX #5 tabs 10/18/24 tramadol 50 mg tablet 50 mg PO BID PRN pain #42 tabs 10/18/24 lovastatin 10 mg tablet 10 mg PO DAILY #90 tabs 12/06/24 lisinopril 10 mg tablet 10 mg PO DAILY #90 tabs 01/12/25 Allergies Allergy/AdvReac Type Severity Reaction Status Date / Time bee venom protein (honey bee) Allergy Severe anaphylaxis Verified 01/25/25 11:42 [BEE VENOM PROTEIN (HONEY BEE)] methocarbamol AdvReac Intermediate Insomnia Verified 01/25/25 11:42 lovastatin AdvReac Mild myalgia Verified 01/25/25 11:42 Mosquito Allergy Severe Swelling Uncoded 01/25/25 11:42 and turns purple Review of Systems <Mariluz Torres PA-C - Last Filed: 01/25/25 15:21> Review of Systems ROS Unobtainable: All systems reviewed & are unremarkable except as noted in HPI and below Patient History <Mariluz Torres PA-C - Last Filed: 01/25/25 15:21> Medical History Borderline hypothyroidism Traumatic coccydynia Diverticulosis Pre-diabetes Obesity (BMI 30-39.9) Obesity (BMI 30.0-34.9) Family history of diabetes mellitus Situational anxiety Intussusception of small bowel Leg edema Hypertension De Quervain's tenosynovitis Migraine headache Abnormal mammogram Ovarian cyst, complex Vaginal bleeding Breast nodule Family history of ischemic heart disease Intermittent palpitations (2015) COVID-19 (~11/23/20) Recurrent sinusitis (2011) Foot pain (2010) Ovarian cyst (1996) Infertility (1996) Endometriosis (1996) GERD (gastroesophageal reflux disease) (2012) Urinary incontinence (2004) IBS (irritable bowel syndrome) (2012) Abnormal Pap smear of cervix (1996) Fibroids (1996) History of heavy periods (1996) Irregular periods/menstrual cycles (1996) Painful menstrual periods (1996) Chronic headaches (1999) Surgical History History of total abdominal hysterectomy and bilateral salpingo-oophorectomy S/P bilateral oophorectomy (~07/13/22) Anesthesia Status post left foot surgery (2010) Status post left foot surgery (2011) History of removal of cyst (2003) History of bilateral salpingectomy (03/20/16) Status post laparoscopy (12/10/17) Status post laparoscopy (03/20/16) Status post hysterectomy (06/2009) Status post laparoscopy (2007) Status post laparoscopy (2004) Status post laparoscopy (1998) Status post laparoscopy (1997) Family History Brother Age: 50 High cholesterol Hiatal hernia Schatzki's ring Father Age: 74 Diabetes mellitus High cholesterol Grandfather Heart disease Heart attack Mother Age: 68 Essential hypertension Grandmother Perforated intestine Grandfather Colon cancer Grandmother Diabetes mellitus Social History household members: spouse Smoking Status: Former smoker Tobacco: How many years used: 2 alcohol intake: current substance use type: does not use Smoking Status: Former smoker alcohol intake frequency: holidays/special occasions only Exam <Mariluz Torres PA-C - Last Filed: 01/25/25 15:21> Narrative Exam Narrative: GENERAL: 49 year old patient appears stated age. Well-developed patient, in no acute distress, Sitting in the emergency architecture department chair. HEAD: Atraumatic. Normocephalic. EYES: PERRL. Extraocular motions intact. No scleral icterus. No injection or drainage. No Ptosis. ENT: Normal TMs bilaterally. Nose without bleeding, purulent drainage. Throat without erythema, tonsillar hypertrophy or exudate. Airway patent. NECK: Trachea midline. Cervical ROM intact. CARDIOVASCULAR: Regular rate and rhythm. RESPIRATORY: Nonlabored respirations. Speaking in clear, full sentences. Clear to auscultation. BACK: Nontender without deformity or crepitance. No flank tenderness. NEURO: AOx3. Clear speech. Moves all 4 extremities appropriately. No facial asymmetry. Sensation intact to light touch on bilateral face and extremities. Normal fmydsb-ehjv-psxrgy, rapid alternating movements, heel-bledsoe. 5/5 bilateral upper and lower strength of extremities intact. SKIN: No rash or erythema of visible areas Initial Vital Signs Initial Vital Signs: Vital Signs Temperature 98.5 F 01/25/25 11:42 Pulse Rate 81 01/25/25 11:42 Respiratory Rate 16 01/25/25 11:42 Blood Pressure 113/74 01/25/25 11:42 Pulse Oximetry 100 01/25/25 11:42 Oxygen Delivery Method Room Air 01/25/25 11:42 <Shauna David MD - Last Filed: 01/25/25 19:57> Initial Vital Signs Initial Vital Signs: Vital Signs Temperature 98.5 F 01/25/25 11:42 Pulse Rate 81 01/25/25 11:42 Respiratory Rate 16 01/25/25 11:42 Blood Pressure 113/74 01/25/25 11:42 Pulse Oximetry 100 01/25/25 11:42 Oxygen Delivery Method Room Air 01/25/25 11:42 Course <Mariluz Torres PA-C - Last Filed: 01/25/25 15:21> Orders Ordered: ED Orders 01/25/25 12:39 CT head/brain wo con Stat Discontinued Medications Acetaminophen (Acetaminophen 325 Mg Tablet) 650 mg PO NOW ONE Stop: 01/25/25 12:40 Last Admin: 01/25/25 12:57 Dose: 650 mg Documented By: TAYO Dexamethasone (Dexamethasone 10 Mg/Ml Vial) 10 mg IV NOW ONE Stop: 01/25/25 12:40 Last Admin: 01/25/25 12:57 Dose: 10 mg Documented By: TAYO Diphenhydramine HCl (Diphenhydramine 50 Mg/Ml Vial) 25 mg IV NOW ONE Stop: 01/25/25 12:40 Last Admin: 01/25/25 12:57 Dose: 25 mg Documented By: TAYO Sodium Chloride (Normal Saline 0.9%) 1,000 mls @ 1,000 mls/hr IV BOLUS ONE Stop: 01/25/25 13:38 Last Infusion: 01/25/25 13:55 Dose: Infused Documented By: Admin: 01/25/25 12:58 Dose: 1,000 mls/hr Documented By: TAYO Ketorolac Tromethamine (Ketorolac 30 Mg/Ml Vial) 15 mg IV NOW ONE Stop: 01/25/25 12:40 Last Admin: 01/25/25 12:57 Dose: 15 mg Documented By: TAYO Metoclopramide HCl (Metoclopramide 10 Mg/2 Ml Inj) 10 mg IV NOW ONE Stop: 01/25/25 12:40 Last Admin: 01/25/25 12:58 Dose: 10 mg Documented By: TAYO Vital Signs Vital signs: Vital Signs - 8 hr 01/25/25 14:59 Temperature 97.7 F Pulse Rate 68 Respiratory Rate 16 Blood Pressure 97/56 L Pulse Oximetry 97 Oxygen Delivery Method Room Air <Shauna David MD - Last Filed: 01/25/25 19:57> Orders Ordered: ED Orders 01/25/25 12:39 CT head/brain wo con Stat Discontinued Medications Acetaminophen (Acetaminophen 325 Mg Tablet) 650 mg PO NOW ONE Stop: 01/25/25 12:40 Last Admin: 01/25/25 12:57 Dose: 650 mg Documented By: TAYO Dexamethasone (Dexamethasone 10 Mg/Ml Vial) 10 mg IV NOW ONE Stop: 01/25/25 12:40 Last Admin: 01/25/25 12:57 Dose: 10 mg Documented By: TAYO Diphenhydramine HCl (Diphenhydramine 50 Mg/Ml Vial) 25 mg IV NOW ONE Stop: 01/25/25 12:40 Last Admin: 01/25/25 12:57 Dose: 25 mg Documented By: TAYO Sodium Chloride (Normal Saline 0.9%) 1,000 mls @ 1,000 mls/hr IV BOLUS ONE Stop: 01/25/25 13:38 Last Infusion: 01/25/25 13:55 Dose: Infused Documented By: Admin: 01/25/25 12:58 Dose: 1,000 mls/hr Documented By: TAYO Ketorolac Tromethamine (Ketorolac 30 Mg/Ml Vial) 15 mg IV NOW ONE Stop: 01/25/25 12:40 Last Admin: 01/25/25 12:57 Dose: 15 mg Documented By: TAYO Metoclopramide HCl (Metoclopramide 10 Mg/2 Ml Inj) 10 mg IV NOW ONE Stop: 01/25/25 12:40 Last Admin: 01/25/25 12:58 Dose: 10 mg Documented By: TAYO Vital Signs Vital signs: Vital Signs - 8 hr 01/25/25 14:59 Temperature 97.7 F Pulse Rate 68 Respiratory Rate 16 Blood Pressure 97/56 L Pulse Oximetry 97 Oxygen Delivery Method Room Air MDM - Headache <Mariluz Torres PA-C - Last Filed: 01/25/25 15:21> Medical Records Attestation: I reviewed the patient's medical records. Lab Data Labs: Point of Care Testing Test Results Negative Urine Dip Bedside Urine Glucose Negative Bedside Urine Bilirubin - Negative Bedside Urine Ketone - Negative Urine Specific [place] 1.005 Bedside Urine Occult Blood - Negative Bedside Urine pH 7.0 Bedside Urine Protein - Negative Bedside Urine Urobilinogen - Negative Bedside Urine Nitrite - Negative Bedside Urine Leukocytes - Negative Esterase Imaging Data CT scan - head: Radiologist's Impression: PROCEDURE: CT HEAD/BRAIN WO CON INDICATIONS: hx migraines; day 11 of migraine w/ diff sx; no trauma TECHNIQUE: Noncontrast 4.5 mm thick angled axial sections acquired from the foramen magnum to the vertex, with coronal and sagittal reformats. For radiation dose reduction, the following was used: automated exposure control, adjustment of mA and/or kV according to patient size. COMPARISON: None. FINDINGS: Image quality: Diagnostic. CSF spaces: Basal cisterns are patent. No extra-axial fluid collections. Ventricles are normal in size and shape. Brain: No midline shift. No intracranial masses or hemorrhage. Khan-white matter interface is normal. Skull and face: Calvarium and visualized facial bones are intact, without suspicious lesions. Sinuses: Visualized sinuses and mastoids are clear. IMPRESSION: No acute intracranial pathology. MDM Narrative Medical decision making narrative: 49-year-old female with a past medical history of migraines followed by neurologist Dr. Joyce, HTN, HLD who presents to the emergency department for migraine x 11 days. Differential diagnosis includes but is not limited to atypical migraine, breakthrough migraine, intracranial abnormality, etc. on exam the patient is in no acute distress, nontoxic appearing, vital signs within normal limits and no focal neurologic deficits. She is having persistent migraine with some new symptoms of left eye occasional twitching and sharp pain on the top of her head which prompted her ED evaluation, was recommended to come by her neurologist. We will proceed with CT imaging to rule out mass or other intracranial abnormality and treat with migraine cocktail consisting of IV fluids, Reglan, Benadryl, Toradol, oral acetaminophen. CT scan head reveals no acute intracranial pathology. Patient was sleeping after ED treatments, reports improvement in symptoms, not total resolution of migraine however she does feel comfortable going home resuming normal medications. Recommended prompt follow up with Neurology, resume daily medications, use naproxen for breakthrough pain later tonight as needed. We discussed that eye twitching can sometimes be a result of stress/pain or perhaps atypical migraine symptom. Strict ED return precautions were discussed. Patient verbalized understanding of all information is agreeable to the plan and she is stable for discharge home. <Shauna David MD - Last Filed: 01/25/25 19:57> Lab Data Labs: Point of Care Testing Test Results Negative Urine Dip Bedside Urine Glucose Negative Bedside Urine Bilirubin - Negative Bedside Urine Ketone - Negative Urine Specific [place] 1.005 Bedside Urine Occult Blood - Negative Bedside Urine pH 7.0 Bedside Urine Protein - Negative Bedside Urine Urobilinogen - Negative Bedside Urine Nitrite - Negative Bedside Urine Leukocytes - Negative Esterase Discharge Plan Departure Patient Disposition: Home Clinical Impression: Migraine Qualifiers: Migraine type: unspecified Status migrainosus presence: without status migrainosus Intractability: not intractable Qualified Code(s): G43.909 - Migraine, unspecified, not intractable, without status migrainosus Instructions: DI for Migraine Activity Restrictions/Additional Instructions: Dear Ms. Olivares, Thank you for coming to the Emergency department. Today we obtain a CT scan of your head which revealed no acute intracranial pathology. At approximately 12:40 p.m., you were treated with a migraine cocktail consisting of IV fluids, Benadryl, Reglan, Toradol, Decadron (dexamethasone 10mg) and oral acetaminophen. Please resume your normal daily migraine preventative medications, and you may take naproxen again this evening with dinner time. Please follow up with your neurologist and return to the emergency department for any new or worsening symptoms, visual disturbance, upper extremity numbness tingling or weakness, facial asymmetry, or any other concerns. Please follow up with your primary care doctor within the next 2-3 days for ER follow-up. (If you do not have a PCP you can call [phone]. to schedule an appointment with an [facility] Primary Care Provider) IF YOU DEVELOP ANY NEW OR WORSENING SYMPTOMS, RETURN TO THE ER! Please read the attached instructions, they highlight more specific treatments and interventions for you at home. Thank you for letting me participate in your care, Mariluz Torres PA-C Prescriptions: No Action (DME) blood-glucose meter [Blood Glucose Monitoring] Kit See Rx Instructions .Route Qty: 1 0RF Rx Instructions: As directed, to test glucose level once daily (DME) blood sugar diagnostic Strip See Rx Instructions .Route Qty: 100 3RF Rx Instructions: As directed, test glucose level once daily (DME) lancets 30 gauge misc See Rx Instructions .Route Qty: 100 3RF Rx Instructions: As directed, to test glucose level once daily omeprazole 20 mg capsule,delayed release(DR/EC) 20 mg PO QDAY Qty: 90 3RF Rx Instructions: TAKE ONE CAP BY MOUTH DAILY. estradiol 0.5 mg tablet 0.25 mg PO DAILY Qty: 45 1RF Rx Instructions: 3 month supply lisinopril 10 mg tablet 10 mg PO DAILY Qty: 90 3RF lorazepam 0.5 mg tablet 0.5 mg PO BID PRN (Reason: anxiety) Qty: 14 0RF gabapentin 300 mg capsule 300 mg PO BEDTIME Qty: 30 1RF amitriptyline 10 mg tablet 10 mg PO BEDTIME epinephrine [EpiPen 2-Reji] 0.3 mg/0.3 mL auto-injector 0.3 mg IM SEE INSTRUCTIONS Qty: 1 3RF Rx Instructions: Follow instructions on label packet estradiol [Yuvafem] 10 mcg tablet 10 mcg vaginal 2XW Qty: 24 3RF Aimovig Autoinjector 140 mg/mL auto-injector 140 mg SUBCUT QMONTH Compounded GLP-2 0.5mg SUBCUT QWEEK Rx Instructions: Semaglutide/B12 compound lovastatin 10 mg tablet 10 mg PO DAILY Qty: 90 3RF ondansetron 4 mg tablet,disintegrating 4 mg PO Q8H PRN (Reason: nausea and vomiting) Qty: 20 0RF propranolol 20 mg tablet 40 mg PO BID meloxicam 15 mg tablet 15 mg PO DAILY Qty: 30 2RF tramadol 50 mg tablet 50 mg PO BID PRN (Reason: pain) Qty: 42 1RF diazepam [Valium] 10 mg tablet 10 mg PO .COMPLEX MDD 3 tabs Qty: 5 0RF Rx Instructions: 1 to 2 tabs 1hr prior to spinal procedure. May take an additional tab if steroid flare experienced the night after the procedure. Referrals: Ariel Osei DO [Primary Care Provider] - Stand Alone Forms: Patient Portal/API/Survey ED Sign-out <Shauna David MD - Last Filed: 01/25/25 19:57> Cosign ED Attending Cosignature Attestation: I was immediately available in the department for consultation throughout this patient's visit. Shauna David MD
--- NOTE | 2025-01-25 12:39 | DI.CT.S_ITS ---
PROCEDURE: CT HEAD/BRAIN WO CON INDICATIONS: hx migraines; day 11 of migraine w/ diff sx; no trauma TECHNIQUE: Noncontrast 4.5 mm thick angled axial sections acquired from the foramen magnum to the vertex, with coronal and sagittal reformats. For radiation dose reduction, the following was used: automated exposure control, adjustment of mA and/or kV according to patient size. COMPARISON: None. FINDINGS: Image quality: Diagnostic. CSF spaces: Basal cisterns are patent. No extra-axial fluid collections. Ventricles are normal in size and shape. Brain: No midline shift. No intracranial masses or hemorrhage. Khan-white matter interface is normal. Skull and face: Calvarium and visualized facial bones are intact, without suspicious lesions. Sinuses: Visualized sinuses and mastoids are clear. IMPRESSION: No acute intracranial pathology. Dictated by: Francesco Bailey M.D. on 01/25/2025 at 13:36 Approved by: Francesco Bailey M.D. on 01/25/2025 at 13:37
[2025-01-25] MEDS: DEXAMETHASONE 10 MG/ML VIAL IV (12:57)
[2025-01-25] MEDS: ACETAMINOPHEN 325 MG TABLET 650 MG PO (12:57)
[2025-01-25] MEDS: KETOROLAC 30 MG/ML VIAL 15 MG IV (12:57)
[2025-01-25] MEDS: diphenhydrAMINE 50 MG/ML VIAL 25 MG IV (12:57)
[2025-01-25] MEDS: SODIUM CHLORIDE 0.9% 1,000 ML 1000 ML IV (12:58)
[2025-01-25] MEDS: METOCLOPRAMIDE 10 MG/2 ML INJ IV (12:58)
--- NOTE | 2025-01-25 13:27 | PC.NURSE ---
pt reports multiple significant life stressors (multiple family member deaths). plus job searching.
--- NOTE | 2025-01-25 13:28 | PC.NURSE ---
Iv placed by another nurse
[2025-01-25 14:59] VITALS: BP 97/56; PULSE 68; RESP 16; TEMP 36.5; O2SAT 97
== END 2025-01-25 14:59 | disposition home or self-care (01) ==
PROVIDERS: Emergency Provider Physician Assistant; PCP Family Medicine
DX: G43.909 Migraine, unspecified, not intractable, without status migrainosus (principal)
CPT/HCPCS: 36415; 70450; 81003; 81025; 96361; 96374; 96375; 99284; J1100; J1200; J1885; J2765

== ENCOUNTER → 2025-03-28 07:46 | Outpatient (CLI) | payer OTHER, SELFPAY ==
--- NOTE | 2025-03-28 07:48 | DI.MRI.S_ITS ---
PROCEDURE: MR HEAD/BRAIN WO CON INDICATIONS: Facial numbness and headaches TECHNIQUE: Noncontrast axial T1 spin echo, axial T2 fast spin echo, sagittal and axial FLAIR, coronal T2 fast spin echo, axial gradient echo, axial diffusion and ADC through the brain. COMPARISON: [facility], CT, CT HEAD/BRAIN WO CON, 01/25/2025, 13:04. FINDINGS: Image quality: Excellent. CSF Spaces: Basal cisterns are patent. No extra-axial fluid collections. Ventricles are normal in size and shape. Brain: No intracranial masses or hemorrhage. A few, punctate foci of increased T2 signal noted in the frontal and parietal subcortical white matter. Khan/white matter interface is normal. Brainstem appears normal. Diffusion-weighted images demonstrate no acute infarct. No chronic ischemic insults. Normal intravascular flow voids are present. Skull and face: Calvarium has normal marrow signal. Orbits appear normal. Sinuses: Sinuses and mastoids are clear. IMPRESSION: No acute intracranial disease process. No abnormal intracranial mass or intracranial hemorrhage. A few, punctate foci of increased T2 signal in the frontal and parietal subcortical white matter. Finding is nonspecific may represent minimal chronic microvascular ischemic change, sequela of of microangiopathy related to longstanding hypertension or diabetes or could be related to migraine headaches. Dictated by: Tita Nobles MD, PhD on 03/28/2025 at 10:20 Approved by: Tita Nobles MD, PhD on 03/28/2025 at 10:23
--- NOTE | 2025-03-28 07:48 | DI.MG.S_ITS ---
MM screening mammo BI: 03/28/2025. BI-RADS: 1 CLINICAL: 50-year old female for bilateral screening mammogram. Tyrer-Cuzick lifetime risk of 10.7%. No personal or first-degree family history of breast cancer. PRIOR EXAMS 01/29/2024, 01/13/2023, 07/14/2022, 10/31/2021, 03/07/2021, 02/28/2021. MAMMOGRAPHY TECHNIQUE: 2D and 3D (tomosynthesis) digital mammographic views obtained, with additional images as needed for full coverage. Current study was also evaluated with a Computer Aided Detection (CAD) system. DENSITY C. The breasts are heterogeneously dense, which may obscure small masses. MAMMOGRAPHY FINDINGS Bilateral: No suspicious mass, asymmetry, microcalcification, or other abnormality seen. No significant change from comparison. IMPRESSION: * No evidence of malignancy. RECOMMENDATIONS Bilateral * Annual screening mammography. OVERALL ASSESSMENT CATEGORY BI-RADS-1: Negative. The [employer] recommends annual screening mammography beginning at age 40 for women with average risk of breast cancer. ELECTRONICALLY SIGNED: Evelin Altamirano M.D. on 03/28/2025 at 03:10:26 PM PT Interpreting Station ID: [id number]
== END ==
PROVIDERS: PCP Family Medicine; Visit Provider Psychiatry & Neurology Neurology
DX: R20.0 Anesthesia of skin (principal); G44.52 New daily persistent headache (NDPH); R92.333 Mammographic heterogeneous density, bilateral breasts
CPT/HCPCS: 70551; 77063; 77067

== ENCOUNTER 2025-06-11 14:03 | Emergency (ER) | payer OTHER, SELFPAY ==
[2025-06-11 14:19] VITALS: PULSE 63; RESP 18; TEMP 36.2; O2SAT 100; BMI 32.1
[2025-06-11 14:22] VITALS: BP 109/68; PULSE 66; RESP 16; TEMP 36.3; O2SAT 100; BMI 32.1
--- NOTE | 2025-06-12 13:48 | ED.HA ---
HPI - Headache General Chief Complaint: Headache Stated Complaint: MIGRAINE Time Seen by Provider: 06/11/25 17:26 Mode of arrival: Ambulatory History of Present Illness HPI Narrative: never saw patient Related Data Home Medications ?Medication ?Instructions ?Recorded ?Confirmed amitriptyline 10 mg tablet 10 mg PO BEDTIME 12/23/20 11/27/24 Compounded GLP-2 0.5mg SUBCUT QWEEK 07/05/24 11/27/24 erenumab-aooe 140 mg/mL 140 mg SUBCUT QMONTH 07/05/24 11/27/24 subcutaneous auto-injector (Aimovig Autoinjector) propranolol 20 mg tablet 40 mg PO BID 08/08/24 11/27/24 Previous Rx's ?Medication ?Instructions ?Recorded epinephrine 0.3 mg/0.3 mL 0.3 mg (0.3 mL) IM SEE 02/04/23 injection, auto-injector (EpiPen INSTRUCTIONS #1 ea 2-Reji) lorazepam 0.5 mg tablet 0.5 mg PO BID PRN anxiety #14 tabs 04/30/23 estradiol 10 mcg vaginal tablet 10 mcg vaginal 2XW #24 tabs 09/08/23 (Yuvafem) blood-glucose meter (Blood Glucose #1 ea 12/08/23 Monitoring kit) ondansetron 4 mg disintegrating 4 mg PO Q8H PRN nausea and 12/30/23 tablet vomiting #20 tabs blood sugar diagnostic #100 ea 02/21/24 lancets 30 gauge #100 ea 02/21/24 meloxicam 15 mg tablet 15 mg PO DAILY #30 tabs 08/08/24 gabapentin 300 mg capsule 300 mg PO BEDTIME #30 caps 10/04/24 diazepam 10 mg tablet (Valium) 10 mg PO .COMPLEX #5 tabs 10/18/24 tramadol 50 mg tablet 50 mg PO BID PRN pain #42 tabs 10/18/24 lovastatin 10 mg tablet 10 mg PO DAILY #90 tabs 12/06/24 lisinopril 10 mg tablet 10 mg PO DAILY #90 tabs 01/12/25 estradiol 0.5 mg tablet 0.25 mg (1/2 x 0.5 mg) PO DAILY 03/02/25 #45 tabs omeprazole 20 mg capsule,delayed 20 mg PO DAILY #90 caps 05/22/25 release Allergies Allergy/AdvReac Type Severity Reaction Status Date / Time bee venom protein (honey Allergy Severe anaphylaxis Verified 06/11/25 14:19 bee) (BEE VENOM PROTEIN (HONEY BEE)) methocarbamol AdvReac Intermediate Insomnia Verified 06/11/25 14:19 lovastatin AdvReac Mild myalgia Verified 06/11/25 14:19 Mosquito Allergy Severe Swelling Uncoded 06/11/25 14:19 and turns purple Patient History Medical History Borderline hypothyroidism Traumatic coccydynia Diverticulosis Pre-diabetes Obesity (BMI 30-39.9) Obesity (BMI 30.0-34.9) Family history of diabetes mellitus Situational anxiety Intussusception of small bowel Leg edema Hypertension De Quervain's tenosynovitis Migraine headache Abnormal mammogram Ovarian cyst, complex Vaginal bleeding Breast nodule Family history of ischemic heart disease Intermittent palpitations (2015) COVID-19 (~11/23/20) Recurrent sinusitis (2011) Foot pain (2010) Ovarian cyst (1996) Infertility (1996) Endometriosis (1996) GERD (gastroesophageal reflux disease) (2012) Urinary incontinence (2004) IBS (irritable bowel syndrome) (2012) Abnormal Pap smear of cervix (1996) Fibroids (1996) History of heavy periods (1996) Irregular periods/menstrual cycles (1996) Painful menstrual periods (1996) Chronic headaches (1999) Surgical History History of total abdominal hysterectomy and bilateral salpingo-oophorectomy S/P bilateral oophorectomy (~07/13/22) Anesthesia Status post left foot surgery (2010) Status post left foot surgery (2011) History of removal of cyst (2003) History of bilateral salpingectomy (03/20/16) Status post laparoscopy (12/10/17) Status post laparoscopy (03/20/16) Status post hysterectomy (06/2009) Status post laparoscopy (2007) Status post laparoscopy (2004) Status post laparoscopy (1998) Status post laparoscopy (1997) Family History Brother Age: 50 High cholesterol Hiatal hernia Schatzki's ring Father Age: 74 Diabetes mellitus High cholesterol Grandfather Heart disease Heart attack Mother Age: 68 Essential hypertension Grandmother Perforated intestine Grandfather Colon cancer Grandmother Diabetes mellitus Social History household members: spouse Tobacco: How many years used: 2 alcohol intake: current substance use type: does not use alcohol intake frequency: holidays/special occasions only Exam Initial Vital Signs Initial Vital Signs: Vital Signs Temperature 97.2 F L 06/11/25 14:19 Pulse Rate 63 06/11/25 14:19 Respiratory Rate 18 06/11/25 14:19 Pulse Oximetry 100 06/11/25 14:19 Oxygen Delivery Method Room Air 06/11/25 14:19 Discharge Plan Departure Patient Disposition: Left Without Being Seen Clinical Impression: Patient left after triage Prescriptions: No Action (DME) blood-glucose meter [Blood Glucose Monitoring] Kit See Rx Instructions .Route Qty: 1 0RF Rx Instructions: As directed, to test glucose level once daily (DME) blood sugar diagnostic Strip See Rx Instructions .Route Qty: 100 3RF Rx Instructions: As directed, test glucose level once daily (DME) lancets 30 gauge misc See Rx Instructions .Route Qty: 100 3RF Rx Instructions: As directed, to test glucose level once daily lisinopril 10 mg tablet 10 mg PO DAILY Qty: 90 3RF estradiol 0.5 mg tablet 0.25 mg PO DAILY Qty: 45 3RF omeprazole 20 mg capsule,delayed release(DR/EC) 20 mg PO DAILY Qty: 90 2RF lorazepam 0.5 mg tablet 0.5 mg PO BID PRN (Reason: anxiety) Qty: 14 0RF gabapentin 300 mg capsule 300 mg PO BEDTIME Qty: 30 1RF amitriptyline 10 mg tablet 10 mg PO BEDTIME epinephrine [EpiPen 2-Reji] 0.3 mg/0.3 mL auto-injector 0.3 mg IM SEE INSTRUCTIONS Qty: 1 3RF Rx Instructions: Follow instructions on label packet estradiol [Yuvafem] 10 mcg tablet 10 mcg vaginal 2XW Qty: 24 3RF Aimovig Autoinjector 140 mg/mL auto-injector 140 mg SUBCUT QMONTH Compounded GLP-2 0.5mg SUBCUT QWEEK Rx Instructions: Semaglutide/B12 compound lovastatin 10 mg tablet 10 mg PO DAILY Qty: 90 3RF ondansetron 4 mg tablet,disintegrating 4 mg PO Q8H PRN (Reason: nausea and vomiting) Qty: 20 0RF propranolol 20 mg tablet 40 mg PO BID meloxicam 15 mg tablet 15 mg PO DAILY Qty: 30 2RF tramadol 50 mg tablet 50 mg PO BID PRN (Reason: pain) Qty: 42 1RF diazepam [Valium] 10 mg tablet 10 mg PO .COMPLEX MDD 3 tabs Qty: 5 0RF Rx Instructions: 1 to 2 tabs 1hr prior to spinal procedure. May take an additional tab if steroid flare experienced the night after the procedure.
== END 2025-06-11 17:30 | disposition left against medical advice (07) ==
PROVIDERS: Emergency Provider Family Medicine; PCP Family Medicine
DX: Z53.21 Procedure and treatment not carried out due to patient leaving prior to being seen by health care provider (principal)
CPT/HCPCS: 99281

== ENCOUNTER → 2025-08-09 16:01 | Outpatient (CLI) | payer OTHER, SELFPAY ==
--- NOTE | 2025-08-09 16:03 | DI.RAD.S_ITS ---
PROCEDURE: XR CHEST 2V INDICATIONS: Lymphadenopathy TECHNIQUE: 2 views of the chest were acquired. COMPARISON: Chest x-ray [facility] 09/16/2023. FINDINGS: Mild bibasilar subsegmental atelectasis some of which commonly related expiratory result. Cardiopericardial silhouette and pulmonary vasculature within normal limits. No pneumothorax, no pleural effusion, no focal consolidation. Degenerative changes thoracic spine unchanged IMPRESSION: Mild bibasilar subsegmental atelectasis. Otherwise negative chest. If symptoms persist or worsen, or there is high clinical suspicion of thoracic abnormality, CT chest could be performed. Dictated by: Jay Quintero M.D. on 08/10/2025 at 21:33 Approved by: Jay Quintero M.D. on 08/10/2025 at 21:35
[2025-08-09 17:07] LABS: Add Manual Diff / Slide Review NO; Hematocrit 41.4 % (36-46); Hemoglobin 14.4 g/dL (12.0-16.0); Lymphocytes Absolute Auto 3200 /uL (1100-4500); Mean Corpuscular HGB Conc 34.7 % (30-36); Mean Corpuscular Hemoglobin 32.0 PG (26-34); Mean Corpuscular Volume 92.4 fL (80-100); Platelet Count 283 X10^3/uL (150-400)
[2025-08-09 17:27] LABS: Alanine Aminotransferase 14 IU/L (<35); Albumin 4.6 g/dL (3.5-5.0); Albumin Globulin Ratio 1.4 (1.0-2.8); Alkaline Phosphatase 61 U/L (38-126); Blood Urea Nitrogen 10 mg/dL (7-17); Calcium 9.7 mg/dL (8.4-10.2); Carbon Dioxide 32 mmol/L (22-32); Chloride 96 mmol/L (98-107); Cholesterol 273 mg/dL (140-199); Estimated Glomerular Filt Rate > 60 mL/min (>60); Globulin 3.3 g/dL (1.7-4.1); Glucose 86 mg/dL (70-99); HDL Cholesterol 64 mg/dL (40-60); HEMOLYSIS < 15 (0-50); Potassium 4.2 mmol/L (3.4-5.1); Sodium 134 mmol/L (137-145); Total Protein 7.9 g/dL (6.3-8.2); Triglycerides 158 mg/dL (35-150)
[2025-08-09 17:58] LABS: Thyroid Stimulating Hormone 1.08 uIU/mL (0.47-4.68)
[2025-08-09 18:19] LABS: Free T4, Direct Thyroxine 1.32 ng/dL (0.78-2.19)
== END ==
PROVIDERS: PCP Family Medicine; Referring Provider Family Medicine; Visit Provider Family Medicine
DX: J98.11 Atelectasis (principal); R59.1 Generalized enlarged lymph nodes; J06.9 Acute upper respiratory infection, unspecified; E78.2 Mixed hyperlipidemia
CPT/HCPCS: 36415; 71046; 80053; 80061; 84439; 84443; 85025

== ENCOUNTER → 2025-08-14 15:11 | Outpatient (CLI) | payer OTHER, SELFPAY ==
--- NOTE | 2025-08-14 15:12 | DI.US.S_ITS ---
PROCEDURE: US SOFT TISSUE HEAD AND NECK INDICATIONS: 3 PALPABLE NECK LUMPS BILATERAL TECHNIQUE: Real-time scanning was performed of the neck region of interest, with image documentation. COMPARISON: None. FINDINGS: Findings as follows in the three areas of palpable neck lumps: 1. Left inferior lateral neck, there is a 0.8 x 0.2 x 0.6 cm lymph node with normal sonographic appearance including preserved fatty hilum and normal cortical thickness 2. Left submandibular region, there is a 1.2 x 0.5 x 1.2 cm lymph node with normal sonographic appearance including preserved fatty hilum and normal cortical thickness measuring 3 mm 3. Right inferior lateral neck, there is a 0.5 x 0.4 x 0.5 cm lymph node with normal sonographic appearance including preserved fatty hilum and normal cortical thickness IMPRESSION: In the area of palpable neck lumps described, there are sonographically normal appearing lymph nodes. No sonographic abnormality. Dictated by: Antonio Ortiz M.D. on 08/14/2025 at 18:18 Approved by: Antonio Ortiz M.D. on 08/14/2025 at 18:22
== END ==
LOC: US 15:11
PROVIDERS: PCP Family Medicine; Referring Provider Family Medicine; Visit Provider Family Medicine
DX: R22.1 Localized swelling, mass and lump, neck (principal); R59.1 Generalized enlarged lymph nodes
CPT/HCPCS: 76536

== ENCOUNTER → 2025-09-12 16:29 | Outpatient (CLI) | payer OTHER, SELFPAY ==
--- NOTE | 2025-09-12 16:31 | DI.RAD.S_ITS ---
PROCEDURE: XR CHEST 2V INDICATIONS: f/u TECHNIQUE: 2 views of the chest were acquired. COMPARISON: [facility], , XR CHEST 2V, 08/09/2025, 15:11. [facility], , XR CHEST 2V, 11/10/2018, 13:17. FINDINGS: Surgical changes and devices: None. Lungs and pleura: Mild streaky opacity in the right middle lobe. Appear similar to 2018. No consolidation. No pleural effusions or pneumothorax. Mediastinum: Mediastinal contours are normal. Heart size is normal. Bones and chest wall: No suspicious bony abnormalities. Soft tissues appear unremarkable. IMPRESSION: Mild streaky opacity in the right middle lobe. However, this appears similar to 2018. This could represent scarring. If clinically indicated CT chest could be considered for further evaluation. Dictated by: John Johnson M.D. on 09/13/2025 at 8:13 Approved by: John Johnson M.D. on 09/13/2025 at 8:18
== END ==
PROVIDERS: PCP Family Medicine; Referring Provider Family Medicine; Visit Provider Family Medicine
DX: J06.9 Acute upper respiratory infection, unspecified (principal); R59.1 Generalized enlarged lymph nodes
CPT/HCPCS: 71046